=== PATIENT | male | born 1965 | race African-American/Black ===

== ENCOUNTER 2021-02-03 14:14 | Inpatient (IN) | payer MEDICARE, OTHER ==
[~2021-02-03] VITALS: Ht 154.9 cm; Wt 54.4 kg
[2021-02-03] VITALS (12 sets, daily range): BP systolic 80–166; BP diastolic 53–111
[~2021-02-03 14:14] MED LIST: ACET-868 GT; ALBU8.5H8 IH; ASPI-1169 GT; ATOR20TA GT; BISA10SU11 RC; CHOL400T11 GT; DOCU-141 GT; FAMO40TA7 GT; INSU100V11 SQ; MERO500P IV; METO-295 GT; NUT.237L67 GT; TOBRAMYCIN INJ; ZINC1CAP3 GT
[2021-02-03] MEDS ORDERED: ACETAMINOPHEN 650 MG/SUPP.RECT RC ONE ×2 (14:30→14:43)
--- NOTE | 2021-02-03 15:05 | NUR ---
[facility] FOR LOW BLOOD PRESSURE. NOT DIALYZED TODAY. PT EYES OPEN, NONVERBAL. RR EVEN & UNLABORED. ON VENT 100%. PLACED ON CAR CARDER, SR. PT SEEN & EVAL'D BY DR. RINCON. WILL CONT TO MONITOR.
[2021-02-03 15:20] LABS: BASOPHILS # (AUTO) 0.1 /CMM (0.0-0.2); BASOPHILS % (AUTO) 0.7 % (0.0-2.0); EOSINOPHILS % (AUTO) 2.1 % (0.0-6.0); LYMPHOCYTES # (AUTO) 0.9 /CMM (0.8-4.8); LYMPHOCYTES % (AUTO) 4.6 % (20.0-44.0); MEAN CORPUSCULAR HGB CONC 31 g/dl (31.0-36.0); MEAN CORPUSCULAR VOLUME 98 fL (80-96); MONOCYTES # (AUTO) 1.4 /CMM (0.1-1.30); MONOCYTES % (AUTO) 6.9 % (2.0-12.0); NEUTROPHILS # (AUTO) 16.9 /CMM (1.8-8.9); NEUTROPHILS % (AUTO) 85.7 % (43.0-81.0); PLATELET COUNT (AUTO) 280 /CMM (150-450); WHITE BLOOD COUNT (AUTO) 19.7 K/uL (4.3-11.0)
[2021-02-03 15:28] LABS: CALCIUM, SERUM 9.2 mg/dL (8.5-10.1); CARBON DIOXIDE 28 mmol/L (21-32); CHLORIDE 101 mmol/L (98-107); CREATININE 3.2 mg/dL (0.6-1.3); GLUCOSE 155 mg/dL (74-106); POTASSIUM 3.7 mmol/L (3.5-5.1); SODIUM SERUM 142 mmol/L (136-145); UREA NITROGEN, BLOOD 74 mg/dL (7-18)
[2021-02-03 15:29] LABS: RED BLOOD CELL COUNT(AUTO) 1.89 MIL/uL (4.5-6.0)
[2021-02-03 15:30] LABS: HEMATOCRIT 19 % (39-51); HEMOGLOBIN 5.8 g/dL (13.5-17.5)
[2021-02-03] MEDS ORDERED: VIT1TABL44 GT (15:32)
[2021-02-03] MEDS ORDERED: INSU100V7 SQ (15:32)
[2021-02-03] MEDS ORDERED: MELA3TAB41 GT (15:32)
[2021-02-03] MEDS ORDERED: HYDR-4209 PO (15:32)
[2021-02-03] MEDS ORDERED: PANT40TA49 GT (15:32)
[2021-02-03] MEDS ORDERED: NA P133E RC (15:32)
[2021-02-03] MEDS ORDERED: CEFT600V IV (15:32)
[2021-02-03] MEDS ORDERED: POLY17PO4 PO (15:32)
[2021-02-03] MEDS ORDERED: ALBU8.5H8 IH (15:32)
[2021-02-03] MEDS ORDERED: ONDA-97 GT (15:32)
[2021-02-03] MEDS ORDERED: LEVE500T20 GT (15:32)
[2021-02-03 15:41] LABS: ALANINE AMINOTRANSFERASE 57 U/L (12-78); ALBUMIN 1.8 g/dL (3.4-5.0); ALKALINE PHOSPHATASE 157 U/L (46-116); ASPARTATE AMINOTRANSFERASE 44 U/L (15-37); BILIRUBIN,TOTAL 0.3 mg/dL (0.2-1.0); TOTAL PROTEIN, SERUM 7.3 g/dL (6.4-8.2)
[2021-02-03 15:53] LABS: D-DIMER 3.41 mg/L(FEU (0.17-0.50)
[2021-02-03] MEDS ORDERED: IV NS 0.9% 500 ML IV ONE (16:00)
[2021-02-03] MEDS ORDERED: VANCOMYCIN 1 GM in IV D5W 250 ML IV ONE (16:00)
[2021-02-03] MEDS ORDERED: PIPERACILLIN /TAZOBACTAM 3.375 G in IV D5W 50 ML IV ONE (16:00)
[2021-02-03 16:07] LABS: BAND % (MANUAL) 1 % (0.0-5.0); EOSINOPHILS % (MANUAL) 5 % (0-4); LYMPHOCYTES % (MANUAL) 6 % (16-48); MONOCYTES % (MANUAL) 9 % (0-11.0); NEUTROPHILS % (MANUAL) 79 (42-76)
--- NOTE | 2021-02-03 16:21 | NUR ---
RT Placed pt on ventilator settings provided by transport RT. Patient tolerating settings well. Back up trach + ambu bag at bedside. Will continue to monitor.
[2021-02-03 16:34] LABS: CREATINE KINASE, TOTAL 36 U/L (39-308); FERRITIN 1630 ng/mL (8-388)
--- NOTE | 2021-02-03 16:55 | NUR ---
DR. RINCON AWARE OF LOW BP. STARTED 500ML OF NS. WILL CONT TO MONITOR.
--- NOTE | 2021-02-03 17:01 | NUR ---
PANEL PAGED. AWAITING HOSPITALIST CALL BACK.
--- NOTE | 2021-02-03 17:24 | NUR ---
NURSING SUP GAVE 258.
--- NOTE | 2021-02-03 17:41 | NUR ---
REPORT GIVEN TO KASSANDRA AT ICU. AWAITING TRANSFER TO FLOOR.
[2021-02-03] MEDS ORDERED: HYDROCODONE/APAP 5/325MG TABLET PO PRN (18:00)
[2021-02-03] MEDS ORDERED: DEXTROSE 50%-WATER 50 ML DISP.SYRIN IV PRN (18:00)
[2021-02-03] MEDS ORDERED: NOREPINEPHRINE 8 MG in IV NS 0.9% 250 ML IV PRN (18:00)
[2021-02-03] MEDS ORDERED: Medication Not On Formulary EA (Ondansetron Hcl 4 MG) GT PRN (18:00)
[2021-02-03] MEDS ORDERED: POLYETHYLENE GLYCOL 3350 17 GM POWD.PACK PO PRN (18:00)
[2021-02-03] MEDS ORDERED: ONDANSETRON HCL/PF 4 MG/2 ML VIAL IVP PRN (18:00)
[2021-02-03] MEDS ORDERED: ACETAMINOPHEN 325 MG TABLET PO PRN ×2 (18:00)
[2021-02-03] MEDS ORDERED: ALBUTEROL FS 2.5 MG/3 ML VIAL.NEB NEB PRN (18:30)
--- NOTE | 2021-02-03 18:45 | NUR ---
VALIDATION MANAGER NOTES S/P 1 UNIT PRBC, VSS. WILL CONTINUE TO MONITOR.
[2021-02-03] MEDS: BLOOD SUGAR DIAGNOSTIC 1 EACH STRIP IN SCH (18:47)
[2021-02-03] MEDS: INSULIN REGULAR, HUMAN 100 UNIT/ML 3 ML VIAL SQ PRN (18:48)
[2021-02-03] MEDS ORDERED: POLYETHYLENE GLYCOL 3350 17 GM POWD.PACK GT PRN (19:00)
[2021-02-03] MEDS ORDERED: VANCOMYCIN 500 MG in IV D5W 100 ML IV PRN (19:00)
[2021-02-03] MEDS ORDERED: HYDROCODONE/APAP 5/325MG TABLET GT PRN (19:00)
--- NOTE | 2021-02-03 19:00 | NUR ---
CONTROL OPERATOR NOTES RECEIVED PATIENT 18:30, CURRENTLY RUNNING 1 UNIT OF PRBC, TRACH-VENT TOLERATING CURRENT SETTING SATING 100% , OBTUNDED, AROUSABLE TO PAIN, VSS, PICC LINE ON NELIDA, SR ON PROCESSING TECH, NOTED WITH GTUBE, CLAMPED, NO RSV NOTED. SAFETY MEASURES INITIATED, BED IN LOWEST LOCKED POSITION, SR UP X2, HOB ELEVATED, CALL LIGHT WITHIN REACH, ENDORSED TO GAMEPLAY ENGINEER NURSE FOR LKUE.
--- NOTE | 2021-02-03 19:20 | NUR ---
ICU/ROLL SLICING MACHINE TENDER RECIEVED REPORT FROM DAY NURSE. SEE FLOWSHEET FOR ASSESSMENT. SKIN ISSUES ADDRESSED ON THE FLOWSHEET ALONG WITH INTERVENTIONS TO THESE. PT WAS TURNED AND REPOSITIONED FOR COMFORT AND CARE. NO ACUTE DISTRESS SEEN AT THIS TIME. WILL CONTINUE TO MONITOR THIS PT.
[2021-02-03] MEDS: ALBUTEROL FS 2.5 MG/3 ML VIAL.NEB NEB SCH (19:30)
--- NOTE | 2021-02-03 19:35 | NUR ---
ICU/WELL REACTIVATOR OPERATOR PT'S BLOOD PRESSURE LOW FOR TWO CYCLES IN THE 80'S, DAY RN WAS STILL ON THE FLOOR, NOTIFED HIM ABOUT THIS. LEVO WAS STARTED. WILL CONTINUE TO MONITOR THIS PT AND HER BP.
[2021-02-03 19:49] LABS: BILIRUBIN,DIRECT 0.1 mg/dL (0.0-0.2)
--- NOTE | 2021-02-03 20:33 | NUR ---
RECEIVED PT TRACH PORTEX 7 ON VENT. PT TOLERATING VENT SETTINGS. SX'D SML AMT OF THICK YELLOW SECRETIONS. TRACH SECURED, CUFF CHECKED. VENT ALARMS SET AND AUDIBLE. CONTINUE TO MONITOR. Addendum: 02/03/21 at 2041 by QUYEN ALANIZ RT Amended: Links added.
--- NOTE | 2021-02-03 20:45 | NUR ---
ICU/CARE PROFESSIONALS 1944-LEVO 8MG STARTED AT 0.1MCG/HR FOR LOW BP 80'S BY DAY RN. 1949-LEVO WAS DECREASED DOWN TO 0.08MCG FOR INCREASED HEART RATE 130'S WELL INCREASED BP 130'S 1999-LEVO WAS DECREASED DOWN TO 0.06MCG FOR BP WILL CONTINUE TO MONITOR THIS PT.
[2021-02-03] MEDS ORDERED: CEFTAROLINE FOSAMIL ACETATE IV SCH (21:00)
--- NOTE | 2021-02-03 21:00 | NUR ---
ICU/SENIOR MEDICAL TRANSCRIPTIONIST REPORT GIVEN TO REGISTRY NURSE WENDY Hoff FOR CONTINUITY OF CARE.
[2021-02-03 21:08] LABS: HEMOGLOBIN 7.1 g/dL (13.5-17.5)
[2021-02-03] MEDS: INSULIN GLARGINE, 100 UNIT/ML CARTRIDGE SQ SCH (22:00)
[2021-02-03] MEDS ORDERED: Medication Not On Formulary EA (Melatonin 3 MG) GT SCH (22:00)
[2021-02-03] MEDS: HYDROCORTISONE SOD SUCCINATE 100 MG/2 ML VIAL IV SCH (23:02)
[2021-02-04] VITALS (92 sets, daily range): BP systolic 84–183; BP diastolic 43–129
[2021-02-04] MEDS ORDERED: PIPERACILLIN /TAZOBACTAM 3.375 G in IV D5W 50 ML IV SCH
[2021-02-04] MEDS: PIPERACILLIN /TAZOBACTAM 2.25 G in IV D5W 50 ML IV SCH ×3 (00:37→16:28)
[2021-02-04] MEDS: BLOOD SUGAR DIAGNOSTIC 1 EACH STRIP IN SCH ×5 (00:37→23:26)
[2021-02-04] MEDS: INSULIN REGULAR, HUMAN 100 UNIT/ML 3 ML VIAL SQ PRN ×5 (00:38→23:27)
[2021-02-04 00:43] LABS: HEMOGLOBIN 7.4 g/dL (13.5-17.5)
[2021-02-04] MEDS: ALBUTEROL FS 2.5 MG/3 ML VIAL.NEB NEB SCH ×4 (01:22→19:49)
--- NOTE | 2021-02-04 02:46 | NUR ---
patients blood sugar 2200 was 96 lantus 9 units not given. patients temp. 99 patient sweating given bed bath change leads. 2400 blood sugar 122 no insulin given patient sinus tact on monitor 110. patient on levophed at 0.06mcg b/p 110 77. patient has gt clamped no feeding infusing patient has a lt. upper piccline single lumen. patient has a left upper perma cath for dialysis.
[2021-02-04 04:33] LABS: BASOPHILS # (AUTO) 0.1 /CMM (0.0-0.2); BASOPHILS % (AUTO) 0.3 % (0.0-2.0); EOSINOPHILS % (AUTO) 0.1 % (0.0-6.0); HEMATOCRIT 23 % (39-51); HEMOGLOBIN 7.2 g/dL (13.5-17.5); LYMPHOCYTES # (AUTO) 0.4 /CMM (0.8-4.8); LYMPHOCYTES % (AUTO) 1.7 % (20.0-44.0); MEAN CORPUSCULAR HGB CONC 32 g/dl (31.0-36.0); MEAN CORPUSCULAR VOLUME 94 fL (80-96); MONOCYTES # (AUTO) 0.4 /CMM (0.1-1.30); MONOCYTES % (AUTO) 1.6 % (2.0-12.0); NEUTROPHILS # (AUTO) 23.8 /CMM (1.8-8.9); NEUTROPHILS % (AUTO) 96.3 % (43.0-81.0); PLATELET COUNT (AUTO) 301 /CMM (150-450); RED BLOOD CELL COUNT(AUTO) 2.41 MIL/uL (4.5-6.0); WHITE BLOOD COUNT (AUTO) 24.7 K/uL (4.3-11.0)
[2021-02-04] MEDS: HYDROCORTISONE SOD SUCCINATE 100 MG/2 ML VIAL IV SCH ×3 (04:47→21:03)
[2021-02-04 05:04] LABS: ALBUMIN 1.9 g/dL (3.4-5.0); BILIRUBIN,TOTAL 0.5 mg/dL (0.2-1.0); CREATININE 3.7 mg/dL (0.6-1.3); MAGNESIUM 2.7 mg/dL (1.8-2.4); PHOSPHORUS 4.6 mg/dL (2.5-4.9); POTASSIUM 4.4 mmol/L (3.5-5.1); TOTAL PROTEIN, SERUM 7.7 g/dL (6.4-8.2)
[2021-02-04 05:22] LABS: THYROID STIMULATING HORMONE 2.553 uIU/mL (0.358-3.74)
--- NOTE | 2021-02-04 07:20 | NUR ---
DEVELOPMENT AND PLANNING ENGINEER NOTES RECEIVED PATIENT IN BED RESTING COMFORTABLY IN MODERATE HIGH BACK REST, TRACH-VENT TOLERATING CURRENT SETTING SATING 100% ,OBTUNDED, AROUSABLE TO PAIN, PICC LINE ON NELIDA ONE LUMEN, CURRENTLY RUNNING LEVO @0.06 MCG/KG/MIN, ST ON ELECTRICAL POWER ENGINEER, NOTED WITH GTUBE, CLAMPED, NO RSV NOTED. SAFETY MEASURES MAINTAINED, BED IN LOWEST LOCKED POSITION, SR UP X2, CALL LIGHT WITHIN REACH, WILL CONTINUE TO MONITOR.
--- NOTE | 2021-02-04 07:50 | NUR ---
RT neb tx not given due to pending lab results. eleno shah, notified
[2021-02-04] MEDS: LEVETIRACETAM SOL (5 ML) 100 MG/ML UDC GT SCH (08:19)
[2021-02-04] MEDS: VIT B CMPLX 3/FA/VIT C/BIOTIN 1 TAB TABLET GT SCH (08:19)
[2021-02-04] MEDS: PANTOPRAZOLE 40 MG VIAL IV SCH (08:19)
[2021-02-04] MEDS ORDERED: PANTOPRAZOLE 40 MG TABLET.DR PO SCH (09:00)
--- NOTE | 2021-02-04 09:32 | NUR ---
RT pt received on mechanical vent with current settings. trached, portex 7. vent plugged in to red outlet. airway patent and secure. ambu bag at hob. spare trach at bedside. moderate secretions suctioned via trach. alarms on and audible. no resp distress, no sob at this time. will cont to monitor
[2021-02-04 10:39] LABS: ABG BASE EXCESS -1.9 mmol/L; ABG OXYGEN SATURATION 96.9 % (92.0-98.5); ABG PCO2 32.5 mmHg (35.0-45.0); ABG PH 7.445 (7.350-7.450); ABG PO2 90.7 mmHg (75.0-100.0); AaDO2 157.1 mmHg; COHb 1.1 % (0.5-1.5); MetHb 0.3 % (0.0-1.5); O2Hb 95.5 % (94.0-97.0); SITE, ABG Left Radial; VENT MODE, BG AC 16 550 40% +5
[2021-02-04] MEDS: ACETAMINOPHEN 650 MG/20.3 ML UDC GT PRN (11:17)
[2021-02-04 17:52] LABS: OCCULT BLOOD STOOL NEGATIVE (NEGATIVE)
[2021-02-04] MEDS ORDERED: EPOETIN ALFA (10,000 UNIT) 10,000 UNIT/ML VIAL IV ONE (19:00)
--- NOTE | 2021-02-04 19:18 | NUR ---
MANAGER GARDEN OPENING NOTES: Rec'd pt in bed, obtunded on trach to mechanical vent. Tolerating vent settings well. SR on tele monitor. NELIDA PICC and SIERRA midline patent and flushed w/ Levo infusing at 0.04mcg/kg/min and blood transfusion infusing. LCW HD cath noted. GT site intanct, clampe. Law cath in place, pt anuric. Safety measures in place. Will continue to monitor.
--- NOTE | 2021-02-04 19:19 | NUR ---
SOFTWARE CONSULTANT NOTES PATIENT IN BED RESTING COMFORTABLY IN MODERATE HIGH BACK REST, TRACH-VENT TOLERATING CURRENT SETTING SATING 100% ,OBTUNDED, AROUSABLE TO PAIN, PICC LINE ON NELIDA ONE LUMEN AND MIDLINE ON SIERRA, CURRENTLY RUNNING LEVO @0.04 MCG/KG/MIN AND TRANSFUSING 1 UNIT OF PRBC, SR ON LEAD CYTOGENETIC TECHNOLOGIST, NOTED WITH GTUBE, CLAMPED, NO RSV NOTED. SAFETY MEASURES MAINTAINED, BED IN LOWEST LOCKED POSITION, SR UP X2, CALL LIGHT WITHIN REACH, ENDORSED TO SUPERVISOR POST WAVE NURSE FOR LUKE.
--- NOTE | 2021-02-04 19:36 | NUR ---
CUSTOM FRAME ASSEMBLER NOTE: Dialysis nurse at bedside. Starting HD.
--- NOTE | 2021-02-04 20:50 | NUR ---
DOG BOARDER NOTE: Blood transfusion ended. No AE noted. Pt tolerated well. Will continue to monitor.
[2021-02-04] MEDS: INSULIN GLARGINE, 100 UNIT/ML CARTRIDGE SQ SCH (21:10)
--- NOTE | 2021-02-04 21:47 | NUR ---
MULTIPLE SPINDLE ROUTER OPERATOR NOTE: S/P dialysis.500ml removed. Pt stable. Will continue to monitor.
[2021-02-04 21:53] LABS: BASOPHILS % (AUTO) 0.2 % (0.0-2.0); HEMATOCRIT 28 % (39-51); HEMOGLOBIN 9.1 g/dL (13.5-17.5); LYMPHOCYTES # (AUTO) 0.5 /CMM (0.8-4.8); LYMPHOCYTES % (AUTO) 1.8 % (20.0-44.0); MEAN CORPUSCULAR HGB CONC 32 g/dl (31.0-36.0); MEAN CORPUSCULAR VOLUME 93 fL (80-96); MONOCYTES # (AUTO) 0.7 /CMM (0.1-1.30); MONOCYTES % (AUTO) 2.9 % (2.0-12.0); NEUTROPHILS # (AUTO) 23.4 /CMM (1.8-8.9); NEUTROPHILS % (AUTO) 95.1 % (43.0-81.0); PLATELET COUNT (AUTO) 347 /CMM (150-450); RED BLOOD CELL COUNT(AUTO) 3.04 MIL/uL (4.5-6.0); WHITE BLOOD COUNT (AUTO) 24.6 K/uL (4.3-11.0)
[2021-02-04 22:38] LABS: BASOPHILS % (MANUAL) 0 % (0.0-2.0); EOSINOPHILS % (MANUAL) 0 % (0-4); LYMPHOCYTES % (MANUAL) 3 % (16-48); MONOCYTES % (MANUAL) 5 % (0-11.0); NEUTROPHILS % (MANUAL) 92 (42-76)
--- NOTE | 2021-02-04 23:11 | NUR ---
WELDER PRODUCTION LINE COMBINATION NOTE: Pt's BP stable, 135/81, titrated Levo off. Will continue to monitor BP closely and restart if needed.
[2021-02-05] VITALS (50 sets, daily range): BP systolic 87–121; BP diastolic 48–77
[2021-02-05] MEDS: PIPERACILLIN /TAZOBACTAM 2.25 G in IV D5W 50 ML IV SCH ×3 (01:15→16:21)
[2021-02-05] MEDS: ALBUTEROL FS 2.5 MG/3 ML VIAL.NEB NEB SCH ×4 (01:35→19:35)
[2021-02-05 04:31] LABS: BASOPHILS % (AUTO) 0.1 % (0.0-2.0); HEMATOCRIT 26 % (39-51); HEMOGLOBIN 8.4 g/dL (13.5-17.5); LYMPHOCYTES # (AUTO) 0.5 /CMM (0.8-4.8); LYMPHOCYTES % (AUTO) 3.2 % (20.0-44.0); MEAN CORPUSCULAR HGB CONC 33 g/dl (31.0-36.0); MEAN CORPUSCULAR VOLUME 93 fL (80-96); MONOCYTES # (AUTO) 0.6 /CMM (0.1-1.30); MONOCYTES % (AUTO) 3.4 % (2.0-12.0); NEUTROPHILS # (AUTO) 15.8 /CMM (1.8-8.9); NEUTROPHILS % (AUTO) 93.3 % (43.0-81.0); PLATELET COUNT (AUTO) 291 /CMM (150-450); RED BLOOD CELL COUNT(AUTO) 2.77 MIL/uL (4.5-6.0); WHITE BLOOD COUNT (AUTO) 16.9 K/uL (4.3-11.0)
[2021-02-05 04:47] LABS: CREATININE 2.9 mg/dL (0.6-1.3); MAGNESIUM 2.4 mg/dL (1.8-2.4); PHOSPHORUS 4.6 mg/dL (2.5-4.9); POTASSIUM 4.6 mmol/L (3.5-5.1)
[2021-02-05] MEDS: HYDROCORTISONE SOD SUCCINATE 100 MG/2 ML VIAL IV SCH ×2 (05:30→16:21)
[2021-02-05] MEDS: BLOOD SUGAR DIAGNOSTIC 1 EACH STRIP IN SCH ×3 (05:36→17:12)
[2021-02-05] MEDS: INSULIN REGULAR, HUMAN 100 UNIT/ML 3 ML VIAL SQ PRN ×3 (05:37→17:14)
--- NOTE | 2021-02-05 07:20 | NUR ---
RN OPENING NOTES RECEIVED PATIENT OBTUNDED, TRACH TO VENT AND TOLERATING SETTINGS AC 14 TV 400 FIO2 40% PEEP 5. SR 90 ON BEDSIDE MONITOR. GT CLAMPED. SIERRA MIDLINE WITH TKO IN PROGRESS, NELIDA PICC AND LCW HD CATH NOTED. SAFETY CHECKS IN PLACE. WILL CONTINUE TO MONITOR.
[2021-02-05] MEDS: PANTOPRAZOLE 40 MG VIAL IV SCH (08:06)
[2021-02-05] MEDS: LEVETIRACETAM SOL (5 ML) 100 MG/ML UDC GT SCH (08:06)
[2021-02-05] MEDS: VIT B CMPLX 3/FA/VIT C/BIOTIN 1 TAB TABLET GT SCH (08:06)
--- NOTE | 2021-02-05 08:20 | NUR ---
@ 0820 ON WEANING TRIAL WITH PARAMETERS BELOW PER DR. WHALEN: CPAP 5 PS 7 FIO2 40% Addendum: 02/05/21 at 0823 by FRANCESCA GARZA RT Amended: Links added.
[2021-02-05] MEDS ORDERED: EPOETIN ALFA-EPBX 10,000 UNIT/ML VIAL IV ONE (09:00)
[2021-02-05 10:29] LABS: ABG BASE EXCESS 0.5 mmol/L; ABG PCO2 40.2 mmHg (35.0-45.0); ABG PH 7.413 (7.350-7.450); ABG PO2 150.5 mmHg (75.0-100.0); AaDO2 88.5 mmHg; COHb 0.6 % (0.5-1.5); MetHb 0.3 % (0.0-1.5); O2Hb 98.1 % (94.0-97.0); SITE, ABG Right Brachial; VENT MODE, BG PS 7
--- NOTE | 2021-02-05 10:35 | NUR ---
fio2 decrease from 40% to 28% fio2 due to 100% spo2 and 150 mmHg paO2. RN notified. Addendum: 02/05/21 at 1036 by FRANCESCA GARZA RT Amended: Links added.
[2021-02-05] MEDS ORDERED: NEPRO 1,000 ML BOTTLE GT PRN (15:30)
--- NOTE | 2021-02-05 18:20 | NUR ---
RN CLOSING NOTES PATIENT IS AWAKE BUT NONVERBAL. TRACH TO VENT AND TOLERATING SIMV SETTINGS WITH FIO2 28% PEEP 5. SR 94 ON BEDSIDE MONITOR. GT CLAMPED BUTMAY HAVE TUBE FEEDING. STILL WAITING FOR FEEDING PUMP AT THIS TIME. SIERRA MIDLINE AND LCW HD CATH NOTED. NELIDA PICC WITH TKO IN PROGRESS. SAFETY CHECKS IN PLACE. WILL ENDORSE TO NIGHT RN FOR CONTINUITY OF CARE.
[2021-02-05] MEDS: NEPRO 1,000 ML BOTTLE GT PRN (19:05)
--- NOTE | 2021-02-05 19:27 | NUR ---
BICYCLE II ASSEMBLER OPENING NOTES: Rec'd pt in bed, awake, but does not follow commands or track. On trach to mechanical vent, tolerating settings well. SR on tele monitor. NELIDA PICC and SIERRA midline patent and flushed. Dressings c/d/i. LCW HD cath noted. GT site intact w/ Nepro infusing at 10ml/hr. Goal of 40ml/hr. Will increase as tolerated. Pt anuric. Safety measures in place. Will continue to monitor.
[2021-02-05] MEDS: INSULIN GLARGINE, 100 UNIT/ML CARTRIDGE SQ SCH (21:41)
--- NOTE | 2021-02-05 22:01 | NUR ---
ELECTRICAL SIGN SERVICER NOTE: No residual noted at this time. Tolerating feeding well. Increased TF to 20ml/hr. Will continue to monitor.
[2021-02-06] VITALS (31 sets, daily range): BP systolic 94–112; BP diastolic 59–79
[2021-02-06] MEDS: BLOOD SUGAR DIAGNOSTIC 1 EACH STRIP IN SCH ×5 (00:10→23:31)
[2021-02-06] MEDS: INSULIN REGULAR, HUMAN 100 UNIT/ML 3 ML VIAL SQ PRN ×5 (00:11→23:32)
--- NOTE | 2021-02-06 00:11 | NUR ---
CONSUMER MARKETING MANAGER NOTE: No residual noted. Increased pt's TF to 30ml/hr. Will continue to monitor.
[2021-02-06] MEDS ORDERED: IV NS 0.9% 250 ML IV PRN (01:00)
[2021-02-06] MEDS: PIPERACILLIN /TAZOBACTAM 2.25 G in IV D5W 50 ML IV SCH ×2 (01:25→08:04)
--- NOTE | 2021-02-06 01:38 | NUR ---
VICE PRESIDENT MEDIA RELATIONS NOTE: No residuals noted. Pt tolerating feeding well. Increase to 40ml/hr. Goal rate met. Will continue to monitor.
[2021-02-06] MEDS: ALBUTEROL FS 2.5 MG/3 ML VIAL.NEB NEB SCH ×4 (02:08→20:07)
[2021-02-06 04:42] LABS: BASOPHILS % (AUTO) 0.1 % (0.0-2.0); HEMATOCRIT 26 % (39-51); HEMOGLOBIN 8.4 g/dL (13.5-17.5); LYMPHOCYTES # (AUTO) 1.1 /CMM (0.8-4.8); LYMPHOCYTES % (AUTO) 6.9 % (20.0-44.0); MEAN CORPUSCULAR HGB CONC 32 g/dl (31.0-36.0); MEAN CORPUSCULAR VOLUME 95 fL (80-96); MONOCYTES # (AUTO) 1.4 /CMM (0.1-1.30); MONOCYTES % (AUTO) 9.1 % (2.0-12.0); NEUTROPHILS # (AUTO) 12.9 /CMM (1.8-8.9); NEUTROPHILS % (AUTO) 83.9 % (43.0-81.0); PLATELET COUNT (AUTO) 279 /CMM (150-450); RED BLOOD CELL COUNT(AUTO) 2.78 MIL/uL (4.5-6.0); WHITE BLOOD COUNT (AUTO) 15.4 K/uL (4.3-11.0)
[2021-02-06 04:58] LABS: MAGNESIUM 2.7 mg/dL (1.8-2.4); PHOSPHORUS 6.5 mg/dL (2.5-4.9); POTASSIUM 3.7 mmol/L (3.5-5.1)
[2021-02-06] MEDS: HYDROCORTISONE SOD SUCCINATE 100 MG/2 ML VIAL IV SCH ×2 (05:10→16:34)
--- NOTE | 2021-02-06 07:35 | NUR ---
ICU/RN PT IS CHRONIC TRACH ON THE VENT ON CPAP MODE,FIO2-28%.SAT O2-100%.AWAKE NOT FOLLOWS COMMAND.CONTRACTED.OFF PRESSORS. V/S STABLE,AFEBRILE. NO PAIN REPORTED AT THIS TIME. G-TUBE INFUSINGN WITH NEPRO NO RESIDUAL NOTED.PT IS ANURIC ON HD.LEFT UPPER ARM PICC LINE. SUCTION PROVIDED REPOSITION FORCOMFORT.LABS REVIEW. NOTIFIED.WAITING FOR HD TODAY.
[2021-02-06] MEDS: PANTOPRAZOLE 40 MG VIAL IV SCH (08:00)
[2021-02-06] MEDS: VIT B CMPLX 3/FA/VIT C/BIOTIN 1 TAB TABLET GT SCH (08:00)
[2021-02-06] MEDS: LEVETIRACETAM SOL (5 ML) 100 MG/ML UDC GT SCH (08:00)
[2021-02-06] MEDS ORDERED: EPOETIN ALFA-EPBX 10,000 UNIT/ML VIAL IV ONE (08:30)
[2021-02-06] MEDS ORDERED: Z GUARD REMEDY 2 OZ OINT TP PRN (09:00)
--- NOTE | 2021-02-06 09:00 | NUR ---
ICU/RN DUE MEDS ARE GIVEN ORDERED.LEFT UPPER ARM PICC LINE IS OLD.REMOVED ORDERED.NO S/S OF BLEEDING NOTED.
[2021-02-06] MEDS: CEFEPIME 2 GM in IV D5W 100 ML IV SCH (16:34)
[2021-02-06] MEDS: NEPRO 1,000 ML BOTTLE GT PRN (16:53)
[2021-02-06] MEDS: METRONIDAZOLE 500MG/ NS 100ML 500 MG in PREMIX 1 EA IV SCH (17:02)
--- NOTE | 2021-02-06 18:00 | NUR ---
ICU/RN PM CARE PROVIDED.DUE MEDS ARE GIVEN ORDERED. HD STARTED ORDERED.ALBUMIN GIVEN WITH HD. SUCTION PROVIDED.REPOSITION FOR COMFORT.
[2021-02-06] MEDS ORDERED: ALBUMIN 25% 25 GM in PREMIX 1 EA IV PRN (19:00)
--- NOTE | 2021-02-06 19:25 | NUR ---
CROSSBAR SWITCH ADJUSTER OPENING NOTES: Rec'd pt in bed, awake, but doesn't follow commands. On trach to mechanical vent, tolerating settings well. SR on tele monitor. SIERRA midline patent and flushed. Dressings c/d/i. LCW HD cath noted, receiving dialysis at this time. market asset protection manager at bedside. GT site intact w/ Nepro infusing at 40ml/hr. Minimal residual noted. Pt anuric. Safety measures in place. Will continue to monitor.
--- NOTE | 2021-02-06 20:06 | NUR ---
COBOL PROGRAMMER NOTE: Dialysis done. 1L out. Will continue to monitor.
[2021-02-06] MEDS: INSULIN GLARGINE, 100 UNIT/ML CARTRIDGE SQ SCH (21:34)
[2021-02-07] VITALS (13 sets, daily range): BP systolic 97–122; BP diastolic 63–86
[2021-02-07] MEDS: ALBUTEROL FS 2.5 MG/3 ML VIAL.NEB NEB SCH ×4 (01:26→19:51)
[2021-02-07 04:24] LABS: BASOPHILS % (AUTO) 0.1 % (0.0-2.0); HEMATOCRIT 27 % (39-51); HEMOGLOBIN 8.6 g/dL (13.5-17.5); LYMPHOCYTES # (AUTO) 0.8 /CMM (0.8-4.8); LYMPHOCYTES % (AUTO) 4.8 % (20.0-44.0); MEAN CORPUSCULAR HGB CONC 32 g/dl (31.0-36.0); MEAN CORPUSCULAR VOLUME 96 fL (80-96); MONOCYTES # (AUTO) 1.5 /CMM (0.1-1.30); MONOCYTES % (AUTO) 8.6 % (2.0-12.0); NEUTROPHILS # (AUTO) 15.1 /CMM (1.8-8.9); NEUTROPHILS % (AUTO) 86.5 % (43.0-81.0); PLATELET COUNT (AUTO) 274 /CMM (150-450); RED BLOOD CELL COUNT(AUTO) 2.82 MIL/uL (4.5-6.0); WHITE BLOOD COUNT (AUTO) 17.4 K/uL (4.3-11.0)
[2021-02-07 04:41] LABS: CALCIUM, SERUM 8.6 mg/dL (8.5-10.1); CREATININE 3.2 mg/dL (0.6-1.3); MAGNESIUM 2.3 mg/dL (1.8-2.4); PHOSPHORUS 3.8 mg/dL (2.5-4.9); POTASSIUM 2.9 mmol/L (3.5-5.1)
[2021-02-07] MEDS: HYDROCORTISONE SOD SUCCINATE 100 MG/2 ML VIAL IV SCH ×2 (04:46→16:15)
[2021-02-07] MEDS: CEFEPIME 2 GM in IV D5W 100 ML IV SCH ×2 (04:46→16:15)
[2021-02-07] MEDS: METRONIDAZOLE 500MG/ NS 100ML 500 MG in PREMIX 1 EA IV SCH ×2 (05:30→17:06)
[2021-02-07] MEDS: BLOOD SUGAR DIAGNOSTIC 1 EACH STRIP IN SCH ×3 (05:36→17:00)
[2021-02-07] MEDS: INSULIN REGULAR, HUMAN 100 UNIT/ML 3 ML VIAL SQ PRN ×3 (05:36→17:06)
--- NOTE | 2021-02-07 07:30 | NUR ---
OPENING NOTE: REPORT RECEIVED FROM WENDY HUFFMAN. PT ALERT, NON VERBAL, NOT FOLLOWING COMMANDS OR TRACKING. PT IS CONTRACTED. TUBE FEEDING INFUSING PER MD ORDERS WITHOUT DIFFICULTY. PT IS ANURIC, NO ABERNATHY CATHETER NOTED. PT CHECKED ON HOURLY AND PRN BY NURSING STAFF.
[2021-02-07] MEDS ORDERED: POTASSIUM CHLORIDE 20 MEQ POWDER PACKET GT ONE (09:00)
[2021-02-07] MEDS: LEVETIRACETAM SOL (5 ML) 100 MG/ML UDC GT SCH (09:29)
[2021-02-07] MEDS: PANTOPRAZOLE 40 MG VIAL IV SCH (09:30)
[2021-02-07] MEDS: POTASSIUM CHLORIDE 20 MEQ POWDER PACKET GT SCH ×2 (09:30→09:56)
[2021-02-07] MEDS: VIT B CMPLX 3/FA/VIT C/BIOTIN 1 TAB TABLET GT SCH (09:30)
--- NOTE | 2021-02-07 10:15 | NUR ---
PT TRANSFERRED TO ROOM 119-1. BEDSIDE REPORT GIVEN TO MARILU HUFFMAN. PT VOMITED IN ELEVATOR ON THE WAY TO NEW ROOM, MARILU INFORMED. ALL AM MEDS GIVEN PRIOR TO TRANSFER INCLUDING 100MCG OF POTASSIUM PER GT PER MD ORDERS. ALL SUPPLIES AND BELONGINGS SENT WITH PATIENT. PT CHECKED ON HOURLY AND PRN BY NURSING STAFF.
--- NOTE | 2021-02-07 18:53 | NUR ---
PT RECEIVED FROM ICU NURSE WITH EMESIS NOTED. STAFF CLAIMED PT VOMITTED WHEN MANUAL VENTILATIONS WHERE BEING PROVIDED. PT ON MECHANICAL VENT WITH APPROPRIATE SETTINGS TOLERATING WELL. NO S/S OF SOB OR RESPIRATORY DISTRESS. PT G-TUBE INTACT, AUSCULTATED FOR POSITIVE PLACEMENT AND FLUSHED AND CURRENTLY RUNNING TUBE FEEDING NEPRO AT 40 ML/HR. PT RIGHT UPPER ARM MIDLINE INTACT AND PATENT. SAFETY PRECAUTIONS IMPLEMENTED, SIDE RAILS UP X2, BED LOCKED IN LOWEST POSITION, CALL LIGHT WITHIN REACH. WILL ENDORSE CARE TO UPCOMING SHIFT.
[2021-02-07] MEDS: INSULIN GLARGINE, 100 UNIT/ML CARTRIDGE SQ SCH (22:05)
[2021-02-08] VITALS: BP 126/85
[2021-02-08] MEDS: BLOOD SUGAR DIAGNOSTIC 1 EACH STRIP IN SCH ×5 (01:10→23:29)
[2021-02-08] MEDS: INSULIN REGULAR, HUMAN 100 UNIT/ML 3 ML VIAL SQ PRN ×3 (01:13→23:32)
[2021-02-08] MEDS: ALBUTEROL FS 2.5 MG/3 ML VIAL.NEB NEB SCH ×4 (01:26→20:06)
[2021-02-08 04:00] VITALS: BP 136/92
[2021-02-08] MEDS: HYDROCORTISONE SOD SUCCINATE 100 MG/2 ML VIAL IV SCH (05:11)
[2021-02-08] MEDS: CEFEPIME 2 GM in IV D5W 100 ML IV SCH ×2 (05:11→17:12)
[2021-02-08 06:37] LABS: BASOPHILS % (AUTO) 0.1 % (0.0-2.0); EOSINOPHILS % (AUTO) 0.2 % (0.0-6.0); HEMATOCRIT 30 % (39-51); HEMOGLOBIN 9.4 g/dL (13.5-17.5); LYMPHOCYTES # (AUTO) 1.2 /CMM (0.8-4.8); LYMPHOCYTES % (AUTO) 5.5 % (20.0-44.0); MEAN CORPUSCULAR HGB CONC 31 g/dl (31.0-36.0); MEAN CORPUSCULAR VOLUME 98 fL (80-96); MONOCYTES # (AUTO) 1.9 /CMM (0.1-1.30); MONOCYTES % (AUTO) 8.7 % (2.0-12.0); NEUTROPHILS # (AUTO) 18.3 /CMM (1.8-8.9); NEUTROPHILS % (AUTO) 85.5 % (43.0-81.0); PLATELET COUNT (AUTO) 308 /CMM (150-450); RED BLOOD CELL COUNT(AUTO) 3.04 MIL/uL (4.5-6.0); WHITE BLOOD COUNT (AUTO) 21.4 K/uL (4.3-11.0)
[2021-02-08] MEDS: METRONIDAZOLE 500MG/ NS 100ML 500 MG in PREMIX 1 EA IV SCH ×2 (06:42→18:03)
[2021-02-08 07:00] LABS: CREATININE 4.5 mg/dL (0.6-1.3)
--- NOTE | 2021-02-08 07:54 | NUR ---
RESIDENTIAL SALES EXECUTIVE OPENING NOTE RECEIVED PATIENT LYING IN BED, EYES OPEN. PATIENT IS ALERT BUT NON VERBAL. DOES NOT TRACK OR FOLLOW COMMANDS. PATIENT IS CONTRACTED. IV ACCESS TO RIGHT UPPER ARM - INTACT AND PATENT. LEFT HD CATH NOTED. TUBE FEEDING INFUSING NEPRO @ 40ML/HR. PATIENT IS ANURIC, NO ABERNATHY CATHETER NOTED. SAFETY MEASURES IMPLEMENTED. WILL CONTINUE TO MONITOR.
[2021-02-08 08:00] VITALS: BP 136/92
[2021-02-08] MEDS: PANTOPRAZOLE 40 MG/PACK PACK GT SCH (09:03)
[2021-02-08] MEDS: LEVETIRACETAM SOL (5 ML) 100 MG/ML UDC GT SCH (09:03)
[2021-02-08] MEDS: VIT B CMPLX 3/FA/VIT C/BIOTIN 1 TAB TABLET GT SCH (09:03)
[2021-02-08 12:00] VITALS: BP 118/81
[2021-02-08 16:00] VITALS: BP 118/70
--- NOTE | 2021-02-08 19:30 | NUR ---
MOLDING MACHINE OPERATOR OPENING NOTE PATIENT CURRENTLY LYING IN BED, RESTING. PATIENT IS ALERT BUT NON VERBAL. RESPONDS TO TOUCH. DOES NOT TRACK OR FOLLOW COMMANDS. PATIENT IS CONTRACTED. IV ACCESS TO RIGHT UPPER ARM PICC - INTACT AND PATENT. LEFT HD CATH NOTED. TUBE FEEDING INFUSING NEPRO @ 40ML/HR. PATIENT IS ANURIC, NO ABERNATHY CATHETER NOTED. PATIENT KEPT CLEAN AND DRY THROUGHOUT SHIFT. SAFETY MEASURES IMPLEMENTED. REPORT GIVEN TO ATTENDING AMBULATORY CARE NURSE FOR LUKE.
[2021-02-08 20:00] VITALS: BP 110/72
--- NOTE | 2021-02-08 20:12 | NUR ---
RN NOTE PATIENT OBTUNDED IN BED. ON MECH VENT, TOLERATING SETTINGS WELL. NO SIGNS OF DISCOMFORT. ON G-TUBE NEPRO @ 40CC/HR, NO RESIDUAL NOTED. HEAD OF BED KEPT ELEVATED. IV ACCESS ON SIERRA PICC PATENT AND INTACT, FLUSHED WITH NS. LCW HD CATH NOTED, DRESSING DRY AND INTACT. BED LOCKED AND IN LOWEST POSITION. CALL LIGHT WITHIN REACH. ALL NEEDS ANTICIPATED.
--- NOTE | 2021-02-08 22:00 | NUR ---
DIALYSIS NURSE @ BEDSIDE. STARING HD.
[2021-02-08] MEDS: INSULIN GLARGINE, 100 UNIT/ML CARTRIDGE SQ SCH (23:32)
[2021-02-09] VITALS: BP 107/51
--- NOTE | 2021-02-09 00:20 | NUR ---
DIALYSIS DONE, 1600 ML REMOVED. VITAL SIGNS STABLE.
[2021-02-09] MEDS: ALBUTEROL FS 2.5 MG/3 ML VIAL.NEB NEB SCH ×4 (02:03→19:55)
[2021-02-09 04:00] VITALS: BP 106/79
[2021-02-09] MEDS: CEFEPIME 2 GM in IV D5W 100 ML IV SCH ×2 (04:23→16:05)
[2021-02-09] MEDS: METRONIDAZOLE 500MG/ NS 100ML 500 MG in PREMIX 1 EA IV SCH ×2 (05:18→17:26)
[2021-02-09] MEDS: BLOOD SUGAR DIAGNOSTIC 1 EACH STRIP IN SCH ×3 (05:33→17:51)
[2021-02-09] MEDS: INSULIN REGULAR, HUMAN 100 UNIT/ML 3 ML VIAL SQ PRN ×2 (05:36→17:38)
--- NOTE | 2021-02-09 06:46 | NUR ---
RN NOTE PATIENT OBTUNDED IN BED. ON MECH VENT, TOLERATING SETTINGS WELL. ON G-TUBE NEPRO @ 40CC/HR, NO RESIDUAL NOTED. HEAD OF BED KEPT ELEVATED. IV ACCESS ON SIERRA PICC PATENT AND INTACT, FLUSHED WITH NS. LCW HD CATH NOTED, DRESSING DRY AND INTACT. TURNED AND REPOSITIONED. TOLERATED BED BATH WELL. ALL DUE MEDS GIVEN ORDERED. BED LOCKED AND IN LOWEST POSITION. CALL LIGHT WITHIN REACH. WILL ENDORSE TO AM SHIFT.
[2021-02-09 07:26] LABS: CALCIUM, SERUM 8.7 mg/dL (8.5-10.1); CREATININE 3.5 mg/dL (0.6-1.3); POTASSIUM 3.2 mmol/L (3.5-5.1)
--- NOTE | 2021-02-09 07:49 | NUR ---
NURSERY ATTENDANT NOTE PATIENT IN BED WITH TRACH TO VENT SETTING ORDERED , OPEN BOTH EYES , UNABLE TO CHANGE TO COOLER AEROSOL PER RT PATIENT, NOTED WITH LABORED RESPIRATION RR 30 AT THIS TIME, TRACH CARE DONE SUCTION DONE,ON TELEMONITOR ST HR 108, ON G TUBE FEEDINGS ORDERED NO RESIDUAL NOTED AT THIS TIME ,KEEP HOB ELEVATED NOTES PATIENT IS DIAPHORETIC , RT UPPER ARM MID LINE IN PLACE AND FLUSHED WELL ,BED IN LOWEST AND LOCKED POSITION , CALL LIGHT WITHIN REACH WILL CONT TO MONITOR
--- NOTE | 2021-02-09 08:06 | NUR ---
pt. placed into cool aerosol @ 28% fio2 for weaning trial as order. trach cuff deflated. rn notified on changes. vital signs below: RR 22 - 24 BPM HR 101- 16 bpm spo2 97 - 100% no increase work of breathing noted Addendum: 02/09/21 at 0809 by FRANCESCA GARZA RT Amended: Links added.
[2021-02-09 08:09] VITALS: BP 96/65
--- NOTE | 2021-02-09 08:51 | NUR ---
CLAM SHUCKER NOTE PER RT PLACED ON COLLER AEROSOL 28% SATURATION ,SATURATION AT THIS TIME 96%
[2021-02-09] MEDS: VIT B CMPLX 3/FA/VIT C/BIOTIN 1 TAB TABLET GT SCH (08:57)
[2021-02-09] MEDS: LEVETIRACETAM SOL (5 ML) 100 MG/ML UDC GT SCH (08:57)
[2021-02-09] MEDS: PANTOPRAZOLE 40 MG/PACK PACK GT SCH (08:57)
[2021-02-09] MEDS ORDERED: POTASSIUM CHLORIDE 20 MEQ POWDER PACKET GT SCH (09:00)
[2021-02-09 09:23] LABS: ABG OXYGEN SATURATION 93.6 % (92.0-98.5); ABG PCO2 34.9 mmHg (35.0-45.0); ABG PH 7.479 (7.350-7.450); ABG PO2 67.6 mmHg (75.0-100.0); AaDO2 90.9 mmHg; COHb 1.8 % (0.5-1.5); MetHb 0.2 % (0.0-1.5); O2Hb 91.7 % (94.0-97.0); SITE, ABG Right Radial
--- NOTE | 2021-02-09 09:30 | NUR ---
BUTTERMAKER NOTE DR CRESPO AT BEDSIDE AWARE ABG RESULT STATED CONT ON COOLER AEROSOL
[2021-02-09 12:00] VITALS: BP 96/66
[2021-02-09] MEDS: NEPRO 1,000 ML BOTTLE GT SCH (14:24)
[2021-02-09 16:00] VITALS: BP 99/63
--- NOTE | 2021-02-09 18:59 | NUR ---
RN NOTE PT. CURRENTLY IN BED, OBTUNDED. TRACH T PIECE CONNECTED TO COOL AEROSOL, 28% 5L O2, TOLERATING WELL WITH SATURATIONS ABOVE 99%. ORAL CARE COMPLETED AND SUCTIONING DONE PRN. G TUBE FEEDINGS RUNNING 24HRS, NEPRO 40 ML/HR, TOLERATING WELL. RESIDUALS CHECKED, G TUBE FLUSHED. VITAL SIGNS WNL. PT IS CLEAN AND DRY. BED IN LOWEST POSITION. FREQUENT ROUNDING COMPLETED. NO ACUTE DISTRESS NOTED AT THIS TIME.
--- NOTE | 2021-02-09 19:30 | NUR ---
RN OPENING NOTES: RECEIVED PT A/OX1; NON VERBAL IN BED RESTING COMFORTABLY. PATIENT IN NO S/SX OF ACUTE DISTRESS AT THIS TIME. NO SOB NOTED. PATIENT'S BREATHING IS EVEN AND UNLABORED. PATIENT IS ON 5L OF OXYGEN VIA T-PIECE TOLERATING WELL. PATIENT ON TELE MONITORING READING SINUS TACHY HR IS @90s AT THE TIME OF RECEIVED. PT HAS G TUBE FLUSHING AND PATENT; SITE CLEAN DRY AND INTACT; NO RESIDUAL NOTED; CONNECTED TO GTUBE FEEDING OF NEPRO @40CC/HR;TOLERATES WELL. NOTED IV SITE ON R UA MIDLINE PATENT, INTACT AND FLUSHING WELL; NO S/S OF INFECTION OR INFILTRATION. PT ALSO HAS ; CW HD CATH SECURED AND INTACT NO SIGNS OF INFECTION. SAFETY MEASURES HAVE BEEN PROVIDED AND IMPLEMENTED. PATIENT BED ALARM IS ON. HEAD OF BED ELEVATED. BED IS LOCKED, IN LOWEST POSITION AND SIDE RAILS UP. CALL LIGHT WITHIN REACH OF THE PATIENT. APPLICABLE ISOLATION PRECAUTIONS IN PLACE. WILL CONTINUE TO MONITOR AND REASSESS FOR ANY CHANGES AND WILL CARRY OUT ANY ONGOING AND ACTIVE MD ORDER.
[2021-02-09 20:00] VITALS: BP 101/66
[2021-02-09] MEDS: INSULIN GLARGINE, 100 UNIT/ML CARTRIDGE SQ SCH (22:37)
--- NOTE | 2021-02-09 23:00 | NUR ---
RN NOTES NO CHANGE IN PATIENT CONDITION AT THIS TIME PATIENT VITALS STABLE, NO SIGNS OF ACUTE RESPIRATORY DISTRESS. IRRIGATION INSTALLATION SPECIALIST MADE AWARE. WILL CONTINUE TO MONITOR AND REASSESS FOR ANY CHANGES THROUGHOUT THE SHIFT.
[2021-02-10] VITALS: BP 107/68
[2021-02-10] MEDS: BLOOD SUGAR DIAGNOSTIC 1 EACH STRIP IN SCH ×6 (00:40→23:11)
[2021-02-10] MEDS: INSULIN REGULAR, HUMAN 100 UNIT/ML 3 ML VIAL SQ PRN ×4 (00:42→23:12)
[2021-02-10] MEDS: ALBUTEROL FS 2.5 MG/3 ML VIAL.NEB NEB SCH ×4 (02:06→19:54)
[2021-02-10 04:00] VITALS: BP 105/71
--- NOTE | 2021-02-10 04:00 | NUR ---
RN NOTES PATIENT REMAINS IN NO ACUTE RESPIRATORY DISTRESS AT THIS TIME, NO CHANGES TO CONDITION/STATUS. AM PATIENT CARE DONE. COLLECTOR OF PORT WELL AWARE. WILL CONTINUE TO MONITOR AND REASSESS FOR ANY CHANGES THROUGHOUT THE SHIFT
--- NOTE | 2021-02-10 04:05 | NUR ---
RN NOTES ENDORSEMENT REPORT FOR LUKE GIVEN TO ARMIDA BOURGEOIS. IUSS MASTER ANALYST MADE AWARE
[2021-02-10] MEDS: CEFEPIME 2 GM in IV D5W 100 ML IV SCH (04:27)
[2021-02-10] MEDS: METRONIDAZOLE 500MG/ NS 100ML 500 MG in PREMIX 1 EA IV SCH (05:00)
[2021-02-10 05:59] LABS: BASOPHILS % (AUTO) 0.1 % (0.0-2.0); EOSINOPHILS % (AUTO) 4.4 % (0.0-6.0); HEMATOCRIT 30 % (39-51); HEMOGLOBIN 9.2 g/dL (13.5-17.5); LYMPHOCYTES # (AUTO) 0.8 K/uL (0.8-4.8); LYMPHOCYTES % (AUTO) 3.5 % (20.0-44.0); MEAN CORPUSCULAR HGB CONC 31 g/dl (31.0-36.0); MEAN CORPUSCULAR VOLUME 100 fL (80-96); MONOCYTES # (AUTO) 1.2 K/uL (0.1-1.30); MONOCYTES % (AUTO) 5.4 % (2.0-12.0); NEUTROPHILS % (AUTO) 86.6 % (43.0-81.0); PLATELET COUNT (AUTO) 222 K/uL (150-450); RED BLOOD CELL COUNT(AUTO) 2.96 MIL/uL (4.5-6.0)
[2021-02-10 06:07] LABS: CALCIUM, SERUM 8.9 mg/dL (8.5-10.1); CREATININE 4.5 mg/dL (0.6-1.3); POTASSIUM 4.7 mmol/L (3.5-5.1)
--- NOTE | 2021-02-10 06:21 | NUR ---
INTERVENTIONAL RADIOLOGY RN NOTES AWAKE & NON VERBAL. RESPONSIVE TO TACTILE STIMULI. NOT IN ANY DISTRESS. NO SOB NOTED. NO S/SX OF ANY PAIN OR DISCOMFORT AT THIS TIME. ON TELE ST @ 111 WITH IV-HL PATENT & INTACT. WITH GTF INFUSING WELL. AM CARE DONE. MONITORED ACCORDINGLY. CALL LIGHT WITHIN REACH. BED IN LOWEST POSITION. SR UP X 3 WITH BED ALARM ON FOR SAFETY. WILL ENDORSE TO NEXT SHIFT.
--- NOTE | 2021-02-10 08:05 | NUR ---
RN OPENING NOTES RECEIVED PATIENT IN BED. ASLEEP. PATIENT ON TRACH SATURATING WELL AT THIS TIME. NO S/S OF PAIN SUCH FACIAL GRIMACING, MOANING OR GUARDING. HD PATIENT. G-TUBE RUNNING NEPHRO @ 40 MLS/HR. SIERRA MIDLINE AND LEFT CW HD CATH INTACT AND IN PLACE, SL. SAFETY PRECAUTIONS IN PLACE; BED IN LOW POSITION AND LOCKED, RAILS UP X2, CALL LIGHT WITHIN REACH. WILL CONTINUE TO MONITOR PATIENT.
[2021-02-10] MEDS: PANTOPRAZOLE 40 MG/PACK PACK GT SCH (09:04)
[2021-02-10] MEDS: LEVETIRACETAM SOL (5 ML) 100 MG/ML UDC GT SCH (09:04)
[2021-02-10] MEDS: VIT B CMPLX 3/FA/VIT C/BIOTIN 1 TAB TABLET GT SCH (09:04)
[2021-02-10 10:38] VITALS: BP 112/69
[2021-02-10] MEDS: MEROPENEM 500 MG in IV NS 0.9% 50 ML IV SCH ×2 (12:16→23:00)
[2021-02-10 13:15] VITALS: BP 112/69
[2021-02-10 16:53] VITALS: BP 102/69
--- NOTE | 2021-02-10 19:26 | NUR ---
RN CLOSING NOTES PATIENT REMAINS IN BED. ASLEEP. PATIENT ON TRACH SATURATING WELL AT THIS TIME. NO S/S OF PAIN SUCH FACIAL GRIMACING, MOANING OR GUARDING. HD PATIENT. G-TUBE RUNNING NEPHRO @ 40 MLS/HR. SIERRA MIDLINE AND LEFT CW HD CATH INTACT AND IN PLACE, SL. ALL NEEDS ATTENDED THROUGHOUT THE DAY. SAFETY PRECAUTIONS IN PLACE; BED IN LOW POSITION AND LOCKED, RAILS UP X2, CALL LIGHT WITHIN REACH. ENDORSED TO APPLICATION DEVELOPER MANAGER NURSE FOR LUKE.
--- NOTE | 2021-02-10 19:30 | NUR ---
RN OPENING NOTES: RECEIVED NON VERBAL PT IN BED SLEEPING COMFORTABLY. PATIENT IN NO S/SX OF ACUTE DISTRESS AT THIS TIME. NO SOB NOTED. PATIENT'S BREATHING IS EVEN AND UNLABORED. PATIENT IS ON 5L OF OXYGEN VIA T-PIECE TOLERATING WELL. PATIENT ON MS STATUS. PT HAS G TUBE CLOGGED AND NON FLUSHING AT THE TIME OF RECEIVED. TAB MACHINE OPERATOR MADE AWARE. RN PROVIDED DECLOGGING MEASURES ABLE TO DE-CLOGGED AND FLUSH AND MAINTAIN PATENCY; G TUBE SITE NOTED TO BE CLEAN DRY AND INTACT; NO RESIDUAL NOTED; CONNECTED TO GTUBE FEEDING OF NEPRO @40CC/HR;TOLERATES WELL. NOTED IV SITE ON R UA MIDLINE PATENT, INTACT AND FLUSHING WELL; NO S/S OF INFECTION OR INFILTRATION. PT ALSO HAS ; CW HD CATH SECURED AND INTACT NO SIGNS OF INFECTION. SAFETY MEASURES HAVE BEEN PROVIDED AND IMPLEMENTED. PATIENT BED ALARM IS ON. HEAD OF BED ELEVATED. BED IS LOCKED, IN LOWEST POSITION AND SIDE RAILS UP. CALL LIGHT WITHIN REACH OF THE PATIENT. APPLICABLE ISOLATION PRECAUTIONS IN PLACE. WILL CONTINUE TO MONITOR AND REASSESS FOR ANY CHANGES AND WILL CARRY OUT ANY ONGOING AND ACTIVE MD ORDER.
[2021-02-10 20:00] VITALS: BP 115/76
[2021-02-10] MEDS ORDERED: CEFEPIME 2 GM in IV D5W 100 ML IV SCH (21:00)
--- NOTE | 2021-02-10 23:00 | NUR ---
RN NOTES NO CHANGE IN PATIENT CONDITION AT THIS TIME PATIENT VITALS STABLE, NO SIGNS OF ACUTE RESPIRATORY DISTRESS. CONTINUOUS WELD PIPE MILL SUPERVISOR MADE AWARE. WILL CONTINUE TO MONITOR AND REASSESS FOR ANY CHANGES THROUGHOUT THE SHIFT.
[2021-02-10] MEDS: INSULIN GLARGINE, 100 UNIT/ML CARTRIDGE SQ SCH (23:11)
[2021-02-11] MEDS: ALBUTEROL FS 2.5 MG/3 ML VIAL.NEB NEB SCH ×4 (01:29→19:59)
[2021-02-11 04:00] VITALS: BP 95/47
--- NOTE | 2021-02-11 04:00 | NUR ---
RN NOTES PATIENT REMAINS IN NO ACUTE RESPIRATORY DISTRESS AT THIS TIME, NO CHANGES TO CONDITION/STATUS. AM PATIENT CARE DONE. TUFTING MACHINE OPERATOR SINGLE NEEDLE WELL AWARE. WILL CONTINUE TO MONITOR AND REASSESS FOR ANY CHANGES THROUGHOUT THE SHIFT
[2021-02-11] MEDS: NEPRO 1,000 ML BOTTLE GT SCH (04:11)
[2021-02-11] MEDS: BLOOD SUGAR DIAGNOSTIC 1 EACH STRIP IN SCH ×3 (05:29→17:33)
[2021-02-11] MEDS: INSULIN REGULAR, HUMAN 100 UNIT/ML 3 ML VIAL SQ PRN ×3 (05:32→17:03)
--- NOTE | 2021-02-11 06:56 | NUR ---
RN CLOSING NOTE: PATIENT REMAINS IN ROOM IN NO SIGNS OF RESPIRATORY DISTRESS, PATIENT STILL ON 5L OF 02 VIA T-PIECE ;TOLERATING WELL SATURATING @ >95% SP02. SAFETY MEASURES IMPLEMENTED, BED IN LOWEST POSITION, LOCKED, SIDE RAILS UP, CALL LIGHT WITHIN REACH. ALL NEEDS AND ORDERS ADDRESSED DURING THE SHIFT. IV ACCESS MAINTAINED INTACT, SECURED AND FLUSHING WELL. ALL DUE MEDS GIVEN ORDERED & SCHEDULED ; PATIENT TOLERATED WELL. PATIENT KEPT CLEAN AND COMFORTABLE WITHIN THE SHIFT. PATIENT ENDORSED TO INCOMING SHIFT RN WITH STABLE VITAL SIGN AND FOR CONTINUITY OF CARE.
[2021-02-11 07:02] LABS: BASOPHILS # (AUTO) 0.1 K/uL (0.0-0.2); BASOPHILS % (AUTO) 0.4 % (0.0-2.0); EOSINOPHILS % (AUTO) 4.5 % (0.0-6.0); HEMATOCRIT 31 % (39-51); HEMOGLOBIN 9.7 g/dL (13.5-17.5); LYMPHOCYTES # (AUTO) 0.9 K/uL (0.8-4.8); LYMPHOCYTES % (AUTO) 4.2 % (20.0-44.0); MEAN CORPUSCULAR HGB CONC 32 g/dl (31.0-36.0); MEAN CORPUSCULAR VOLUME 100 fL (80-96); MONOCYTES # (AUTO) 1.1 K/uL (0.1-1.30); NEUTROPHILS # (AUTO) 19.5 K/uL (1.8-8.9); NEUTROPHILS % (AUTO) 85.9 % (43.0-81.0); PLATELET COUNT (AUTO) 193 K/uL (150-450); RED BLOOD CELL COUNT(AUTO) 3.08 MIL/uL (4.5-6.0); WHITE BLOOD COUNT (AUTO) 22.7 K/uL (4.3-11.0)
--- NOTE | 2021-02-11 07:15 | NUR ---
RN OPENING NOTE: PATIENT REMAINS IN ROOM IN NO SIGNS OF RESPIRATORY DISTRESS, PATIENT STILL ON 5L OF 02 VIA T-PIECE ;TOLERATING WELL SATURATING @ >95% SP02. SAFETY MEASURES IMPLEMENTED, BED IN LOWEST POSITION, LOCKED, SIDE RAILS UP, CALL LIGHT WITHIN REACH. IV ACCESS INTACT, SECURED AND FLUSHING WELL. CALL LIGHT WITHIN REACH AND ANSWERED PROPMTLY.
[2021-02-11] MEDS: PANTOPRAZOLE 40 MG/PACK PACK GT SCH (08:44)
[2021-02-11] MEDS: LEVETIRACETAM SOL (5 ML) 100 MG/ML UDC GT SCH (08:44)
[2021-02-11] MEDS: VIT B CMPLX 3/FA/VIT C/BIOTIN 1 TAB TABLET GT SCH (08:44)
[2021-02-11] MEDS: MEROPENEM 500 MG in IV NS 0.9% 50 ML IV SCH (11:02)
[2021-02-11 12:00] VITALS: BP 83/58
--- NOTE | 2021-02-11 19:25 | NUR ---
RN OPENING NOTES: RECEIVED NON-VERBAL PT IN BED SLEEPING COMFORTABLY. PATIENT IN NO S/SX OF ACUTE DISTRESS AT THIS TIME. NO SOB NOTED. PATIENT'S BREATHING IS EVEN AND UNLABORED. PATIENT IS ON 5L OF OXYGEN VIA T-PIECE TOLERATING WELL. PATIENT ON MS STATUS. PT HAS G TUBE FLUSHING AND PATENT; SITE CLEAN DRY AND INTACT; NO RESIDUAL NOTED; CONNECTED TO GTUBE FEEDING OF NEPRO @40CC/HR;TOLERATES WELL. NOTED IV SITE ON R UA MIDLINE PATENT, INTACT AND FLUSHING WELL; NO S/S OF INFECTION OR INFILTRATION. PT ALSO HAS L CW HD CATH SECURED AND INTACT NO SIGNS OF INFECTION. SAFETY MEASURES HAVE BEEN PROVIDED AND IMPLEMENTED. PATIENT BED ALARM IS ON. HEAD OF BED ELEVATED. BED IS LOCKED, IN LOWEST POSITION AND SIDE RAILS UP. CALL LIGHT WITHIN REACH OF THE PATIENT. APPLICABLE ISOLATION PRECAUTIONS IN PLACE. WILL CONTINUE TO MONITOR AND REASSESS FOR ANY CHANGES AND WILL CARRY OUT ANY ONGOING AND ACTIVE MD ORDER.
[2021-02-11 20:00] VITALS: BP 90/62
--- NOTE | 2021-02-11 20:00 | NUR ---
RN NOTES NOTED PT TO HAVE MODERATE AMOUNT OF SECRETIONS; AUSCULTATION DONE AND PROVIDED SUCTIONING AND REPOSITIONING. PT TOLERATED WELL. WILL CONTINUE TO PROVIDE REGULAR TURNING /REPOSITIONING AND SUCTIONING MEASURES. FISH TRAPPER WELL AWARE. WILL CONTINUE TO ASSESS AND MONITOR THROUGHOUT THE SHIFT.
[2021-02-11] MEDS: INSULIN GLARGINE, 100 UNIT/ML CARTRIDGE SQ SCH (22:01)
--- NOTE | 2021-02-11 22:02 | NUR ---
RN NOTES ACCU CHECK DONE FOR 0 PRIOR FOR LANTUS OF 9UNITS TO BE GIVEN ; RESULT IS @174MG/DL. LANTUS GIVEN. DUPLICATING MACHINE OPERATOR MADE WELL AWARE.
--- NOTE | 2021-02-11 23:00 | NUR ---
RN NOTES NO CHANGE IN PATIENT CONDITION AT THIS TIME PATIENT VITALS STABLE, NO SIGNS OF ACUTE RESPIRATORY DISTRESS. INTERNAL AUDIT DIRECTOR MADE AWARE. WILL CONTINUE TO MONITOR AND REASSESS FOR ANY CHANGES THROUGHOUT THE SHIFT.
[2021-02-12] MEDS: MEROPENEM 500 MG in IV NS 0.9% 50 ML IV SCH ×3 (00:21→23:14)
[2021-02-12] MEDS: BLOOD SUGAR DIAGNOSTIC 1 EACH STRIP IN SCH ×5 (00:36→23:13)
[2021-02-12] MEDS: INSULIN REGULAR, HUMAN 100 UNIT/ML 3 ML VIAL SQ PRN ×4 (00:38→23:30)
[2021-02-12] MEDS: ALBUTEROL FS 2.5 MG/3 ML VIAL.NEB NEB SCH ×4 (01:42→20:03)
[2021-02-12 04:00] VITALS: BP 102/71
--- NOTE | 2021-02-12 04:00 | NUR ---
RN NOTES PATIENT REMAINS IN NO ACUTE RESPIRATORY DISTRESS AT THIS TIME, NO CHANGES TO CONDITION/STATUS. AM PATIENT CARE DONE. BRIM BUSTER WELL AWARE. WILL CONTINUE TO MONITOR AND REASSESS FOR ANY CHANGES THROUGHOUT THE SHIFT
[2021-02-12 06:35] LABS: BASOPHILS # (AUTO) 0.1 K/uL (0.0-0.2); BASOPHILS % (AUTO) 0.3 % (0.0-2.0); EOSINOPHILS % (AUTO) 4.7 % (0.0-6.0); HEMATOCRIT 36 % (39-51); HEMOGLOBIN 11.3 g/dL (13.5-17.5); LYMPHOCYTES % (AUTO) 4.6 % (20.0-44.0); MEAN CORPUSCULAR HGB CONC 32 g/dl (31.0-36.0); MEAN CORPUSCULAR VOLUME 100 fL (80-96); MONOCYTES # (AUTO) 1.6 K/uL (0.1-1.30); MONOCYTES % (AUTO) 7.3 % (2.0-12.0); NEUTROPHILS # (AUTO) 17.7 K/uL (1.8-8.9); NEUTROPHILS % (AUTO) 83.1 % (43.0-81.0); PLATELET COUNT (AUTO) 194 K/uL (150-450); RED BLOOD CELL COUNT(AUTO) 3.57 MIL/uL (4.5-6.0); WHITE BLOOD COUNT (AUTO) 21.3 K/uL (4.3-11.0)
--- NOTE | 2021-02-12 07:25 | NUR ---
RN OPENING NOTE RECEIVED PATIENT IN BED. A/O X1. NON VERBAL. ON T-PIECE 5 LPM, NO SOB NOTED. NO S/S OF RESPIRATORY DISTRESS. IV ACCESS ON SIERRA MIDLINE #18, INTACT AND PATENT. LCW HD CATH. GTF NEPRO CURRENTLY RUNNING AT 40 ML/HR. SAFETY MEASURES MAINTAINED. BED IN LOWEST POSITION, BRAKES LOCKED SIDE RAIL UP X2 . CALL LIGHT WITHIN REACH. WILL CONTINUE PLAN OF CARE.
[2021-02-12 08:00] LABS: CALCIUM, SERUM 9.4 mg/dL (8.5-10.1); CREATININE 4.3 mg/dL (0.6-1.3); POTASSIUM 4.7 mmol/L (3.5-5.1)
--- NOTE | 2021-02-12 09:00 | NUR ---
RN NOTE LAB CALLED REGARDING A CRITICAL VALUE OF BUN, 87. MELLISA CASTILLO NP IS MADE AWARE. NO NEW ORDERS.
[2021-02-12] MEDS: LEVETIRACETAM SOL (5 ML) 100 MG/ML UDC GT SCH (09:03)
[2021-02-12] MEDS: PANTOPRAZOLE 40 MG/PACK PACK GT SCH (09:03)
[2021-02-12] MEDS: VIT B CMPLX 3/FA/VIT C/BIOTIN 1 TAB TABLET GT SCH (09:04)
[2021-02-12] MEDS: NEPRO 1,000 ML BOTTLE GT SCH (09:12)
--- NOTE | 2021-02-12 11:34 | NUR ---
RN NOTE TELEPHONE CONSENT FOR HEMODIALYSIS FROM PT'S SISTER, CANDICE CLEVE. ARMIDA ARMSTRONG SIGNED A WITNESS.
[2021-02-12 12:00] VITALS: BP 90/54
--- NOTE | 2021-02-12 18:25 | NUR ---
RN CLOSING NOTE PATIENT IN BED. NON VERBAL. ON T-PIECE 5 LPM, NO SOB NOTED. NO S/S OF RESPIRATORY DISTRESS. IV ACCESS ON [place] #18, INTACT AND PATENT. LCW HD CATH C/D/I. GTF NEPRO CURRENTLY RUNNING AT 40 ML/HR, 5 CC RESIDUAL, TOLERATING WELL. ROUTINE MEDS WERE GIVEN ORDERED. INSULIN GIVEN PER PROTOCOL. SAFETY MEASURES MAINTAINED. BED IN LOWEST POSITION, BRAKES LOCKED SIDE RAIL UP X2 . CALL LIGHT WITHIN REACH. WILL ENDORSE CONTINUITY OF CARE TO ONCOMING SHIFT.
--- NOTE | 2021-02-12 19:50 | NUR ---
MS1 RN NOTES RECEIVED ON BED NON VERBAL,OBTUNDED,ON T-PIECE AT 5L TOLERATED,O2 SAT WITH IN NORMAL LIMITS,WITH RIGHT UPPER MIDLINE FOR MEDS,LEFT CHEST WALL HD CATH FOR HEMODIALYSIS TREATMENT.WITH GT FEEDING OF NEPRO AT 40ML/HR RATE,TOLERATED WELL.NO RESIDUAL VOLUME NOTED.HOB ELEVATED FOR ASPIRATION PRECAUTION.WILL REPOSITION Q 2 HOURS PER PROTOCOL.WILL CONTINUE TO MONITOR STATUS.
[2021-02-12 20:00] VITALS: BP 106/70
--- NOTE | 2021-02-12 21:45 | NUR ---
MS1 RN NOTES ACCU-CHECK BLOOD SUGAR CHECK 195,DUE LANRinaUS 9MUNIOTS GIVEN SQ ORDERED.GT FEEDING IN PROGRESS. Addendum: 02/12/21 at 2209 by KIERSTEN LOOMIS RN LANT[facility] 9 UNITS GIVEN SCHEDULED.
[2021-02-12] MEDS: INSULIN GLARGINE, 100 UNIT/ML CARTRIDGE SQ SCH (21:48)
[2021-02-13] MEDS: ALBUTEROL FS 2.5 MG/3 ML VIAL.NEB NEB SCH ×4 (01:53→20:11)
[2021-02-13 04:00] VITALS: BP 113/73
--- NOTE | 2021-02-13 04:30 | NUR ---
TELE1 RN NOTES MORNING CARE RENDERED WITH RULA ABERNATHY,TOLERATED WELL.REPOSITIONED.
--- NOTE | 2021-02-13 05:00 | NUR ---
TELE1 RN NOTES ACCU-CHECK BLOOD SUGAR CHECK 167,COVERED WITH JHUMULIN R 3 UNITS PER SLIDING SCALE.
[2021-02-13] MEDS: INSULIN REGULAR, HUMAN 100 UNIT/ML 3 ML VIAL SQ PRN ×2 (05:21→17:14)
[2021-02-13] MEDS: BLOOD SUGAR DIAGNOSTIC 1 EACH STRIP IN SCH ×3 (05:21→17:02)
--- NOTE | 2021-02-13 06:42 | NUR ---
DOCUMENT MANAGER NOTES NO SIGNIFICANT CHANGE IN STATUS.NO EPISODE OF SOB,REPOSITION PER PROTOCOLWILL ENDORSE TO DAY NURSE FOR LUKE.
--- NOTE | 2021-02-13 07:53 | NUR ---
MS RN OPENING NOTE RECEIVED PATIENT IN BED, RESTING. NON VERBAL, OBTUNDED. ON T-PIECE 5 LPM, NO SOB NOTED. NO DISTRESS OR DISCOMFORT NOTED. IV ACCESS TO SIERRA MIDLINE #18, INTACT AND PATENT. LEFT CHEST WALL HD CATH NOTED. GTUBE RUNNING NEPRO @ 40ML/HR. PATIENT IS ANURIC. SAFETY MEASURES IN PLACE. CALL LIGHT WITHIN REACH. WILL CONTINUE TO MONITOR.
[2021-02-13] MEDS: VIT B CMPLX 3/FA/VIT C/BIOTIN 1 TAB TABLET GT SCH (08:36)
[2021-02-13] MEDS: PANTOPRAZOLE 40 MG/PACK PACK GT SCH (08:36)
[2021-02-13] MEDS: LEVETIRACETAM SOL (5 ML) 100 MG/ML UDC GT SCH (08:36)
[2021-02-13] MEDS: MEROPENEM 500 MG in IV NS 0.9% 50 ML IV SCH (11:26)
--- NOTE | 2021-02-13 11:27 | NUR ---
BP 87/42 HR 121. MD AWARE, CHARGE NURSE AWARE. NO ORDERS GIVEN.
[2021-02-13 12:04] VITALS: BP 87/42
[2021-02-13] MEDS: NEPRO 1,000 ML BOTTLE GT SCH (14:58)
--- NOTE | 2021-02-13 15:00 | NUR ---
MS RN NOTE G TUBE SITE APPEARS TO BE LEAKING. MD AWARE - ORDERS TO CONTINUE FEEDING AND ADMINISTER REGLAN 5MG Q8HR. DRESSING CHANGED AT G TUBE SITE - ORDERS NOTED AND CARRIED OUT. WILL CONTINUE TO MONITOR.
[2021-02-13] MEDS: METOCLOPRAMIDE HCL 10 MG/10 ML UDC PO SCH (16:24)
[2021-02-13] MEDS ORDERED: METOCLOPRAMIDE HCL 10 MG/10 ML UDC PO SCH (17:30)
--- NOTE | 2021-02-13 18:51 | NUR ---
MS RN CLOSING NOTE PATIENT CURRENTLY LYING IN BED, RESTING. NON VERBAL, OBTUNDED. ON T-PIECE 5 LPM, NO SOB NOTED. NO DISTRESS OR DISCOMFORT NOTED. IV ACCESS TO SIERRA MIDLINE #18, INTACT AND PATENT. LEFT CHEST WALL HD CATH NOTED. PATIENT APPEARS TO BE VERY DIAPHORETIC - MD AWARE. PATIENT RECEIVED DIALYSIS THIS SHIFT - NOTHING OUT, CLEANED ONLY. GTUBE RUNNING NEPRO @ 40ML/HR. PATIENT'S BLOOD PRESSURE HAS BEEN LOW THIS SHIFT - MD AND CHARGE NURSE AWARE. NO ORDERS GIVEN. PATIENT'S G TUBE SITE APPEARS TO BE LEAKING - MD AWARE - REGLAN PRESCRIBED Q8HR. PATIENT IS ANURIC. SAFETY MEASURES IN PLACE. CALL LIGHT WITHIN REACH. WILL ENDORSE TO GROUNDS CARETAKER NURSE FOR LUKE.
[2021-02-13 20:00] VITALS: BP 73/48
[2021-02-13] MEDS: INSULIN GLARGINE, 100 UNIT/ML CARTRIDGE SQ SCH (22:47)
[2021-02-14] MEDS: MEROPENEM 500 MG in IV NS 0.9% 50 ML IV SCH ×2 (00:01→12:30)
--- NOTE | 2021-02-14 00:27 | NUR ---
RN Notes Patient's blood sugar at 0027 at 199mg/dL.
[2021-02-14] MEDS: BLOOD SUGAR DIAGNOSTIC 1 EACH STRIP IN SCH ×4 (00:29→17:53)
[2021-02-14] MEDS: INSULIN REGULAR, HUMAN 100 UNIT/ML 3 ML VIAL SQ PRN ×2 (00:45→06:37)
[2021-02-14] MEDS: ALBUTEROL FS 2.5 MG/3 ML VIAL.NEB NEB SCH ×4 (01:47→19:48)
[2021-02-14] MEDS: METOCLOPRAMIDE HCL 10 MG/10 ML UDC PO SCH ×3 (05:13→21:58)
[2021-02-14 06:03] LABS: BASOPHILS # (AUTO) 0.1 K/uL (0.0-0.2); BASOPHILS % (AUTO) 0.7 % (0.0-2.0); EOSINOPHILS % (AUTO) 3.8 % (0.0-6.0); HEMATOCRIT 36 % (39-51); LYMPHOCYTES # (AUTO) 1.2 K/uL (0.8-4.8); LYMPHOCYTES % (AUTO) 7.2 % (20.0-44.0); MEAN CORPUSCULAR HGB CONC 30 g/dl (31.0-36.0); MEAN CORPUSCULAR VOLUME 106 fL (80-96); MONOCYTES # (AUTO) 1.9 K/uL (0.1-1.30); MONOCYTES % (AUTO) 11.3 % (2.0-12.0); NEUTROPHILS # (AUTO) 12.8 K/uL (1.8-8.9); PLATELET COUNT (AUTO) 145 K/uL (150-450); RED BLOOD CELL COUNT(AUTO) 3.43 MIL/uL (4.5-6.0); WHITE BLOOD COUNT (AUTO) 16.7 K/uL (4.3-11.0)
[2021-02-14 06:27] LABS: CALCIUM, SERUM 9.4 mg/dL (8.5-10.1); CREATININE 4.3 mg/dL (0.6-1.3); MAGNESIUM 2.9 mg/dL (1.8-2.4); PHOSPHORUS 4.9 mg/dL (2.5-4.9); POTASSIUM 4.7 mmol/L (3.5-5.1)
--- NOTE | 2021-02-14 06:38 | NUR ---
RN Notes Patient's blood sugar at 0625 was 141 mg/dL.
--- NOTE | 2021-02-14 06:38 | NUR ---
RN Closing Notes Patient's nonverbal and obtunded. Patient's in no respiratory distress. Patient has a right upper arm midline gauge #18, which is intact and patent. Patient has a g-tube feeding running nepro at 40mL/hour. Patient is in no acute distress at this time. Will endorse care to the day shift nurse.
[2021-02-14 08:05] VITALS: BP 89/60
[2021-02-14 08:41] LABS: EOSINOPHILS % (MANUAL) 2 % (0-4); LYMPHOCYTES % (MANUAL) 7 % (16-48); MONOCYTES % (MANUAL) 15 % (0-11.0); NEUTROPHILS % (MANUAL) 76 (42-76)
[2021-02-14] MEDS: VIT B CMPLX 3/FA/VIT C/BIOTIN 1 TAB TABLET GT SCH (09:12)
[2021-02-14] MEDS: PANTOPRAZOLE 40 MG/PACK PACK GT SCH (09:12)
[2021-02-14] MEDS: LEVETIRACETAM SOL (5 ML) 100 MG/ML UDC GT SCH (09:13)
[2021-02-14 12:16] VITALS: BP 90/62
--- NOTE | 2021-02-14 15:55 | NUR ---
RN Notes Patient g-tube intact flushing well, continue to monitor g-tube and keep open flow running at Nepro 40mL/hr , HOB raised, patient kept clean and dry during shift , repositioned for comfort and preventative measure q 2 hours, no SOB noted, Patient is nonverbal and obtunded. Patient has a right upper arm midline gauge #18 - intact , no distress noted and safety measures in place, bed locked low position, sister visited today and signed a DNR form witness by myself and RN plastic sheets finishing supervisor juve and placed in file, call light in reach, will continue to monitor.
[2021-02-14 20:00] VITALS: BP 95/62
--- NOTE | 2021-02-14 20:00 | NUR ---
RN OPENING NOTES PATIENT IS NON-VERBAL AND OBTUNDED, APPEAR COMFORTABLE AND SLEEPING. PT HAS TRACH ON 5 L OF OXYGEN, NO S/S OF DISTRESS OR SOB NOTED, SPO2 97%. RIGHT UPPER MIDLINE #18G INTACT AND FLUSHING WELL, SALINE LOCKED, LEFT CHEST WALL HD CATH INTACT. PATIENT G-TUBE INTACT AND FLUSHING WELL, 0 ML RESIDUAL, RUNNING NEPRO @ 40 ML/HR. SAFETY MEASURES IN PLACE, HOB ELEVATED, BED LOCKED IN LOWEST POSITION, BED ALARM ON. WILL CONTINUE TO MONITOR
[2021-02-14] MEDS: INSULIN GLARGINE, 100 UNIT/ML CARTRIDGE SQ SCH (22:44)
[2021-02-15] MEDS ORDERED: MEROPENEM 500 MG VIAL IV ONE (00:10)
[2021-02-15] MEDS: BLOOD SUGAR DIAGNOSTIC 1 EACH STRIP IN SCH ×4 (00:25→17:30)
[2021-02-15] MEDS: MEROPENEM 500 MG in IV NS 0.9% 50 ML IV SCH ×2 (00:26→12:47)
[2021-02-15] MEDS: INSULIN REGULAR, HUMAN 100 UNIT/ML 3 ML VIAL SQ PRN ×3 (00:54→17:31)
[2021-02-15] MEDS: ALBUTEROL FS 2.5 MG/3 ML VIAL.NEB NEB SCH ×5 (01:38→19:46)
[2021-02-15 04:00] VITALS: BP 100/65
[2021-02-15] MEDS: METOCLOPRAMIDE HCL 10 MG/10 ML UDC PO SCH ×3 (05:46→21:36)
[2021-02-15 06:32] LABS: BASOPHILS # (AUTO) 0.1 K/uL (0.0-0.2); BASOPHILS % (AUTO) 0.7 % (0.0-2.0); HEMATOCRIT 32 % (39-51); HEMOGLOBIN 9.9 g/dL (13.5-17.5); LYMPHOCYTES # (AUTO) 1.1 K/uL (0.8-4.8); LYMPHOCYTES % (AUTO) 6.9 % (20.0-44.0); MEAN CORPUSCULAR HGB CONC 31 g/dl (31.0-36.0); MEAN CORPUSCULAR VOLUME 103 fL (80-96); MONOCYTES # (AUTO) 1.4 K/uL (0.1-1.30); MONOCYTES % (AUTO) 8.6 % (2.0-12.0); NEUTROPHILS # (AUTO) 13.2 K/uL (1.8-8.9); NEUTROPHILS % (AUTO) 79.8 % (43.0-81.0); PLATELET COUNT (AUTO) 170 K/uL (150-450); RED BLOOD CELL COUNT(AUTO) 3.05 MIL/uL (4.5-6.0); WHITE BLOOD COUNT (AUTO) 16.6 K/uL (4.3-11.0)
[2021-02-15] MEDS: NEPRO 1,000 ML BOTTLE GT SCH (06:34)
--- NOTE | 2021-02-15 07:00 | NUR ---
MS RN CLOSING NOTES PATIENT IS NON-VERBAL AND OBTUNDED, APPEARS COMFORTABLE AND SLEEPING. PT HAS TRACH ON 5 L OF OXYGEN, NO S/S OF DISTRESS OR SOB NOTED, SPO2 100%. RIGHT UPPER MIDLINE #18G INTACT AND FLUSHING WELL, SALINE LOCKED, LEFT CHEST WALL HD CATH INTACT. PATIENT G-TUBE INTACT AND RUNNING NEPRO @ 40 ML/HR. MEDICATIONS GIVEN ORDERED, PT NEEDS MET THROUGHOUT SHIFT. SAFETY MEASURES IN PLACE, HOB ELEVATED, BED LOCKED IN LOWEST POSITION, BED ALARM ON. WILL ENDORSE TO DAY SHIFT NURSE FOR CONTINUITY OF CARE
[2021-02-15 07:08] LABS: CALCIUM, SERUM 9.2 mg/dL (8.5-10.1); CREATININE 5.3 mg/dL (0.6-1.3); POTASSIUM 5.1 mmol/L (3.5-5.1)
--- NOTE | 2021-02-15 07:30 | NUR ---
RN OPENING NOTES Patient is non verbal . Patient is on trach and 5liters with 02 sat of 98%. No c.o pain or discomfort. Patient is on g tube evelin well. No c/o pain or discomfort. Patient noted with left chest wall hd cath intact. Right upper arm midline noted saline lock. HOB kept elevated. Call light with in reach.
[2021-02-15] MEDS: PANTOPRAZOLE 40 MG/PACK PACK GT SCH (08:25)
[2021-02-15] MEDS: LEVETIRACETAM SOL (5 ML) 100 MG/ML UDC GT SCH (08:25)
[2021-02-15] MEDS: VIT B CMPLX 3/FA/VIT C/BIOTIN 1 TAB TABLET GT SCH (08:25)
--- NOTE | 2021-02-15 08:45 | NUR ---
DR. GARRIDO SEEN AND EVALUATED PATIENT RELAYED PT. NEXT OF KEEN WISHES AND NEW POLST.DNR PER .
--- NOTE | 2021-02-15 09:00 | NUR ---
Received order from Dr Rosas to start patient on Normal saline at 100 cc/hour. MD aware that patient is on dialysis.
[2021-02-15] MEDS: IV NS 0.9% 1,000 ML IV PRN ×2 (10:08→21:50)
[2021-02-15 12:00] VITALS: BP 98/65
--- NOTE | 2021-02-15 18:47 | NUR ---
RN CLOSING NOTES Patient is non verbal . Patient is on trach T PIECE on 5 liters with 02 sat of 100%. No c.o pain or discomfort. Patient is on g tube evelin well. No c/o pain or discomfort. Patient noted with left chest wall hd cath intact. Right upper arm midline noted with IV fluids running at 100 cc/hour. Received call from dialysis nurse that dialysis will be done on next shift. Will endorse to next shift to follow up. Patient turned and repositioned q2h and prn. HOB kept elevated. Call light with in reach.
--- NOTE | 2021-02-15 19:30 | NUR ---
RN NOTE RECEIVED PATIENT IN BED. PATIENT IS OBTUNDED. ON OXYGEN 5L/MIN VIA T-PIECE. RESPIRATIONS ARE EVEN AND UNLABORED. NO S/S SOB NOTED. NO S/S PAIN NOTED. HR IS ELEVATED 110 ON CONTINUOS PULSE OX MACHINE .IV ACCESS IN SIERRA MIDLINE RUNNING NS@100ML/HR. PATIENT IS SCHEDULED TO GET HD TONIGHT, AWAITING HD RN. BED IS LOW AND LOCKED, HOB ELEVATED IN HIGH FOWLERS, SIDE RAILS UP X3, WILL CONTINUE TO MONITOR THROUGHOUT SHIFT.
[2021-02-15 20:00] VITALS: BP 111/72
--- NOTE | 2021-02-15 20:48 | NUR ---
RN NOTE HD RN AT BEDSIDE.
[2021-02-15] MEDS: INSULIN GLARGINE, 100 UNIT/ML CARTRIDGE SQ SCH (21:43)
[2021-02-16] MEDS: BLOOD SUGAR DIAGNOSTIC 1 EACH STRIP IN SCH ×5 (00:04→23:22)
[2021-02-16] MEDS: MEROPENEM 500 MG in IV NS 0.9% 50 ML IV SCH ×3 (00:10→23:22)
[2021-02-16] MEDS: INSULIN REGULAR, HUMAN 100 UNIT/ML 3 ML VIAL SQ PRN ×5 (00:11→23:24)
[2021-02-16] MEDS: ALBUTEROL FS 2.5 MG/3 ML VIAL.NEB NEB SCH ×4 (02:03→20:05)
[2021-02-16 04:00] VITALS: BP 101/62
[2021-02-16] MEDS: METOCLOPRAMIDE HCL 10 MG/10 ML UDC PO SCH ×3 (04:55→21:04)
[2021-02-16 06:31] LABS: BASOPHILS # (AUTO) 0.1 K/uL (0.0-0.2); BASOPHILS % (AUTO) 0.7 % (0.0-2.0); EOSINOPHILS % (AUTO) 1.9 % (0.0-6.0); HEMATOCRIT 26 % (39-51); HEMOGLOBIN 8.1 g/dL (13.5-17.5); LYMPHOCYTES # (AUTO) 0.8 K/uL (0.8-4.8); LYMPHOCYTES % (AUTO) 4.6 % (20.0-44.0); MEAN CORPUSCULAR HGB CONC 31 g/dl (31.0-36.0); MEAN CORPUSCULAR VOLUME 105 fL (80-96); MONOCYTES # (AUTO) 1.3 K/uL (0.1-1.30); MONOCYTES % (AUTO) 7.6 % (2.0-12.0); NEUTROPHILS # (AUTO) 14.5 K/uL (1.8-8.9); NEUTROPHILS % (AUTO) 85.2 % (43.0-81.0); PLATELET COUNT (AUTO) 164 K/uL (150-450); RED BLOOD CELL COUNT(AUTO) 2.46 MIL/uL (4.5-6.0); WHITE BLOOD COUNT (AUTO) 17.1 K/uL (4.3-11.0)
--- NOTE | 2021-02-16 06:31 | NUR ---
RN NOTE PATIENT RESTING IN BED.NONVERBAL, OPENS EYES. REMAINS ON OXYGEN 5L/MIN VIA T-PIECE. PATIENT HAS A WET PRODUCTIVE COUGH, SUCTIONED THROUGHOUT NIGHT. NO PAIN. HR CONTINUES TO BE ELEVATED ABOVE 100.IV IN SIERRA MIDLINE RUNNING NS@100ML/HR. PATIENT DIALYZED, CLEANING ONLY. BED REMAINS LOW AND LOCKED, HOB ELEVATED IN HIGH FOWLERS, SIDE RAILS UP X3, WILL ENDORSE TO ONCOMING SHIFT.
[2021-02-16] MEDS: IV NS 0.9% 1,000 ML IV PRN ×2 (06:41→19:12)
[2021-02-16 06:53] LABS: CALCIUM, SERUM 8.5 mg/dL (8.5-10.1); CREATININE 3.6 mg/dL (0.6-1.3); POTASSIUM 5.2 mmol/L (3.5-5.1)
--- NOTE | 2021-02-16 07:30 | NUR ---
RN OPENING NOTES Patient is non verbal . Patient is on trach and 5liters with 02 sat of 100 %. No c.o pain or discomfort. Patient is on g tube evelin well. No c/o pain or discomfort. Patient noted with left chest wall hd cath intact. Right upper arm midline noted saline lock. HOB kept elevated. Call light with in reach.
[2021-02-16] MEDS: PANTOPRAZOLE 40 MG/PACK PACK GT SCH (08:45)
[2021-02-16] MEDS: VIT B CMPLX 3/FA/VIT C/BIOTIN 1 TAB TABLET GT SCH (08:45)
[2021-02-16] MEDS: LEVETIRACETAM SOL (5 ML) 100 MG/ML UDC GT SCH (09:18)
--- NOTE | 2021-02-16 11:00 | NUR ---
updated MD regarding patient and informed regarding Hgb trends levels for past few days/.
[2021-02-16 12:00] VITALS: BP 98/50
[2021-02-16] MEDS: NEPRO 1,000 ML BOTTLE GT SCH ×2 (16:54→17:00)
--- NOTE | 2021-02-16 19:00 | NUR ---
RN NOTE RECEIVED PATIENT IN BED, OBTUNDED, IN NO S/SX OF ACUTE DISTRESS AT THIS TIME. ON TRACH TO COOL AEROSOL, SATURATION AT 100% ON 5LPM, HR IS 116. NOTED HD CATH AT L CHEST WALL, AND SIERRA MIDLINE, ALL HUBS PATENT AND FLUSHING WELL, NO S/S OF INFECTION, WITH NS INFUSING AT 100 ML/HR. NOTED GTUBE INTACT POSITIVE PLACEMENT NOTED, MINIMAL RESIDUAL NOTED, WITH TUBE FEEDING OF NEPRO AT 40 ML/HR. SAFETY MEASURES IMPLEMENTED. PATIENT BED ALARM IS ON. HEAD OF BED ELEVATED. BED IS LOCKED, IN LOWEST POSITION AND SIDE RAILS UP. CALL LIGHT WITHIN REACH OF THE PATIENT. WILL CONTINUE TO MONITOR AND REASSESS FOR ANY CHANGES.
--- NOTE | 2021-02-16 19:33 | NUR ---
RN CLOSING NOTES Patient is non verbal . Patient is on trach T PIECE on 5 liters with 02 sat of 99%. No c.o pain or discomfort. Patient is on g tube evelin well. No c/o pain or discomfort. Patient noted with left chest wall hd cath intact. Right upper arm midline noted with IV fluids running at 100 cc/hour. Patient turned and repositioned q2h and prn. HOB kept elevated. Call light with in reach.
[2021-02-16 20:00] VITALS: BP 95/61
[2021-02-16] MEDS: INSULIN GLARGINE, 100 UNIT/ML CARTRIDGE SQ SCH (23:24)
[2021-02-17] MEDS: ALBUTEROL FS 2.5 MG/3 ML VIAL.NEB NEB SCH ×4 (02:22→19:30)
[2021-02-17] MEDS: METOCLOPRAMIDE HCL 10 MG/10 ML UDC PO SCH ×3 (05:08→22:05)
[2021-02-17 05:48] LABS: BASOPHILS # (AUTO) 0.1 K/uL (0.0-0.2); BASOPHILS % (AUTO) 0.6 % (0.0-2.0); EOSINOPHILS % (AUTO) 2.7 % (0.0-6.0); HEMATOCRIT 23 % (39-51); HEMOGLOBIN 7.3 g/dL (13.5-17.5); LYMPHOCYTES # (AUTO) 0.7 K/uL (0.8-4.8); LYMPHOCYTES % (AUTO) 4.6 % (20.0-44.0); MEAN CORPUSCULAR HGB CONC 31 g/dl (31.0-36.0); MEAN CORPUSCULAR VOLUME 105 fL (80-96); MONOCYTES # (AUTO) 1.3 K/uL (0.1-1.30); NEUTROPHILS # (AUTO) 12.3 K/uL (1.8-8.9); NEUTROPHILS % (AUTO) 83.1 % (43.0-81.0); PLATELET COUNT (AUTO) 160 K/uL (150-450); RED BLOOD CELL COUNT(AUTO) 2.22 MIL/uL (4.5-6.0); WHITE BLOOD COUNT (AUTO) 14.8 K/uL (4.3-11.0)
[2021-02-17] MEDS: BLOOD SUGAR DIAGNOSTIC 1 EACH STRIP IN SCH ×4 (05:53→23:12)
[2021-02-17 05:56] LABS: CALCIUM, SERUM 8.4 mg/dL (8.5-10.1); CREATININE 4.3 mg/dL (0.6-1.3); POTASSIUM 4.8 mmol/L (3.5-5.1)
[2021-02-17] MEDS: IV NS 0.9% 1,000 ML IV PRN ×2 (05:58→16:42)
--- NOTE | 2021-02-17 07:49 | NUR ---
MS RN OPENING NOTES RECEIVED PATIENT IN BED, ASLEEP, OBTUNDED ON T PIECE 5 L SATURATING 100 % AT THIS TIME. NO S/S OF PAIN SUCH FACIAL GRIMACING, GUARDING OR MOANING NOTED. HAS A SIERRA MIDLINE RUNNING NS @ 100 MLS/HR. HD CATH @ L CHEST WALL PRESENT AND INTACT. G-TUBE IN PLACE RUNNING NEPHRO @ 40 MLS/HR. SAFETY PRECAUTIONS IN PLACE; BED IN LOW POSITION AND LOCKED, RAILS UP X2, CALL LIGTH WITHIN REACH. WILL CONTINUE TO MONITOR PATIENT.
--- NOTE | 2021-02-17 08:01 | NUR ---
MS RN NOTES PATIENT ABOUT TO START HD
[2021-02-17] MEDS: PANTOPRAZOLE 40 MG/PACK PACK GT SCH (08:13)
[2021-02-17] MEDS: VIT B CMPLX 3/FA/VIT C/BIOTIN 1 TAB TABLET GT SCH (08:13)
[2021-02-17] MEDS: LEVETIRACETAM SOL (5 ML) 100 MG/ML UDC GT SCH (08:13)
[2021-02-17 09:17] VITALS: BP 111/63
[2021-02-17] MEDS ORDERED: LIDOCAINE 1%-EPI 1:100,000 20 ML VIAL TP ONE (10:30)
[2021-02-17] MEDS: MEROPENEM 500 MG in IV NS 0.9% 50 ML IV SCH ×2 (11:34→23:13)
[2021-02-17] MEDS: INSULIN REGULAR, HUMAN 100 UNIT/ML 3 ML VIAL SQ PRN ×2 (11:44→18:08)
--- NOTE | 2021-02-17 18:50 | NUR ---
MS RN CLOSING NOTES PATIENT REMAINS IN BED, ASLEEP, OBTUNDED ON T PIECE 5 L SATURATING 100 % AT THIS TIME. NO S/S OF PAIN SUCH FACIAL GRIMACING, GUARDING OR MOANING DURING SHIFT. HAS A SIERRA MIDLINE RUNNING NS @ 100 MLS/HR. HD CATH WAS REMOVED TODAY BY DR. MITTAL. G-TUBE IN PLACE RUNNING NEPHRO @ 40 MLS/HR. ALL NEEDS ATTENDED DURING THE DAY. SAFETY PRECAUTIONS IN PLACE; BED IN LOW POSITION AND LOCKED, RAILS UP X2, CALL LIGTH WITHIN REACH. WILL ENDORSE TO ILLUMINATOR NURSE.
--- NOTE | 2021-02-17 19:00 | NUR ---
RN NOTE RECEIVED PATIENT IN BED, OBTUNDED, IN NO S/SX OF ACUTE DISTRESS AT THIS TIME. ON TRACH TO COOL AEROSOL, SATURATION AT 100% ON 5LPM 28% FIO2, HR IS 118. NOTED SIERRA MIDLINE, ALL HUBS PATENT AND FLUSHING WELL, NO S/S OF INFECTION, WITH NS INFUSING AT 100 ML/HR. NOTED GTUBE INTACT POSITIVE PLACEMENT NOTED, MINIMAL RESIDUAL NOTED, WITH TUBE FEEDING OF NEPRO AT 40 ML/HR. SAFETY MEASURES IMPLEMENTED. PATIENT BED ALARM IS ON. HEAD OF BED ELEVATED. BED IS LOCKED, IN LOWEST POSITION AND SIDE RAILS UP. CALL LIGHT WITHIN REACH OF THE PATIENT. WILL CONTINUE TO MONITOR AND REASSESS FOR ANY CHANGES.
[2021-02-17 20:00] VITALS: BP 90/59
[2021-02-17] MEDS: INSULIN GLARGINE, 100 UNIT/ML CARTRIDGE SQ SCH (23:15)
[2021-02-18] VITALS (12 sets, daily range): BP systolic 91–106; BP diastolic 60–76
[2021-02-18] MEDS: ALBUTEROL FS 2.5 MG/3 ML VIAL.NEB NEB SCH ×4 (02:21→19:37)
[2021-02-18] MEDS: IV NS 0.9% 1,000 ML IV PRN (03:24)
[2021-02-18] MEDS: METOCLOPRAMIDE HCL 10 MG/10 ML UDC PO SCH ×3 (05:45→21:53)
[2021-02-18] MEDS: BLOOD SUGAR DIAGNOSTIC 1 EACH STRIP IN SCH ×3 (05:47→17:22)
[2021-02-18] MEDS: INSULIN REGULAR, HUMAN 100 UNIT/ML 3 ML VIAL SQ PRN ×2 (05:48→12:16)
[2021-02-18] MEDS: NEPRO 1,000 ML BOTTLE GT SCH (06:00)
[2021-02-18 06:45] LABS: CALCIUM, SERUM 8.2 mg/dL (8.5-10.1); CREATININE 3.6 mg/dL (0.6-1.3); POTASSIUM 4.3 mmol/L (3.5-5.1)
--- NOTE | 2021-02-18 07:30 | NUR ---
RN AM NOTES PATIENT IN BED, OBTUNDED, NO S/SX OF ACUTE DISTRESS AT THIS TIME. ON TRACH TO COOL AEROSOL, SATURATION AT 100% ON 5LPM 28% FIO2, HR IS 119. NOTED SIERRA MIDLINE, ALL HUBS PATENT AND FLUSHING WELL, NO S/S OF INFECTION, WITH NS INFUSING AT 100 ML/HR. NOTED GTUBE INTACT POSITIVE PLACEMENT NOTED, 0 RESIDUAL. WITH TUBE FEEDING OF NEPRO AT 40 ML/HR. SAFETY MEASURES IMPLEMENTED. PATIENT BED ALARM IS ON. HEAD OF BED ELEVATED. BED IS LOCKED, IN LOWEST POSITION AND SIDE RAILS UP. CALL LIGHT WITHIN REACH OF THE PATIENT. WILL CONTINUE TO MONITOR AND REASSESS FOR ANY CHANGES.
[2021-02-18 07:54] LABS: BASOPHILS # (AUTO) 0.1 K/uL (0.0-0.2); BASOPHILS % (AUTO) 0.8 % (0.0-2.0); EOSINOPHILS % (AUTO) 3.5 % (0.0-6.0); LYMPHOCYTES # (AUTO) 0.8 K/uL (0.8-4.8); LYMPHOCYTES % (AUTO) 5.5 % (20.0-44.0); MEAN CORPUSCULAR HGB CONC 30 g/dl (31.0-36.0); MEAN CORPUSCULAR VOLUME 108 fL (80-96); MONOCYTES # (AUTO) 1.4 K/uL (0.1-1.30); MONOCYTES % (AUTO) 9.8 % (2.0-12.0); NEUTROPHILS # (AUTO) 11.7 K/uL (1.8-8.9); NEUTROPHILS % (AUTO) 80.4 % (43.0-81.0); PLATELET COUNT (AUTO) 136 K/uL (150-450); WHITE BLOOD COUNT (AUTO) 14.6 K/uL (4.3-11.0)
[2021-02-18 07:56] LABS: RED BLOOD CELL COUNT(AUTO) 1.76 MIL/uL (4.5-6.0)
[2021-02-18 07:58] LABS: HEMATOCRIT 19 % (39-51); HEMOGLOBIN 5.8 g/dL (13.5-17.5)
[2021-02-18 08:32] LABS: EOSINOPHILS % (MANUAL) 4 % (0-4); LYMPHOCYTES % (MANUAL) 3 % (16-48); METAMYELOCYTES % 7 % (0-0); MONOCYTES % (MANUAL) 2 % (0-11.0); NEUTROPHILS % (MANUAL) 82 (42-76)
[2021-02-18 08:33] LABS: MYELOCYTES % 2 % (0-0)
--- NOTE | 2021-02-18 08:58 | NUR ---
RN NOTES DR. GARRIDO NOTIFIED OF HEMOGLOBIN 5.8. PER MD, TO HAVE REPEAT HGB. . PUT IN ORDER.
[2021-02-18 09:23] LABS: HEMOGLOBIN 5.8 g/dL (13.5-17.5)
--- NOTE | 2021-02-18 09:30 | NUR ---
RN NOTES DUE MEDS GIVEN
[2021-02-18] MEDS: LEVETIRACETAM SOL (5 ML) 100 MG/ML UDC GT SCH (10:19)
[2021-02-18] MEDS: PANTOPRAZOLE 40 MG/PACK PACK GT SCH (10:19)
[2021-02-18] MEDS: VIT B CMPLX 3/FA/VIT C/BIOTIN 1 TAB TABLET GT SCH (10:19)
[2021-02-18 10:55] LABS: MEAN CORPUSCULAR HGB CONC 31 g/dl (31.0-36.0); MEAN CORPUSCULAR VOLUME 107 fL (80-96); PLATELET COUNT (AUTO) 142 K/uL (150-450); WHITE BLOOD COUNT (AUTO) 16.6 K/uL (4.3-11.0)
[2021-02-18 10:57] LABS: RED BLOOD CELL COUNT(AUTO) 1.81 MIL/uL (4.5-6.0)
[2021-02-18 10:58] LABS: HEMATOCRIT 19 % (39-51); HEMOGLOBIN 5.9 g/dL (13.5-17.5)
[2021-02-18] MEDS: MEROPENEM 500 MG in IV NS 0.9% 50 ML IV SCH (12:17)
[2021-02-18 14:00] LABS: ABG BASE EXCESS -4.3 mmol/L; ABG OXYGEN SATURATION 88.4 % (92.0-98.5); ABG PCO2 30.2 mmHg (35.0-45.0); ABG PH 7.428 (7.350-7.450); ABG PO2 56.6 mmHg (75.0-100.0); AaDO2 107.4 mmHg; MetHb 0.1 % (0.0-1.5); O2Hb 86.5 % (94.0-97.0); SITE, ABG Right Radial; VENT MODE, BG 28% C/A
--- NOTE | 2021-02-18 19:21 | NUR ---
MS RN CLOSING NOTES PATIENT REMAINS IN BED, ASLEEP, OBTUNDED ON T PIECE 5 L SATURATING 100 % AT THIS TIME. NO S/S OF PAIN SUCH FACIAL GRIMACING DURING SHIFT. HAS A SIERRA MIDLINE RUNNING NS @ 100 MLS/HR. ON LINE HOLIDAY SINCE 02/17/[address] Laurie MITTAL., G-TUBE IN PLACE RUNNING NEPHRO @ 40 MLS/HR. ALL NEEDS ATTENDED DURING THE DAY. SAFETY PRECAUTIONS IN PLACE; BED IN LOW POSITION AND LOCKED, RAILS UP X2, CALL LIGHT WITHIN REACH. PATIENT WITH ONGOING PRBC INFUSING WELL, NO REACTION NOTED. BAG 1 OF 3. ORDER ENTERED BY SOON CHARGE NURSE FOR ADDITIONAL 2 BAGS.
--- NOTE | 2021-02-18 19:30 | NUR ---
MS RN OPENING NOTE BEDSIDE REPORT RECIEVED FROM EMILY HUFFMAN. PATIENT IN BED, OBTUNDED ON T PIECE 5 L SATURATING 100 % . NO S/S OF PAIN OR DISTRESS SUCH FACIAL GRIMACING AT THIS TIME. HAS A SIERRA MIDLINE THAT IS BEING USED FOR BLOOD ADMINISTRATION, THE FIRST UNIT OF THREE THAT ARE ORDERED IS INFUSING. DUE TO HISTORY OF RENAL FAILURE NS ON HOLD WHILE BLOOD BEING ADMINISTERED. PER REPORT PATIENT HAD HD CATH REMOVED BY ICE HOUSE SUPERVISOR; ON LINE HOLIDAY SINCE 02/17/[address] Laurie MITTAL., G-TUBE IN PLACE RUNNING NEPHRO @ 40 MLS/HR. SAFETY PRECAUTIONS IN PLACE; BED IN LOW POSITION AND LOCKED, RAILS UP X2, CALL LIGHT PLACED WITHIN REACH. WILL CONT TO MONITOR.
--- NOTE | 2021-02-18 19:52 | NUR ---
BLOOD BANK CALLED HAVE SECOND UNIT OF PRBC READY FOR OPTOMETRIST ASSISTANT. PATIENT HAS ORDER FOR 3 UNITS OF PRBC PER REPORT. LAB STATE THAT THE THIRD UNIT MAY NOT BE AVAILABLE TONIGHT BUT ARE LOOKING INTO ACQUIRING 3RD UNIT. FIRST UNIT BEING ADMINISTERED AT THIS TIME.
[2021-02-18] MEDS: INSULIN GLARGINE, 100 UNIT/ML CARTRIDGE SQ SCH (21:51)
[2021-02-18] MEDS: ACETAMINOPHEN 650 MG/20.3 ML UDC GT PRN (21:52)
[2021-02-19] VITALS (13 sets, daily range): BP systolic 108–144; BP diastolic 58–94
[2021-02-19] MEDS: MEROPENEM 500 MG in IV NS 0.9% 50 ML IV SCH ×2 (00:13→11:36)
[2021-02-19] MEDS: BLOOD SUGAR DIAGNOSTIC 1 EACH STRIP IN SCH ×4 (00:13→18:09)
[2021-02-19] MEDS: ALBUTEROL FS 2.5 MG/3 ML VIAL.NEB NEB SCH ×4 (01:24→20:06)
[2021-02-19] MEDS: IV NS 0.9% 1,000 ML IV PRN ×2 (01:43→17:15)
[2021-02-19] MEDS: METOCLOPRAMIDE HCL 10 MG/10 ML UDC PO SCH ×3 (04:57→22:18)
--- NOTE | 2021-02-19 05:15 | NUR ---
CONCERN WITH FLUID OVERLOAD. INFORMED FIDENCIO AQUATICS MANAGER; 3RD UNIT TO BE HELD UNTIL REVIEW OF AM LABS COMPLETED. SPOKE WITH KETTY BALTAZAR AQUATICS MANAGER INFORMED OF PATIENT HISTORY AND CHRONIC RENAL FAILURE AND PATIENT ON LINE HOLIDAY. REVIEWED VITAL SIGNS. 3RD UNIT OF BLOOD PRBC IS READY IN LAB. NEW ORDER TO AWAIT MORNING LABS BEFORE TRANSFUSING 3RD UNIT OF BLOOD.
[2021-02-19 06:44] LABS: BASOPHILS # (AUTO) 0.1 K/uL (0.0-0.2); BASOPHILS % (AUTO) 0.7 % (0.0-2.0); EOSINOPHILS % (AUTO) 2.3 % (0.0-6.0); HEMATOCRIT 29 % (39-51); HEMOGLOBIN 9.4 g/dL (13.5-17.5); LYMPHOCYTES # (AUTO) 0.8 K/uL (0.8-4.8); LYMPHOCYTES % (AUTO) 4.6 % (20.0-44.0); MEAN CORPUSCULAR HGB CONC 32 g/dl (31.0-36.0); MEAN CORPUSCULAR VOLUME 102 fL (80-96); MONOCYTES # (AUTO) 1.5 K/uL (0.1-1.30); MONOCYTES % (AUTO) 8.9 % (2.0-12.0); NEUTROPHILS # (AUTO) 14.3 K/uL (1.8-8.9); NEUTROPHILS % (AUTO) 83.5 % (43.0-81.0); PLATELET COUNT (AUTO) 149 K/uL (150-450); RED BLOOD CELL COUNT(AUTO) 2.87 MIL/uL (4.5-6.0); WHITE BLOOD COUNT (AUTO) 17.1 K/uL (4.3-11.0)
[2021-02-19 06:58] LABS: CALCIUM, SERUM 8.5 mg/dL (8.5-10.1); CREATININE 4.4 mg/dL (0.6-1.3); POTASSIUM 4.4 mmol/L (3.5-5.1)
--- NOTE | 2021-02-19 08:33 | NUR ---
pt. placed back to AC 14, 500 VT, FIO2 28%, PEEP +5 due to 127 HR and 43 respiration. spo2 100% rn notified that pt needs to go back to vent due to increase work of breathing. Addendum: 02/19/21 at 0839 by FRANCESCA GARZA RT Amended: Links added.
[2021-02-19] MEDS: PANTOPRAZOLE 40 MG/PACK PACK GT SCH (09:07)
[2021-02-19] MEDS: PIPERACILLIN /TAZOBACTAM 2.25 G in IV D5W 50 ML IV SCH ×2 (09:07→17:15)
[2021-02-19] MEDS: LEVETIRACETAM SOL (5 ML) 100 MG/ML UDC GT SCH (09:07)
[2021-02-19] MEDS: VIT B CMPLX 3/FA/VIT C/BIOTIN 1 TAB TABLET GT SCH (09:07)
[2021-02-19] MEDS: INSULIN GLARGINE, 100 UNIT/ML CARTRIDGE SQ SCH (22:38)
[2021-02-20] VITALS: BP 133/83
[2021-02-20] MEDS: MEROPENEM 500 MG in IV NS 0.9% 50 ML IV SCH ×2 (00:07→12:44)
[2021-02-20] MEDS: PIPERACILLIN /TAZOBACTAM 2.25 G in IV D5W 50 ML IV SCH ×3 (00:48→17:03)
[2021-02-20] MEDS: ACETAMINOPHEN 650 MG/20.3 ML UDC GT PRN ×2 (00:51→17:19)
[2021-02-20] MEDS: ALBUTEROL FS 2.5 MG/3 ML VIAL.NEB NEB SCH ×4 (02:00→19:55)
[2021-02-20 08:00] VITALS: BP 110/75
[2021-02-20] MEDS: PANTOPRAZOLE 40 MG/PACK PACK GT SCH (09:27)
[2021-02-20] MEDS: LEVETIRACETAM SOL (5 ML) 100 MG/ML UDC GT SCH (09:28)
[2021-02-20] MEDS: VIT B CMPLX 3/FA/VIT C/BIOTIN 1 TAB TABLET GT SCH (09:28)
[2021-02-20 12:00] VITALS: BP 118/84
[2021-02-20] MEDS: BLOOD SUGAR DIAGNOSTIC 1 EACH STRIP IN SCH ×5 (12:00→23:43)
[2021-02-20] MEDS: METOCLOPRAMIDE HCL 10 MG/10 ML UDC PO SCH ×3 (12:47→21:07)
[2021-02-20 13:26] LABS: BASOPHILS # (AUTO) 0.2 K/uL (0.0-0.2); EOSINOPHILS % (AUTO) 2.8 % (0.0-6.0); HEMATOCRIT 25 % (39-51); HEMOGLOBIN 8.1 g/dL (13.5-17.5); LYMPHOCYTES # (AUTO) 0.7 K/uL (0.8-4.8); LYMPHOCYTES % (AUTO) 4.4 % (20.0-44.0); MEAN CORPUSCULAR HGB CONC 32 g/dl (31.0-36.0); MEAN CORPUSCULAR VOLUME 103 fL (80-96); MONOCYTES # (AUTO) 1.2 K/uL (0.1-1.30); NEUTROPHILS % (AUTO) 84.8 % (43.0-81.0); PLATELET COUNT (AUTO) 143 K/uL (150-450); RED BLOOD CELL COUNT(AUTO) 2.48 MIL/uL (4.5-6.0); WHITE BLOOD COUNT (AUTO) 16.5 K/uL (4.3-11.0)
[2021-02-20 13:37] LABS: CALCIUM, SERUM 8.5 mg/dL (8.5-10.1); CREATININE 4.9 mg/dL (0.6-1.3); POTASSIUM 4.7 mmol/L (3.5-5.1)
[2021-02-20] MEDS: INSULIN REGULAR, HUMAN 100 UNIT/ML 3 ML VIAL SQ PRN (13:38)
--- NOTE | 2021-02-20 13:38 | NUR ---
Charge nurse left message for patient family for consent for hemodialysis catheter placement today after 5 pm. Pete White RN
--- NOTE | 2021-02-20 18:37 | NUR ---
Alireza Curran and video games storywriter spoke with Loren regarding consent for hemodialysis catheter placement. Call to Jules regarding consent. Supplies at bedside include curved hemodialysis catheter 13fr 15 cm, ultrasound probe cover and peripherally inserted central line kit. Pete White RN
--- NOTE | 2021-02-20 19:35 | NUR ---
RN Opening Notes Patient was seen resting in bed. Patient is obtunded. Patient's in no respiratory distress. Patient's on a tele monitor in no cardiac distress. Patient has a diaper and is incontinent. Patient is on a g-tube running nephro at 40 ml/hr. Patient has a SIERRA midline, which is intact and patent. Patient's in no acute distress at this time. Safety measures are in place: Bed is locked, bed alarm is on, side rails are up x3, and call light is within reach of the patient. Will continue to monitor the patient.
[2021-02-20 20:16] VITALS: BP 118/79
[2021-02-20] MEDS: INSULIN GLARGINE, 100 UNIT/ML CARTRIDGE SQ SCH (22:00)
--- NOTE | 2021-02-20 22:50 | NUR ---
RN Notes Pt's scheduled glargine at 2200 was not given due to blood mvlxd=091 mg/dL. Will continue to monitor the patient.
--- NOTE | 2021-02-20 23:18 | NUR ---
RN Notes Patient's blood sugar at 2305 was 89 mg/dL. Will continue to monitor the patient.
[2021-02-21] VITALS: BP 110/77
[2021-02-21] MEDS: MEROPENEM 500 MG in IV NS 0.9% 50 ML IV SCH ×2 (00:12→11:16)
[2021-02-21] MEDS: PIPERACILLIN /TAZOBACTAM 2.25 G in IV D5W 50 ML IV SCH ×3 (01:27→16:08)
[2021-02-21] MEDS: ALBUTEROL FS 2.5 MG/3 ML VIAL.NEB NEB SCH ×4 (01:44→19:06)
[2021-02-21 04:00] VITALS: BP 118/82
[2021-02-21] MEDS: IV NS 0.9% 1,000 ML IV PRN ×2 (04:48→18:26)
[2021-02-21] MEDS: METOCLOPRAMIDE HCL 10 MG/10 ML UDC PO SCH ×3 (04:51→20:06)
[2021-02-21] MEDS: BLOOD SUGAR DIAGNOSTIC 1 EACH STRIP IN SCH ×3 (05:39→17:19)
--- NOTE | 2021-02-21 05:40 | NUR ---
RN Notes Patient's blood sugar at 0511 was 104mg/dL.
--- NOTE | 2021-02-21 07:50 | NUR ---
RN NOTE PATIENT IS IN BED WITH HOB AT SEMI FOWLERS POSITION. PATIENT IS ON ROOM AIR WITH NO SIGNS OF LABORED BREATHING. PATIENT IS AOX0. GTUBE IS IN PLACE. SIERRA MIDLINE IS PATENT AND INTACT. BED IS LOCKED IN THE LOWEST POSITION, 3 GUARD RAILS RAISED, CALL JORGE WITHIN REACH, AND ALL HOSPITAL SAFETY PRECAUTIONS ARE BEING FOLLOWED. WILL CONTINUE TO MONITOR THROUGHOUT SHIFT.
[2021-02-21 08:00] VITALS: BP 110/76
[2021-02-21] MEDS: VIT B CMPLX 3/FA/VIT C/BIOTIN 1 TAB TABLET GT SCH (08:03)
[2021-02-21] MEDS: LEVETIRACETAM SOL (5 ML) 100 MG/ML UDC GT SCH (08:03)
[2021-02-21] MEDS: PANTOPRAZOLE 40 MG/PACK PACK GT SCH (08:03)
--- NOTE | 2021-02-21 08:08 | NUR ---
RN Closing Notes Patient was seen sleeping in bed. Patient is obtunded. Patient's in no respiratory distress. Patient's on a tele monitor in no cardiac distress. Patient has a diaper and is incontinent. Patient is on a g-tube. Patient has a SIERRA midline, which is intact and patent. Patient's in no acute distress at this time. Safety measures are in place: Bed is locked, bed alarm is on, side rails are up x3, and call light is within reach of the patient. Endorsed care to the day shift nurse.
[2021-02-21] MEDS: NEPRO 1,000 ML BOTTLE GT SCH (08:09)
[2021-02-21 12:00] VITALS: BP 109/72
[2021-02-21 16:00] VITALS: BP 109/72
--- NOTE | 2021-02-21 18:51 | NUR ---
RN NOTE PATIENT IS IN BED WITH HOB AT SEMI FOWLERS POSITION. PATIENT IS ON ROOM AIR WITH NO SIGNS OF LABORED BREATHING. PATIENT IS OBTUNDED. GTUBE IS IN PLACE. SIERRA MIDLINE IS PATENT AND INTACT. BED IS LOCKED IN THE LOWEST POSITION, 3 GUARD RAILS RAISED, CALL JORGE WITHIN REACH, AND ALL HOSPITAL SAFETY PRECAUTIONS ARE BEING FOLLOWED. ALL DUE MEDS GIVEN AND PATIENT REMAINED STABLE THROUGHOUT SHIFT. WILL ENDORSE TO FERN PICKER RN.
--- NOTE | 2021-02-21 19:25 | NUR ---
RN NOTE RECEIVED PATIENT IN BED RESTING OBTUNDED NON VERBAL ON MECHANICAL VENT SETTING TRACH PORTEX 7 AC 14 TV 500 FIO2:5 O2:98% IV SITE IS ON RIGHT UPPER ARM MIDLINE INTACT AND RIGHT IJ PERM CATH FOR HD INCONTINENT TO BOWEL/BLADDER ON IV HYDRATION NS 100CC/HR HEAD OF THE BED ELEVATED,ON G-TUBE FEEDING NEPRO 40CC/HR CHECKED PLACEMENT,IN PLACE NO RESIDUAL NOTED,SAFETY MEASURE IMPLEMENTED,BED IN LOW POSITION AND LOCKED,CONTINUE TO MONITOR.
[2021-02-21 20:00] VITALS: BP 113/54
[2021-02-21] MEDS: INSULIN GLARGINE, 100 UNIT/ML CARTRIDGE SQ SCH (21:39)
[2021-02-22] VITALS: BP 115/61
[2021-02-22] MEDS: BLOOD SUGAR DIAGNOSTIC 1 EACH STRIP IN SCH ×5 (00:07→23:09)
[2021-02-22] MEDS: INSULIN REGULAR, HUMAN 100 UNIT/ML 3 ML VIAL SQ PRN ×4 (00:09→23:06)
[2021-02-22] MEDS: MEROPENEM 500 MG in IV NS 0.9% 50 ML IV SCH ×2 (00:10→11:18)
[2021-02-22] MEDS: PIPERACILLIN /TAZOBACTAM 2.25 G in IV D5W 50 ML IV SCH ×3 (01:06→16:00)
[2021-02-22] MEDS: ALBUTEROL FS 2.5 MG/3 ML VIAL.NEB NEB SCH ×4 (01:14→19:43)
[2021-02-22 04:00] VITALS: BP 91/61
[2021-02-22] MEDS: METOCLOPRAMIDE HCL 10 MG/10 ML UDC PO SCH ×3 (05:11→20:54)
--- NOTE | 2021-02-22 07:13 | NUR ---
RN NOTE PATIENT REMAINS ON OBTUNDED EYE OPEN NO SOB NOT ACUTE DISTRESS NOTED ALL DUE MEDS GIVEN MD ORDERED KEEP CLEAN AND DRY ALL THE TIME,REPOSITIONED EVERY 2 HOURS ALL NEEDS MET ENDORSE NEXT COMING SHIFT FOR CONTINUATION OF CARE.
[2021-02-22 07:23] LABS: BASOPHILS # (AUTO) 0.1 K/uL (0.0-0.2); BASOPHILS % (AUTO) 0.7 % (0.0-2.0); HEMATOCRIT 23 % (39-51); HEMOGLOBIN 7.5 g/dL (13.5-17.5); LYMPHOCYTES # (AUTO) 0.7 K/uL (0.8-4.8); LYMPHOCYTES % (AUTO) 4.5 % (20.0-44.0); MEAN CORPUSCULAR HGB CONC 32 g/dl (31.0-36.0); MEAN CORPUSCULAR VOLUME 103 fL (80-96); MONOCYTES % (AUTO) 6.9 % (2.0-12.0); NEUTROPHILS # (AUTO) 12.4 K/uL (1.8-8.9); NEUTROPHILS % (AUTO) 84.9 % (43.0-81.0); PLATELET COUNT (AUTO) 145 K/uL (150-450); RED BLOOD CELL COUNT(AUTO) 2.28 MIL/uL (4.5-6.0); WHITE BLOOD COUNT (AUTO) 14.6 K/uL (4.3-11.0)
[2021-02-22] MEDS: IV NS 0.9% 1,000 ML IV PRN ×2 (07:32→18:25)
--- NOTE | 2021-02-22 07:50 | NUR ---
RN NOTE PATIENT IS IN BED WITH HOB AT SEMI FOWLERS POSITION. PATIENT IS ON VENT/TRACH WITH NO SIGNS OF LABORED BREATHING. PATIENT IS OBTUNDED. GTUBE IS IN PLACE. SIERRA MIDLINE IS PATENT AND INTACT. BED IS LOCKED IN THE LOWEST POSITION, 3 GUARD RAILS RAISED, CALL JORGE WITHIN REACH, AND ALL HOSPITAL SAFETY PRECAUTIONS ARE BEING FOLLOWED. WILL CONTINUE TO MONITOR THROUGHOUT SHIFT.
[2021-02-22 08:00] VITALS: BP 100/69
[2021-02-22 08:01] LABS: CALCIUM, SERUM 8.1 mg/dL (8.5-10.1); CREATININE 3.6 mg/dL (0.6-1.3); MAGNESIUM 2.3 mg/dL (1.8-2.4); POTASSIUM 3.8 mmol/L (3.5-5.1)
[2021-02-22] MEDS: VIT B CMPLX 3/FA/VIT C/BIOTIN 1 TAB TABLET GT SCH (08:17)
[2021-02-22] MEDS: LEVETIRACETAM SOL (5 ML) 100 MG/ML UDC GT SCH (08:17)
[2021-02-22] MEDS: PANTOPRAZOLE 40 MG/PACK PACK GT SCH (08:17)
--- NOTE | 2021-02-22 09:07 | NUR ---
RT NOTE PT RECEIVED MECHANICALLY VENTILATED VIA CUFFED TRACHEOSTOMY TUBE. CUFF INFLATED. TRACH TUBE MIDLINE AND SECURE. VENTILATOR SETTINGS PRESCRIBED. ALARMS SET PER PROTOCOL AND AUDIBLE. VENT PLUGGED IN TO RED OUTLET. AMBU BAG AT BED SIDE. NO DISTRESS NOTED. Addendum: 02/22/21 at 0909 by IRWIN INFANTE RT Amended: Links added.
[2021-02-22 12:00] VITALS: BP 101/75
[2021-02-22 16:00] VITALS: BP 105/74
[2021-02-22] MEDS: NEPRO 1,000 ML BOTTLE GT SCH (16:37)
--- NOTE | 2021-02-22 19:01 | NUR ---
RN NOTE PATIENT IS IN BED WITH HOB AT SEMI FOWLERS POSITION. PATIENT IS ON VENT/TRACH WITH NO SIGNS OF LABORED BREATHING. PATIENT IS OBTUNDED. GTUBE IS IN PLACE. SIERRA MIDLINE IS PATENT AND INTACT. BED IS LOCKED IN THE LOWEST POSITION, 3 GUARD RAILS RAISED, CALL JORGE WITHIN REACH, AND ALL HOSPITAL SAFETY PRECAUTIONS ARE BEING FOLLOWED. ALL DUE MEDS GIVEN AND PATIENT REMAINED STABLE THROUGHOUT SHIFT. WILL ENDORSE TO OPTICAL MANAGER RN.
[2021-02-22 20:00] VITALS: BP_SYST 104; BP_SYST 86; BP_DIAS 37; BP_DIAS 76
--- NOTE | 2021-02-22 20:00 | NUR ---
RN NOTE RECEIVED PATIENT IN BED OBTUNDED NON VERBAL ON MECHANICAL VENT SETTING WELL TOLERATED NPO SOB NO DISTRESS NOTED V/S STABLE AFEBRILE . PTS ON TELE ST 104 ON THE MONITOR DUE MEDS GIVEN ORDERED . IV SITE IS ON RIGHT UPPER ARM MIDLINE INTACT AND RIGHT IJ PERM CATH FOR HD, INCONTINENT TO BOWEL/BLADDER ON IV HYDRATION NS 100CC/HR INFUSING WELL HEAD OF THE BED ELEVATED,ON G-TUBE FEEDING NEPRO 40CC/HR CHECKED PLACEMENT,IN PLACE NO RESIDUAL NOTED,SAFETY MEASURE IMPLEMENTED,BED IN LOW POSITION AND LOCKED,CONTINUE TO MONITOR.
--- NOTE | 2021-02-22 23:00 | NUR ---
SR. LOGISTICS ANALYST NOTES BLOOD SUGAR AT 2300HRS IS 133MG/DL =2 UNITS OF REGULAR INSULIN ANND 9 UNITS LANTUS GIVEN ORDERED.WILL CHECK BLOOD SUGAR AGAIN IN AM.
[2021-02-22] MEDS: INSULIN GLARGINE, 100 UNIT/ML CARTRIDGE SQ SCH (23:12)
[2021-02-23] VITALS: BP_SYST 100; BP_SYST 86; BP_DIAS 37; BP_DIAS 69
[2021-02-23] MEDS: MEROPENEM 500 MG in IV NS 0.9% 50 ML IV SCH
[2021-02-23] MEDS: PIPERACILLIN /TAZOBACTAM 2.25 G in IV D5W 50 ML IV SCH ×3 (00:49→16:19)
[2021-02-23] MEDS: ALBUTEROL FS 2.5 MG/3 ML VIAL.NEB NEB SCH ×4 (01:43→19:30)
[2021-02-23 04:00] VITALS: BP 91/63
[2021-02-23] MEDS: METOCLOPRAMIDE HCL 10 MG/10 ML UDC PO SCH ×3 (05:36→22:24)
[2021-02-23] MEDS: INSULIN REGULAR, HUMAN 100 UNIT/ML 3 ML VIAL SQ PRN (06:18)
[2021-02-23] MEDS: BLOOD SUGAR DIAGNOSTIC 1 EACH STRIP IN SCH ×4 (06:20→22:30)
[2021-02-23] MEDS: IV NS 0.9% 1,000 ML IV PRN ×2 (06:40→16:19)
--- NOTE | 2021-02-23 06:45 | NUR ---
parris rn notes received critical result hgb is 6.[address] lemons awaiting for reply.
[2021-02-23 07:10] LABS: BASOPHILS # (AUTO) 0.1 K/uL (0.0-0.2); BASOPHILS % (AUTO) 0.7 % (0.0-2.0); EOSINOPHILS % (AUTO) 4.6 % (0.0-6.0); HEMATOCRIT 23 % (39-51); HEMOGLOBIN 7.4 g/dL (13.5-17.5); LYMPHOCYTES # (AUTO) 0.6 K/uL (0.8-4.8); MEAN CORPUSCULAR HGB CONC 32 g/dl (31.0-36.0); MEAN CORPUSCULAR VOLUME 104 fL (80-96); MONOCYTES # (AUTO) 0.9 K/uL (0.1-1.30); MONOCYTES % (AUTO) 7.2 % (2.0-12.0); NEUTROPHILS # (AUTO) 10.3 K/uL (1.8-8.9); NEUTROPHILS % (AUTO) 82.5 % (43.0-81.0); PLATELET COUNT (AUTO) 155 K/uL (150-450); RED BLOOD CELL COUNT(AUTO) 2.21 MIL/uL (4.5-6.0); WHITE BLOOD COUNT (AUTO) 12.5 K/uL (4.3-11.0)
[2021-02-23 07:42] LABS: BILIRUBIN,TOTAL 0.4 mg/dL (0.2-1.0); CALCIUM, SERUM 8.4 mg/dL (8.5-10.1); TOTAL PROTEIN, SERUM 6.7 g/dL (6.4-8.2)
[2021-02-23 08:00] VITALS: BP 104/71
[2021-02-23 08:19] LABS: ALBUMIN 1.4 g/dL (3.4-5.0)
[2021-02-23] MEDS: LEVETIRACETAM SOL (5 ML) 100 MG/ML UDC GT SCH (08:27)
[2021-02-23] MEDS: VIT B CMPLX 3/FA/VIT C/BIOTIN 1 TAB TABLET GT SCH (08:27)
[2021-02-23] MEDS: PANTOPRAZOLE 40 MG/PACK PACK GT SCH (08:27)
[2021-02-23 12:00] VITALS: BP 111/73
[2021-02-23 16:00] VITALS: BP 108/70
[2021-02-23] MEDS: NEPRO 1,000 ML BOTTLE GT SCH (16:44)
--- NOTE | 2021-02-23 18:42 | NUR ---
RN NOTE PATIENT IS IN BED WITH HOB AT SEMI FOWLERS POSITION. PATIENT IS ON VENT/TRACH WITH NO SIGNS OF LABORED BREATHING. PATIENT IS OBTUNDED. GTUBE IS IN PLACE. SIERRA MIDLINE IS PATENT AND INTACT. BED IS LOCKED IN THE LOWEST POSITION, 3 GUARD RAILS RAISED, CALL JORGE WITHIN REACH, AND ALL HOSPITAL SAFETY PRECAUTIONS ARE BEING FOLLOWED. ALL DUE MEDS GIVEN AND PATIENT REMAINED STABLE THROUGHOUT SHIFT. WILL ENDORSE TO DOT ETCHER RN.
[2021-02-23 20:00] VITALS: BP 99/62
[2021-02-23] MEDS: INSULIN GLARGINE, 100 UNIT/ML CARTRIDGE SQ SCH (22:00)
[2021-02-24] VITALS: BP 106/74
[2021-02-24] MEDS: ALBUTEROL FS 2.5 MG/3 ML VIAL.NEB NEB SCH ×4 (01:23→19:13)
[2021-02-24] MEDS: PIPERACILLIN /TAZOBACTAM 2.25 G in IV D5W 50 ML IV SCH ×3 (01:52→16:21)
[2021-02-24] MEDS: IV NS 0.9% 1,000 ML IV PRN ×2 (01:58→22:24)
--- NOTE | 2021-02-24 03:38 | NUR ---
RN notes In bed resting comfortably with no distress noted. Alert, disoriented, non verbal. On vent, setting well tolerated. Breathing even and unlabored. Suctioned large amount of semi loose yellowish secretion. No complaint of pain or discomfort. Kept clean and comfortable. Will endorse to next shift for continuity of care.
[2021-02-24 04:00] VITALS: BP 115/61
[2021-02-24] MEDS: METOCLOPRAMIDE HCL 10 MG/10 ML UDC PO SCH ×3 (04:55→22:20)
[2021-02-24] MEDS: BLOOD SUGAR DIAGNOSTIC 1 EACH STRIP IN SCH ×4 (06:04→22:20)
[2021-02-24] MEDS: INSULIN REGULAR, HUMAN 100 UNIT/ML 3 ML VIAL SQ PRN ×2 (06:06→22:21)
[2021-02-24 07:30] LABS: BASOPHILS # (AUTO) 0.1 K/uL (0.0-0.2); BASOPHILS % (AUTO) 0.8 % (0.0-2.0); EOSINOPHILS % (AUTO) 4.5 % (0.0-6.0); HEMATOCRIT 23 % (39-51); HEMOGLOBIN 7.4 g/dL (13.5-17.5); LYMPHOCYTES # (AUTO) 0.8 K/uL (0.8-4.8); LYMPHOCYTES % (AUTO) 7.7 % (20.0-44.0); MEAN CORPUSCULAR HGB CONC 33 g/dl (31.0-36.0); MEAN CORPUSCULAR VOLUME 106 fL (80-96); MONOCYTES # (AUTO) 0.8 K/uL (0.1-1.30); MONOCYTES % (AUTO) 7.8 % (2.0-12.0); NEUTROPHILS # (AUTO) 8.1 K/uL (1.8-8.9); NEUTROPHILS % (AUTO) 79.2 % (43.0-81.0); PLATELET COUNT (AUTO) 163 K/uL (150-450); RED BLOOD CELL COUNT(AUTO) 2.15 MIL/uL (4.5-6.0); WHITE BLOOD COUNT (AUTO) 10.2 K/uL (4.3-11.0)
--- NOTE | 2021-02-24 07:30 | NUR ---
FREEZER MACHINE OPERATOR NOTES PT IN BED, AWAKE, NO FACIAL GRIMACING, NO SHORTNESS OF BREATH, GT FEEDING INFUSING WELL, TOLERATES WELL, KEPT HOB ELEVATED TO PREVENT ASPIRATION, KEPT COMFORTABLE IN BED.
[2021-02-24 08:00] VITALS: BP 105/69
[2021-02-24] MEDS: PANTOPRAZOLE 40 MG/PACK PACK GT SCH (08:13)
[2021-02-24] MEDS: VIT B CMPLX 3/FA/VIT C/BIOTIN 1 TAB TABLET GT SCH (08:14)
[2021-02-24] MEDS: LEVETIRACETAM SOL (5 ML) 100 MG/ML UDC GT SCH (08:14)
--- NOTE | 2021-02-24 10:23 | NUR ---
MANAGING SUPERVISOR NOTES PT SEEN AND EXAMINED BY DR. BALTAZAR, PT RESTING, NO BLEEDING NOTED, TURNED AND REPOSITIONED FOR COMFORT, KEPT HOSPITAL SUPERVISOR BED.
[2021-02-24 12:00] VITALS: BP 119/71
[2021-02-24 16:00] VITALS: BP 121/76
--- NOTE | 2021-02-24 19:00 | NUR ---
TECHNOLOGY COACH NOTES PT IN BED, RESTING, AWAKE, NON VERBAL, NO SIGN OF PAIN, NOT IN DISTRESS, GT FEEDING INFUSING WELL, PM MEDS GIVEN, PM CARE PROVIDED, TURNED AND REPOSITIONED Q2 HOURS, KEPT WARM AND COMFORTABLE IN BED.
[2021-02-24 20:00] VITALS: BP 109/78
[2021-02-24] MEDS: INSULIN GLARGINE, 100 UNIT/ML CARTRIDGE SQ SCH (22:00)
[2021-02-25] VITALS: BP 120/80
[2021-02-25] MEDS: PIPERACILLIN /TAZOBACTAM 2.25 G in IV D5W 50 ML IV SCH ×3 (00:46→17:19)
[2021-02-25] MEDS: ALBUTEROL FS 2.5 MG/3 ML VIAL.NEB NEB SCH ×4 (01:16→20:00)
--- NOTE | 2021-02-25 03:34 | NUR ---
RN notes, Alert to self with eye tracking, non verbal, non ambulatory. No distress noted. Breathing even and unlabored. Vent settings well tolerated. No physical manifestation of pain or discomfort. Vital signs wnl. No significant change of condition. Kept clean and dry. Will endorse to next shift for continuity of care.
[2021-02-25 04:00] VITALS: BP 119/87
[2021-02-25] MEDS: METOCLOPRAMIDE HCL 10 MG/10 ML UDC PO SCH ×3 (05:23→21:13)
[2021-02-25 06:13] LABS: BASOPHILS # (AUTO) 0.1 K/uL (0.0-0.2); BASOPHILS % (AUTO) 0.6 % (0.0-2.0); EOSINOPHILS % (AUTO) 1.7 % (0.0-6.0); HEMATOCRIT 25 % (39-51); HEMOGLOBIN 7.9 g/dL (13.5-17.5); LYMPHOCYTES % (AUTO) 7.7 % (20.0-44.0); MEAN CORPUSCULAR HGB CONC 32 g/dl (31.0-36.0); MEAN CORPUSCULAR VOLUME 106 fL (80-96); MONOCYTES # (AUTO) 1.2 K/uL (0.1-1.30); MONOCYTES % (AUTO) 8.6 % (2.0-12.0); NEUTROPHILS # (AUTO) 10.9 K/uL (1.8-8.9); NEUTROPHILS % (AUTO) 81.4 % (43.0-81.0); PLATELET COUNT (AUTO) 221 K/uL (150-450); RED BLOOD CELL COUNT(AUTO) 2.36 MIL/uL (4.5-6.0); WHITE BLOOD COUNT (AUTO) 13.4 K/uL (4.3-11.0)
[2021-02-25] MEDS: BLOOD SUGAR DIAGNOSTIC 1 EACH STRIP IN SCH ×4 (06:24→22:31)
[2021-02-25] MEDS: INSULIN REGULAR, HUMAN 100 UNIT/ML 3 ML VIAL SQ PRN ×3 (06:24→17:44)
[2021-02-25 06:30] LABS: CALCIUM, SERUM 8.2 mg/dL (8.5-10.1); CREATININE 3.3 mg/dL (0.6-1.3); POTASSIUM 3.8 mmol/L (3.5-5.1)
[2021-02-25 08:00] VITALS: BP 123/85
--- NOTE | 2021-02-25 08:00 | NUR ---
RN OPENING NOTE PT OBTUNDED. V/S STABLE. AROUSES TO LIGHT PAIN. TRACH PRESENT AND SETTING CHECKED. NO SIGNS OF RESPIRATORY DISTRESS PRESENT. ON SOIL CONSERVATION TEACHER. NO EDEMA PRESENT. ON BEDREST WITH DIAPER PRESENT. SACRAL AND SCROTUM REDNESS PRESENT AND WOUND CARE ORDERED. SIERRA MIDLINE PRESENT. R IJ PERMACATH PRESENT. ACCUCHECK ACHS. LABS AND ORDERS REVIEWED. SAFETY MEASURES IN PLACE. SIDE RAILS RAISED. BED LOWERED. CALL LIGHT WITHIN REACH. WILL CONTINUE TO MONITOR.
[2021-02-25] MEDS: LEVETIRACETAM SOL (5 ML) 100 MG/ML UDC GT SCH (08:41)
[2021-02-25] MEDS: PANTOPRAZOLE 40 MG/PACK PACK GT SCH (08:42)
[2021-02-25] MEDS: VIT B CMPLX 3/FA/VIT C/BIOTIN 1 TAB TABLET GT SCH (08:42)
[2021-02-25 12:00] VITALS: BP 120/75
[2021-02-25 16:00] VITALS: BP 107/75
--- NOTE | 2021-02-25 19:00 | NUR ---
RN CLOSING NOTE PT OBTUNDED. V/S STABLE. AROUSES TO LIGHT PAIN. TRACH PRESENT AND SETTING CHECKED. NO SIGNS OF RESPIRATORY DISTRESS PRESENT. ON ENROLLMENT SERVICES DEAN. NO EDEMA PRESENT. ON BEDREST WITH DIAPER PRESENT. SACRAL AND SCROTUM REDNESS PRESENT AND WOUND CARE ORDERED. SIERRA MIDLINE PRESENT. R IJ PERMACATH PRESENT. ACCUCHECK ACHS. LABS AND ORDERS REVIEWED. ROUTINE MEDS GIVEN. SAFETY MEASURES IN PLACE. SIDE RAILS RAISED. BED LOWERED. CALL LIGHT WITHIN REACH. REPORT TO BE GIVEN TO NIGHT NURSE FOR LUKE.
[2021-02-25 20:00] VITALS: BP 111/69
[2021-02-25] MEDS: INSULIN GLARGINE, 100 UNIT/ML CARTRIDGE SQ SCH (22:31)
[2021-02-26] VITALS: BP 99/68
[2021-02-26] MEDS: ACETAMINOPHEN 650 MG/20.3 ML UDC GT PRN (00:32)
[2021-02-26] MEDS: PIPERACILLIN /TAZOBACTAM 2.25 G in IV D5W 50 ML IV SCH ×3 (00:33→16:05)
[2021-02-26] MEDS: ALBUTEROL FS 2.5 MG/3 ML VIAL.NEB NEB SCH ×4 (01:47→19:44)
[2021-02-26 04:00] VITALS: BP 105/69
[2021-02-26] MEDS: METOCLOPRAMIDE HCL 10 MG/10 ML UDC PO SCH ×3 (05:18→21:17)
[2021-02-26] MEDS: BLOOD SUGAR DIAGNOSTIC 1 EACH STRIP IN SCH ×3 (06:08→17:25)
[2021-02-26] MEDS: INSULIN REGULAR, HUMAN 100 UNIT/ML 3 ML VIAL SQ PRN ×2 (06:11→12:16)
--- NOTE | 2021-02-26 06:27 | NUR ---
FOOD SERVICE ATTENDANT NOTES AWAKE. RESPONSIVE TO TACTILE STIMULI. NON VERBAL. NOT IN ANY DISTRESS. NO SOB NOTED. NO S/SX OF ANY PAIN OR DISCOMFORT AT THIS TIME. ON TELE ST @ 108 WITH SAME VENT SETTINGS WITH ML PATENT & INTACT. AM CARE DONE. MONITORED ACCORDINGLY. CALL LIGHT WITHIN REACH. BED IN LOWEST POSITION. SR UP X 3 WITH BED ALARM ON FOR SAFETY. WILL ENDORSE TO NEXT SHIFT.
[2021-02-26 06:42] LABS: BASOPHILS # (AUTO) 0.1 K/uL (0.0-0.2); BASOPHILS % (AUTO) 0.5 % (0.0-2.0); EOSINOPHILS % (AUTO) 2.3 % (0.0-6.0); HEMATOCRIT 23 % (39-51); HEMOGLOBIN 7.2 g/dL (13.5-17.5); LYMPHOCYTES # (AUTO) 0.9 K/uL (0.8-4.8); LYMPHOCYTES % (AUTO) 6.7 % (20.0-44.0); MEAN CORPUSCULAR HGB CONC 32 g/dl (31.0-36.0); MEAN CORPUSCULAR VOLUME 106 fL (80-96); MONOCYTES # (AUTO) 1.2 K/uL (0.1-1.30); MONOCYTES % (AUTO) 8.9 % (2.0-12.0); NEUTROPHILS # (AUTO) 11.3 K/uL (1.8-8.9); NEUTROPHILS % (AUTO) 81.6 % (43.0-81.0); PLATELET COUNT (AUTO) 178 K/uL (150-450); RED BLOOD CELL COUNT(AUTO) 2.12 MIL/uL (4.5-6.0); WHITE BLOOD COUNT (AUTO) 13.9 K/uL (4.3-11.0)
[2021-02-26 06:58] LABS: CALCIUM, SERUM 8.2 mg/dL (8.5-10.1); CREATININE 2.8 mg/dL (0.6-1.3); POTASSIUM 3.7 mmol/L (3.5-5.1)
--- NOTE | 2021-02-26 07:26 | NUR ---
SHIP ENGINES OPERATING ENGINEER NOTES PATIENT UN BED OBTUNDED, TO TACTILE STIMULI. NON VERBAL. NOT IN ANY DISTRESS. NO SOB NOTED. NO S/SX OF ANY PAIN OR DISCOMFORT AT THIS TIME. ON TELE SR @ 99 WITH SAME VENT SETTINGS WITH ML PATENT & INTACT. CALL LIGHT WITHIN REACH. BED IN LOWEST POSITION. SR UP X 3 WITH BED ALARM ON FOR SAFETY, WITH G TUBE FEEDING ORDERED, NO RESIDUAL NOTED KEEP HOB ELEVATED AT ALL TIME , RT IG PERMA CATH , WILL CONT TO MONITOR
[2021-02-26] MEDS: NEPRO 1,000 ML BOTTLE GT SCH (07:58)
[2021-02-26 08:00] VITALS: BP 99/68
[2021-02-26] MEDS: PANTOPRAZOLE 40 MG/PACK PACK GT SCH (08:42)
[2021-02-26] MEDS: VIT B CMPLX 3/FA/VIT C/BIOTIN 1 TAB TABLET GT SCH (08:42)
[2021-02-26] MEDS: LEVETIRACETAM SOL (5 ML) 100 MG/ML UDC GT SCH (08:42)
--- NOTE | 2021-02-26 10:30 | NUR ---
PIPELINE ENGINEER NOTE TRACH SUCTION DONE , KEEP CLEAN DRY TURN REPOSITION Q2 HOUR
[2021-02-26 12:00] VITALS: BP 100/72
--- NOTE | 2021-02-26 12:37 | NUR ---
TEMO HUFFMAN NOTE SEEN BY KETTY HUFFMAN VICE PRESIDENT OF BUSINESS DEVELOPMENT AWARE THAT BP 100/72 , WITH POSSIBLE DISCHARGE TO SNF Addendum: 02/26/21 at 1239 by PERLITA AVILA RN WRONG MOO
--- NOTE | 2021-02-26 12:39 | NUR ---
SILK BRUSHER NOTE SEEN BY KETTY HUFFMAN SCHOOL CUSTODIAN AWARE THAT BP 100/72 HG 7.2 , WILL CONT TO MONITOR CLOSELY
--- NOTE | 2021-02-26 15:00 | NUR ---
BED SPRING MAKER NOTE ROUNDS MADE ALL NEEDS ATTENDED WITH TACH TO VENT SETTING ORDERED, KEEP CLEAN DRY, NOT IN DISTRESS
[2021-02-26 16:00] VITALS: BP 107/72
--- NOTE | 2021-02-26 17:58 | NUR ---
CERTIFIED MORTICIAN NOTE CALLED TO SISTER ,TELEPHONE CONSENT OBTAINED FOR HD CATH PLACEMENT
--- NOTE | 2021-02-26 18:33 | NUR ---
TAX SPECIALIST NOTE PATIENT IN BED WITH TRACH TO VENT SETTING ORDERED ALL NEEDS ATTENDED, WITH G TUBE FEEDING TOLERATED WELL ,CALL LIGHT WITHIN REACH
[2021-02-26 20:00] VITALS: BP 100/72
--- NOTE | 2021-02-26 20:00 | NUR ---
RN NOTE RECEIVED PT IN BED OBTUNDED,ON VENT VIA TRACH WITH FIO2 45%,SATING 98%, PT IS ON TELE MONITOR SHOWING ST IN 100s, PT HAS TUBE FEEDING NEPRO AT 40 ML/H NO RESIDUAL NOTED, CHECKD FOR REPLACEMENT, WILL CONTINUE WITH PLAN OF CARE.
[2021-02-26] MEDS: INSULIN GLARGINE, 100 UNIT/ML CARTRIDGE SQ SCH (21:41)
--- NOTE | 2021-02-26 21:41 | NUR ---
INSULIN LANTUS NOT GIVEN BS IS 99.
--- NOTE | 2021-02-26 23:40 | NUR ---
INSULIN REGULAR NOT GIVEN BS IS 110.
[2021-02-27] VITALS (8 sets, daily range): BP systolic 84–113; BP diastolic 61–77
[2021-02-27] MEDS: BLOOD SUGAR DIAGNOSTIC 1 EACH STRIP IN SCH ×4 (00:48→17:51)
[2021-02-27] MEDS: PIPERACILLIN /TAZOBACTAM 2.25 G in IV D5W 50 ML IV SCH ×3 (01:05→17:35)
[2021-02-27] MEDS: ALBUTEROL FS 2.5 MG/3 ML VIAL.NEB NEB SCH ×4 (01:44→20:03)
[2021-02-27] MEDS: METOCLOPRAMIDE HCL 10 MG/10 ML UDC PO SCH ×3 (05:26→21:07)
--- NOTE | 2021-02-27 06:10 | NUR ---
BS IS [address] RIBEIRO TO INFORM PT IS NPO AND IS GOING FOR PERMACATH REPLACEMENT AT 0900 AND HE IS NOT ON ANY FLUID SINCE HE IS HD PT. WAITING FOR TO CALL BACK.
[2021-02-27 06:48] LABS: BASOPHILS # (AUTO) 0.1 K/uL (0.0-0.2); BASOPHILS % (AUTO) 0.5 % (0.0-2.0); EOSINOPHILS % (AUTO) 3.1 % (0.0-6.0); HEMATOCRIT 21 % (39-51); LYMPHOCYTES # (AUTO) 1.1 K/uL (0.8-4.8); LYMPHOCYTES % (AUTO) 7.8 % (20.0-44.0); MEAN CORPUSCULAR HGB CONC 32 g/dl (31.0-36.0); MEAN CORPUSCULAR VOLUME 107 fL (80-96); MONOCYTES # (AUTO) 1.4 K/uL (0.1-1.30); MONOCYTES % (AUTO) 10.7 % (2.0-12.0); NEUTROPHILS # (AUTO) 10.5 K/uL (1.8-8.9); NEUTROPHILS % (AUTO) 77.9 % (43.0-81.0); PLATELET COUNT (AUTO) 184 K/uL (150-450); WHITE BLOOD COUNT (AUTO) 13.5 K/uL (4.3-11.0)
[2021-02-27 06:54] LABS: RED BLOOD CELL COUNT(AUTO) 1.93 MIL/uL (4.5-6.0)
[2021-02-27 06:56] LABS: HEMOGLOBIN 6.6 g/dL (13.5-17.5)
--- NOTE | 2021-02-27 07:00 | NUR ---
DR RIBEIRO DID NOT CALL BACK, I INFORMED NAGA PEREZ . PER CHARGE NURSE SOON IT IS OK TO GIVE DEXTROSE 50 SINCE PT IS GOING FOR PROCEDURE.
[2021-02-27 07:22] LABS: CALCIUM, SERUM 8.3 mg/dL (8.5-10.1); CREATININE 3.1 mg/dL (0.6-1.3); POTASSIUM 3.6 mmol/L (3.5-5.1)
--- NOTE | 2021-02-27 07:39 | NUR ---
RN NOTE REPORT GIVEN TO ONCOMING SHIFT FOR LUKE.
[2021-02-27] MEDS ORDERED: ANESTHESIA TRAY IN PYXIS 1 EA TRAY MC ONE (08:23)
[2021-02-27] MEDS ORDERED: LIDOCAINE HCL/MPF 1% 30 ML VIAL IJ ONE (08:24)
[2021-02-27] MEDS ORDERED: HEPARIN SODIUM, PORCINE 1,000 UNIT/ML VIAL ONE ×2 (08:24)
[2021-02-27] MEDS: LEVETIRACETAM SOL (5 ML) 100 MG/ML UDC GT SCH (08:34)
[2021-02-27] MEDS: VIT B CMPLX 3/FA/VIT C/BIOTIN 1 TAB TABLET GT SCH (08:34)
[2021-02-27] MEDS: PANTOPRAZOLE 40 MG/PACK PACK GT SCH (08:34)
[2021-02-27 09:46] LABS: EOSINOPHILS % (MANUAL) 3 % (0-4); LYMPHOCYTES % (MANUAL) 6 % (16-48); MONOCYTES % (MANUAL) 5 % (0-11.0); MYELOCYTES % 1 % (0-0); NEUTROPHILS % (MANUAL) 85 (42-76)
[2021-02-27 13:33] LABS: BASOPHILS # (AUTO) 0.1 K/uL (0.0-0.2); BASOPHILS % (AUTO) 0.5 % (0.0-2.0); LYMPHOCYTES # (AUTO) 0.9 K/uL (0.8-4.8); LYMPHOCYTES % (AUTO) 7.4 % (20.0-44.0); MEAN CORPUSCULAR HGB CONC 32 g/dl (31.0-36.0); MEAN CORPUSCULAR VOLUME 108 fL (80-96); MONOCYTES # (AUTO) 1.4 K/uL (0.1-1.30); MONOCYTES % (AUTO) 12.1 % (2.0-12.0); NEUTROPHILS # (AUTO) 8.9 K/uL (1.8-8.9); PLATELET COUNT (AUTO) 160 K/uL (150-450); WHITE BLOOD COUNT (AUTO) 11.5 K/uL (4.3-11.0)
[2021-02-27 13:41] LABS: HEMATOCRIT 20 % (39-51); RED BLOOD CELL COUNT(AUTO) 1.88 MIL/uL (4.5-6.0)
[2021-02-27 13:44] LABS: HEMOGLOBIN 6.5 g/dL (13.5-17.5)
[2021-02-27] MEDS: IV NS 0.9% 1,000 ML IV PRN (19:03)
--- NOTE | 2021-02-27 19:30 | NUR ---
RN NOTE RECEIVED PATIENT IN BED. PATIENT IS OBTUNDED. ON MECHANICAL VENT, SETTINGS:PORTEX 7 AC 14 TV 500 FIO2 45% PEEP5. RESPIRATIONS ARE EVEN AND UNLABORED. NO S/S SOB NOTED. NO S/S PAIN AT THIS TIME. EXTERNAL TELE MONITOR READS SINUS TACHYCARDIA HR 109. IN NO APPARENT DISTRESS IV ACCESS IN SIERRA MIDLINE RUNNING NS@100ML/HR. GTUBE IS PRESENT, RESIDUAL 15ML, RUNNING NEPRO@40ML/HR. BED IS LOW AND LOCKED,HOB ELEVATED IN SEMI FOWLERS, SIDE RAILS UP X3, WILL CONTINUE TO MONITOR THROUGHOUT SHIFT.
[2021-02-27] MEDS: INSULIN GLARGINE, 100 UNIT/ML CARTRIDGE SQ SCH (21:19)
[2021-02-28] VITALS: BP 111/76
[2021-02-28] MEDS: BLOOD SUGAR DIAGNOSTIC 1 EACH STRIP IN SCH ×3 (00:11→11:39)
[2021-02-28] MEDS: INSULIN REGULAR, HUMAN 100 UNIT/ML 3 ML VIAL SQ PRN ×2 (00:12→05:23)
[2021-02-28] MEDS: PIPERACILLIN /TAZOBACTAM 2.25 G in IV D5W 50 ML IV SCH ×2 (00:13→08:40)
[2021-02-28] MEDS: ALBUTEROL FS 2.5 MG/3 ML VIAL.NEB NEB SCH ×3 (01:37→13:41)
[2021-02-28 04:00] VITALS: BP 111/77
[2021-02-28] MEDS: METOCLOPRAMIDE HCL 10 MG/10 ML UDC PO SCH ×2 (05:08→12:14)
[2021-02-28] MEDS: IV NS 0.9% 1,000 ML IV PRN (05:09)
--- NOTE | 2021-02-28 06:29 | NUR ---
RN NOTE PATIENT RESTING IN BED. OBTUNDED. REMAINS ON MECHANICAL VENT WITH NO CHANGES IN SETTINGS. NO S/S PAIN THROUGHOUT SHIFT. TELE MONITOR READS SINUS TACHYCARDIA.NO DISTRESS. IV ACCESS MAINTAINED IN SIERRA MIDLINE RUNNING NS@100ML/HR. GTUBE RUNNING NEPRO@40ML/HR. BED REMAINS LOW AND LOCKED,HOB ELEVATED IN SEMI FOWLERS, SIDE RAILS UP X3, WILL ENDORSE TO ONCOMING SHIFT.
[2021-02-28 07:07] LABS: BASOPHILS % (AUTO) 0.4 % (0.0-2.0); EOSINOPHILS % (AUTO) 2.1 % (0.0-6.0); HEMATOCRIT 25 % (39-51); HEMOGLOBIN 8.2 g/dL (13.5-17.5); LYMPHOCYTES # (AUTO) 0.7 K/uL (0.8-4.8); LYMPHOCYTES % (AUTO) 6.6 % (20.0-44.0); MEAN CORPUSCULAR HGB CONC 33 g/dl (31.0-36.0); MEAN CORPUSCULAR VOLUME 104 fL (80-96); MONOCYTES # (AUTO) 1.1 K/uL (0.1-1.30); MONOCYTES % (AUTO) 10.2 % (2.0-12.0); NEUTROPHILS % (AUTO) 80.7 % (43.0-81.0); PLATELET COUNT (AUTO) 161 K/uL (150-450); WHITE BLOOD COUNT (AUTO) 11.2 K/uL (4.3-11.0)
[2021-02-28 07:17] LABS: CALCIUM, SERUM 8.4 mg/dL (8.5-10.1); CREATININE 2.7 mg/dL (0.6-1.3); POTASSIUM 3.9 mmol/L (3.5-5.1)
--- NOTE | 2021-02-28 07:59 | NUR ---
RT Pt received trached on mechanical ventilation with noted settings. Vent is plugged into red outlet with BVM and spare trach by bedside. Alarms are set and audible. No SOB or respiratory distress noted. Addendum: 02/28/21 at 1441 by STEVEN BARRAGAN RT Amended: Links added.
[2021-02-28 08:00] VITALS: BP 114/82
[2021-02-28] MEDS: LEVETIRACETAM SOL (5 ML) 100 MG/ML UDC GT SCH (08:40)
[2021-02-28] MEDS: PANTOPRAZOLE 40 MG/PACK PACK GT SCH (08:40)
[2021-02-28] MEDS: VIT B CMPLX 3/FA/VIT C/BIOTIN 1 TAB TABLET GT SCH (08:40)
[2021-02-28 09:59] LABS: BAND % (MANUAL) 1 % (0.0-5.0); EOSINOPHILS % (MANUAL) 2 % (0-4); LYMPHOCYTES % (MANUAL) 8 % (16-48); MONOCYTES % (MANUAL) 6 % (0-11.0); MYELOCYTES % 1 % (0-0); NEUTROPHILS % (MANUAL) 82 (42-76)
[2021-02-28 12:00] VITALS: BP 116/78
[2021-02-28 16:00] VITALS: BP 128/86
--- NOTE | 2021-02-28 18:48 | NUR ---
Patient discharge with ambulance team to [facility]. Handoff report given to Joe. Pete White RN
== END 2021-02-28 19:42 | DRG 280 ==
LOC: ER 14:16 → ICU 17:28 → TELE1 02-07 10:58 → MEDSG1 02-10 09:01 → TELE1 02-19 10:04
PROVIDERS: ADMIT Registered Nurse
PROC: 5A1955Z Respiratory Ventilation, Greater than 96 Consecutive Hours (ICD-10-PCS; principal; 2021-02-03)
PROC: 30233N1 Transfusion of Nonautologous Red Blood Cells into Peripheral Vein, Percutaneous Approach (ICD-10-PCS; 2021-02-03)
PROC: 5A1D70Z Performance of Urinary Filtration, Intermittent, Less than 6 Hours Per Day (ICD-10-PCS; 2021-02-04)
PROC: 05H933Z Insertion of Infusion Device into Right Brachial Vein, Percutaneous Approach (ICD-10-PCS; 2021-02-04)
PROC: 5A1955Z Respiratory Ventilation, Greater than 96 Consecutive Hours (ICD-10-PCS; 2021-02-19)
PROC: 05HM33Z Insertion of Infusion Device into Right Internal Jugular Vein, Percutaneous Approach (ICD-10-PCS; 2021-02-20)
PROC: B543ZZA Ultrasonography of Right Jugular Veins, Guidance (ICD-10-PCS; 2021-02-20)
PROC: 0JHD3XZ Insertion of Tunneled Vascular Access Device into Right Upper Arm Subcutaneous Tissue and Fascia, Percutaneous Approach (ICD-10-PCS; 2021-02-27)
PROC: 05HM33Z Insertion of Infusion Device into Right Internal Jugular Vein, Percutaneous Approach (ICD-10-PCS; 2021-02-27)
PROC: B543ZZA Ultrasonography of Right Jugular Veins, Guidance (ICD-10-PCS; 2021-02-27)
DX: T80.211A Bloodstream infection due to central venous catheter, initial encounter (principal); I21.A1 Myocardial infarction type 2; J96.21 Acute and chronic respiratory failure with hypoxia; G93.41 Metabolic encephalopathy; N18.6 End stage renal disease; R53.2 Functional quadriplegia; E43 Unspecified severe protein-calorie malnutrition; R65.21 Severe sepsis with septic shock; J69.0 Pneumonitis due to inhalation of food and vomit; A41.50 Gram-negative sepsis, unspecified; E87.2 Acidosis; N39.0 Urinary tract infection, site not specified; E44.0 Moderate protein-calorie malnutrition; I12.0 Hypertensive chronic kidney disease with stage 5 chronic kidney disease or end stage renal disease; Z99.11 Dependence on respirator [ventilator] status; Z16.24 Resistance to multiple antibiotics; R64 Cachexia; B18.9 Chronic viral hepatitis, unspecified; D68.59 Other primary thrombophilia; E87.0 Hyperosmolality and hypernatremia; J90 Pleural effusion, not elsewhere classified; Z99.2 Dependence on renal dialysis; Z86.73 Personal history of transient ischemic attack (TIA), and cerebral infarction without residual deficits; E11.22 Type 2 diabetes mellitus with diabetic chronic kidney disease; Y84.8 Other medical procedures as the cause of abnormal reaction of the patient, or of later complication, without mention of misadventure at the time of the procedure; Y92.89 Other specified places as the place of occurrence of the external cause; Z20.822 Contact with and (suspected) exposure to COVID-19; Z66 Do not resuscitate; Z93.0 Tracheostomy status; Z93.1 Gastrostomy status; R13.10 Dysphagia, unspecified; Z85.038 Personal history of other malignant neoplasm of large intestine; Y95 Nosocomial condition; D63.8 Anemia in other chronic diseases classified elsewhere; E78.5 Hyperlipidemia, unspecified; Z79.4 Long term (current) use of insulin; Z79.51 Long term (current) use of inhaled steroids; Z79.82 Long term (current) use of aspirin; Z79.899 Other long term (current) drug therapy; E86.1 Hypovolemia; E87.6 Hypokalemia; N40.0 Benign prostatic hyperplasia without lower urinary tract symptoms; B96.1 Klebsiella pneumoniae [K. pneumoniae] as the cause of diseases classified elsewhere; E11.65 Type 2 diabetes mellitus with hyperglycemia; R91.1 Solitary pulmonary nodule; B96.89 Other specified bacterial agents as the cause of diseases classified elsewhere
CPT/HCPCS: 31720; 36410; 36415; 36600; 71045-TC; 80048-TC; 80053-TC; 80061-TC; 80177; 80202-TC; 82248-TC; 82272-TC; 82533; 82550-TC; 82728-TC; 82803-TC; 82962-TC; 83605-TC; 83615-TC; 83735-TC; 83880; 84100-TC; 84443-TC; 84484-TC; 85025-TC; 85027-TC; 85378-TC; 85385-TC; 85610-TC; 85730-TC; 86140-TC; 86803; 86850-TC; 87040-TC; 87070-TC; 87081-TC; 87186-TC; 90935-TC; 93307-TC; 94002-TC; 94003-TC; 94640-TC; 94668-TC; 94760-TC; 94762-TC; 94799-TC; A4216; A4623; A6253; A7526; C1750; C9113; G0378; J0692; J0885; J1644; J1720; J1815; J1953; J2185; J2543; J2704; J3370; J3490; J7030; J7040; J7050; J7060; J8597; P9016; P9047; U0003

== ENCOUNTER 2021-03-29 17:26 | Inpatient (IN) | payer MEDICARE, OTHER ==
[~2021-03-29] VITALS: Ht 154.9 cm; Wt 56.3 kg
[~2021-03-29 17:26] MED LIST changes: -ASPI-1169 GT; -ATOR20TA GT; -BISA10SU11 RC; +CEFT600V IV; -CHOL400T11 GT; -DOCU-141 GT; -FAMO40TA7 GT; +HYDR-4209 PO; +INSU100V7 SQ; +LEVE500T20 GT; +MELA3TAB41 GT; -MERO500P IV; -METO-295 GT; +NA P133E RC; +ONDA-97 GT; +PANT40TA49 GT; +POLY17PO4 GT; -TOBRAMYCIN INJ; +VIT1TABL44 GT; -ZINC1CAP3 GT
[2021-03-29] MEDS ORDERED: MIDODRINE HCL (5MG) 5 MG TABLET PO SCH (18:00)
--- NOTE | 2021-03-29 18:08 | NUR ---
JUANITA FROM [facility]IS [facility], SENT BY DR. MITTAL. AWAKE BUT NON VERBAL. VENT AND TRACH DEPENDENT. NO DISTRESS NOTED. BROUGHT IN FOR LOW BP. PER REPORT, PT COMPLETED DIALYSIS AND WAS EVEN GIVEN 2L OF FLUIDS BUT PT STILL HYPOTENSIVE IN THE 80S. UPON ASSESSING PT WAS NOTED 91/61. MD WAS AT THE BEDSIDE FOR EVAL. ORDERS RECEIVED, NOTED AND CARRIED OUT. PHLEB AT BEDSIDE FOR BLOOD DRAW
--- NOTE | 2021-03-29 18:20 | NUR ---
VENT SETTING: AC16, VT500, O2 35%, +5PEEP
[2021-03-29 18:47] LABS: BASOPHILS # (AUTO) 0.1 K/uL (0.0-0.2); BASOPHILS % (AUTO) 0.6 % (0.0-2.0); EOSINOPHILS % (AUTO) 0.6 % (0.0-6.0); HEMATOCRIT 27 % (39-51); HEMOGLOBIN 8.6 g/dL (13.5-17.5); LYMPHOCYTES # (AUTO) 0.4 K/uL (0.8-4.8); LYMPHOCYTES % (AUTO) 1.9 % (20.0-44.0); MEAN CORPUSCULAR HGB CONC 32 g/dl (31.0-36.0); MEAN CORPUSCULAR VOLUME 101 fL (80-96); MONOCYTES # (AUTO) 0.7 K/uL (0.1-1.30); MONOCYTES % (AUTO) 3.6 % (2.0-12.0); NEUTROPHILS # (AUTO) 18.9 K/uL (1.8-8.9); NEUTROPHILS % (AUTO) 93.3 % (43.0-81.0); PLATELET COUNT (AUTO) 234 K/uL (150-450); RED BLOOD CELL COUNT(AUTO) 2.66 MIL/uL (4.5-6.0); WHITE BLOOD COUNT (AUTO) 20.2 K/uL (4.3-11.0)
[2021-03-29] MEDS ORDERED: GLUC1KIT IM (18:55)
[2021-03-29] MEDS ORDERED: ZINC56.713 TP (18:55)
[2021-03-29] MEDS ORDERED: HONE44PA TP (18:55)
[2021-03-29] MEDS ORDERED: PIPERACILLIN /TAZOBACTAM 3.375 G in IV D5W 50 ML IV ONE (19:00)
[2021-03-29] MEDS ORDERED: VANCOMYCIN 1 GM in IV D5W 250 ML IV ONE (19:00)
[2021-03-29] MEDS ORDERED: VANCOMYCIN 1 GM VIAL ONE (19:04)
[2021-03-29] MEDS ORDERED: PIPERACILLIN /TAZOBACTAM 3.375 G VIAL IV ONE (19:04)
[2021-03-29 19:13] LABS: CARBON DIOXIDE 27 mmol/L (21-32); CHLORIDE 99 mmol/L (98-107); GLUCOSE 113 mg/dL (74-106); SODIUM SERUM 137 mmol/L (136-145); UREA NITROGEN, BLOOD 43 mg/dL (7-18)
[2021-03-29 19:17] LABS: POTASSIUM 2.1 mmol/L (3.5-5.1)
[2021-03-29] MEDS ORDERED: POTASSIUM CL. PREMIX PERIPHER. 200 ML ONE (19:24)
--- NOTE | 2021-03-29 19:55 | NUR ---
URINE COLLECTED VIA IN AND OUT CATH WITH STRICT STERILE TECHNIQUE OBSERVED DURING PROCEDURE. URINE SENT TO LAB
[2021-03-29 20:12] LABS: BILIRUBIN,URINE SMALL (NEGATIVE); COLOR,URINE BROWN (YELLOW); LEUKOCYTE ESTERASE ,URINE Small (NEGATIVE); NITRITE, URINE Negative (NEGATIVE); PROTEIN,URINE >=300 mg/dl (NEGATIVE); UGLUCOSE Negative (NEGATIVE); UROBILINOGEN,URINE 0.2 EU/dL (0.2)
[2021-03-29 20:20] LABS: BACTERIA,URINE 1+ /HPF (None Seen); SQUAMOUS EPITHELIAL CELL,UR Few /HPF (None Seen)
[2021-03-29] MEDS: POTASSIUM CL. PREMIX PERIPHER. 50 ML IV SCH ×4 (20:30→23:52)
--- NOTE | 2021-03-29 21:01 | NUR ---
ICU 254
--- NOTE | 2021-03-29 21:21 | NUR ---
REPORT GIVEN TO ARMIDA COURTNEY FOR LUKE
--- NOTE | 2021-03-29 22:27 | NUR ---
Note maliha in ED - 03/29/21 at 2227 by KATHARINE pt transported to [facility] with emt, rt and rn at bedside w/ acls protocol. nad noted during transport.
--- NOTE | 2021-03-29 22:27 | NUR ---
pt transported to unit on [address] with emt, rt and rn at bedside w/ acls protocol. nad noted during transport.
[2021-03-29 22:30] VITALS: BP 101/66
[2021-03-29] MEDS ORDERED: ACETAMINOPHEN 650 MG/20 ML UDC- SA PATIENTS-FEVER ONLY GT PRN (22:30)
[2021-03-29] MEDS ORDERED: HYDROCODONE/APAP 5/325MG TABLET GT PRN (22:30)
[2021-03-29] MEDS ORDERED: NEPRO VAN 237 ML CAN GT SCH (22:30)
[2021-03-29] MEDS ORDERED: POLYETHYLENE GLYCOL 3350 17 GM POWD.PACK GT PRN (22:30)
[2021-03-29] MEDS ORDERED: NOREPINEPHRINE 8 MG in IV NS 0.9% 242 ML IV PRN (22:30)
[2021-03-29] MEDS ORDERED: Z GUARD REMEDY 2 OZ OINT TP PRN (22:30)
[2021-03-29] MEDS ORDERED: BISACODYL SUPP (10 MG) 10 MG/SUPP.RECT SUPP.RECT RC PRN (22:30)
[2021-03-29 22:45] VITALS: BP 93/55
[2021-03-29 23:00] VITALS: BP 99/62
[2021-03-29] MEDS ORDERED: MEROPENEM 500 MG in IV NS 0.9% 50 ML IV ONE (23:00)
[2021-03-29] MEDS ORDERED: ALBUTEROL FS 2.5 MG/3 ML VIAL.NEB NEB PRN (23:00)
--- NOTE | 2021-03-29 23:00 | NUR ---
RN NOTES ADMITTED PATIENT FROM ER DIAGNOSED WITH SEPSIS/PNA. WITH MULTIPLE MEDICAL HISTORY. NEGATIVE FOR RAPID COVID. FULL CODE. PATIENT IS NON VERBAL , OPENDS EYES NOT FOLLOWING COMMAND. PRESENT WITH TRACH PORTEX 7 CONNECTED TO VENT SETTING AC 16 TV 500 FIO2 35% AND PEEP 5 TOLERATED WELL SATURATION BETWEEN 97-100%. NO ACUTE RESPIRATORY DISTRESS WITH LOW GRADE FEVER [address] ON MONITOR WITH BBB HR 100'S IV SITE ON RIGHT HAND G 20 AND RIGHT MIDDLE FINGER G 22 WITH ONGOING KCL # 2 OF 4 BAG. SKIN CARE PROVIDED PHOT TAKEN. WILL TURN AND REPOSITION Q2H AND PRN. WILL CLOSELY MONITOR.
[2021-03-29 23:30] VITALS: BP 96/63
[2021-03-29] MEDS ORDERED: MEROPENEM 500 MG VIAL IV ONE (23:51)
[2021-03-30] VITALS (85 sets, daily range): BP systolic 79–122; BP diastolic 48–83
[2021-03-30] MEDS ORDERED: IV PREMIX NS +20MEQ KCL 1 L IV ONE (00:20)
[2021-03-30] MEDS: Potassium Chloride 20 MEQ in IV NS 0.9% 1,000 ML IV PRN ×2 (00:26→16:30)
--- NOTE | 2021-03-30 01:38 | NUR ---
PT RCVD TRACHED PORTEX 7 ON VENT WITH THE SETTINGS OF AC 16, VT 500 ,FIO2 35% PEEP 5. SUCTIONED SMALL AMOUNT OF WHITE THIN SECRETIONS. VENT PLUGGED INTO RED OUTLET , VENT ALARMS ON AND AUDIBLE. PRICE ECONOMIST DONE. AMBU BAG @ BEDSIDE. NO RESPIRATORY DISTRESS NOTED AT THIS TIME. WILL CONTINUE TO MONITOR T/O SHIFT.
--- NOTE | 2021-03-30 04:30 | NUR ---
RN NOTES [facility] COOLING MEASURES PROVIDED. BM NOTED PERICARE PROVIDED TOLERATED WELL
[2021-03-30 04:47] LABS: BASOPHILS % (AUTO) 0.1 % (0.0-2.0); EOSINOPHILS % (AUTO) 0.8 % (0.0-6.0); HEMATOCRIT 28 % (39-51); HEMOGLOBIN 9.1 g/dL (13.5-17.5); LYMPHOCYTES # (AUTO) 0.4 K/uL (0.8-4.8); LYMPHOCYTES % (AUTO) 2.2 % (20.0-44.0); MEAN CORPUSCULAR HGB CONC 32 g/dl (31.0-36.0); MEAN CORPUSCULAR VOLUME 102 fL (80-96); MONOCYTES # (AUTO) 0.7 K/uL (0.1-1.30); MONOCYTES % (AUTO) 3.8 % (2.0-12.0); NEUTROPHILS # (AUTO) 17.1 K/uL (1.8-8.9); NEUTROPHILS % (AUTO) 93.1 % (43.0-81.0); PLATELET COUNT (AUTO) 240 K/uL (150-450); RED BLOOD CELL COUNT(AUTO) 2.79 MIL/uL (4.5-6.0); WHITE BLOOD COUNT (AUTO) 18.4 K/uL (4.3-11.0)
[2021-03-30 05:02] LABS: IRON, SERUM 27 ug/dl (50-175); TOTAL IRON BINDING CAPACITY 116 ug/dl (250-450)
[2021-03-30] MEDS: NOREPINEPHRINE 8 MG in IV NS 0.9% 242 ML IV PRN (05:02)
[2021-03-30 05:04] LABS: ALANINE AMINOTRANSFERASE < 6 U/L (12-78); ALBUMIN 1.6 g/dL (3.4-5.0); ALKALINE PHOSPHATASE 375 U/L (46-116); ASPARTATE AMINOTRANSFERASE 45 U/L (15-37); BILIRUBIN,TOTAL 0.9 mg/dL (0.2-1.0); CALCIUM, SERUM 8.1 mg/dL (8.5-10.1); CARBON DIOXIDE 25 mmol/L (21-32); CHLORIDE 99 mmol/L (98-107); CREATININE 2.4 mg/dL (0.6-1.3); GLUCOSE 100 mg/dL (74-106); MAGNESIUM 2.2 mg/dL (1.8-2.4); PHOSPHORUS 1.8 mg/dL (2.5-4.9); SODIUM SERUM 138 mmol/L (136-145); UREA NITROGEN, BLOOD 54 mg/dL (7-18)
[2021-03-30] MEDS ORDERED: NOREPINEPHRINE 8MG/250ML RTU 250 ML IV ONE (05:08)
[2021-03-30 05:09] LABS: CHOLESTEROL 62 mg/dL (<200); HDL CHOLESTEROL 10 mg/dL (40-60); LDL 22 mg/dL (0-99); THYROID STIMULATING HORMONE 2.138 uIU/mL (0.358-3.74); TRIGLYCERIDES 116 mg/dL (30-150)
--- NOTE | 2021-03-30 07:11 | NUR ---
RN NOTES NO SIGNIFICANT CHANGES, TRACH AND VENT SETTING TOLERATED WELL. LOW GRADE FEVER ONGOING. LATEST ONE 99.5 TMAX 100.1 DEG FHARENHEIGHT. SUCTION MORE FREQUENT ORALLY. CONTINUE WITH IVF ORDERED AND LEVOPHED TITRATED PROTOCOL ORDERED. KEPT PT CLEAN AND COMFORTABLE IN BED. TURN AND REPOSITION QH2 AND PRN . REDUCED PRESSURE TO BONY PROMINENCE AREA. WILL ENDORSED CONTINUITY OF CARE TO AM NURSE.
--- NOTE | 2021-03-30 08:26 | NUR ---
WOUND CARE CONSULT: PT PRESENTS WITH MULTIPLE SKIN ISSUES INCLUDING STAGE 3 ULCER TO SACRUM/LEFT BUTTOCK AREA, DISCOLORATION TO RT BUTTOCK, INTACT DEEP TISSUE INJURIES TO RT FOOT AND ANKLE. ABRASIONS TO KNEES AND RASH WITH OPEN SKIN TO SCROTUM, PERINEAL AREAS, ALL PRESENT ON ADMISSION. PT IS INCONTINENT OF LOOSE STOOL. SURGICAL CONSULT MADE TO DR LANA MITTAL. RECOMMENDATIONS MADE FOR WOUND CARE AND SKIN PROTECTION. DISCUSSED WITH NURSING STAFF. FIRST STEP LOW AIRLOSS MATTRESS ORDERED. PT NOTED TO HAVE CONTRACTED LOWER EXTREMITIES. IN AGREEMENT WITH PLAN OF CARE. Addendum: 03/30/21 at 0828 by NORMA LAYTONU Amended: Links added. Addendum: 03/30/21 at 1025 by NORMA LAYTONU SCARRING NOTED TO RT EAR, PRESENT ON ADMISSION.
[2021-03-30] MEDS ORDERED: LEVETIRACETAM (250 MG) 250 MG TABLET PO SCH (09:00)
[2021-03-30] MEDS: ASPIRIN 81 MG TAB.CHEW GT SCH (09:28)
[2021-03-30] MEDS: LEVETIRACETAM SOL (5 ML) 100 MG/ML UDC GT SCH (09:28)
[2021-03-30] MEDS: VIT B CMPLX 3/FA/VIT C/BIOTIN 1 TAB TABLET GT SCH (09:28)
[2021-03-30] MEDS: PANTOPRAZOLE 40 MG/PACK PACK GT SCH (09:28)
[2021-03-30] MEDS: HYDROGEL DRESSING 90 GM TUBE TP SCH (09:28)
[2021-03-30] MEDS: CLOTRIMAZOLE 1% 15 GM TUBE TP SCH ×2 (09:29→16:30)
[2021-03-30] MEDS ORDERED: VANCOMYCIN POST DIALYSIS 500MG IV PRN (10:00)
[2021-03-30] MEDS: MEROPENEM 500 MG in IV NS 0.9% 50 ML IV SCH ×2 (10:44→21:08)
--- NOTE | 2021-03-30 10:54 | NUR ---
RN NOTE 0715: Received patient obtunded, unable to follow coomads, opens eyes. With trache to vent, tolerated settigns at this time, no respiratory distress noted. With GT intact, clamped. 2PIVs intact. On Levo 0.06, will titrate as ordered. With IVDF NS with 20K at 75. ST 100's on the monitor. Noted with clear fluid from right SC HD cath, made Md aware. Will contunue to monitor. Noted with 4 extremities contracted. 0820: S/E by wound consult, wound treatments noted and carried out. right earlobe scarring noted, taken pic and attached to chart. 0900: turned off Levo, will monitor need of pressors. 1000: Done with head CT, tolerated transportation. 1050: No any significant changes noted. kept clean, warm and dry.
[2021-03-30] MEDS ORDERED: IV NS 0.9% 500 ML IV ONE (14:30)
[2021-03-30] MEDS ORDERED: NEUTRA PHOS 1 POWD.PACKET GT ONE (15:30)
--- NOTE | 2021-03-30 16:31 | NUR ---
RN NOTE Cleaned patient again and noted excessive sweating on chest and abdomen, clear fluid not coming out from HD cath, seen also by libby RN, Carly. Kept clean and dry. Placed KCi mattress.
[2021-03-30] MEDS: NEPRO 1,000 ML BOTTLE GT PRN (17:19)
--- NOTE | 2021-03-30 17:34 | NUR ---
RT Pt received trached on mechanical ventilation with noted settings. Vent is plugged into red outlet with spare trach and BVM by bedside. No SOB or respiratory distress noted. Plan is to continue with current respiratory care orders. Addendum: 03/30/21 at 1735 by STEVEN BARRAGAN RT Amended: Links added.
--- NOTE | 2021-03-30 19:30 | NUR ---
RN NOTES Received patient obtunded, open eyes does not follow commands. on vent support setting tolerating well as ordered. No s/s of respiratory distress noted. IV'S intact for BP support Levo is running at 0.06 tolerating well will titrate as ordered, IVF NS with 20K at 75ml/hr. GT intact Nepro running at 40ml/hr with no residual noted. Clear fluid from the right HD cath still noted. Multiple skin issues see flow sheet. Safety measures in place, call light within reach. Will cont to monitor for corky.
[2021-03-31] VITALS (90 sets, daily range): BP systolic 81–125; BP diastolic 35–88
[2021-03-31 04:34] LABS: BASOPHILS # (AUTO) 0.1 K/uL (0.0-0.2); BASOPHILS % (AUTO) 0.3 % (0.0-2.0); EOSINOPHILS % (AUTO) 0.1 % (0.0-6.0); HEMATOCRIT 27 % (39-51); HEMOGLOBIN 8.6 g/dL (13.5-17.5); LYMPHOCYTES # (AUTO) 0.5 K/uL (0.8-4.8); LYMPHOCYTES % (AUTO) 2.1 % (20.0-44.0); MEAN CORPUSCULAR HGB CONC 32 g/dl (31.0-36.0); MEAN CORPUSCULAR VOLUME 103 fL (80-96); MONOCYTES # (AUTO) 0.9 K/uL (0.1-1.30); MONOCYTES % (AUTO) 3.5 % (2.0-12.0); PLATELET COUNT (AUTO) 293 K/uL (150-450); RED BLOOD CELL COUNT(AUTO) 2.63 MIL/uL (4.5-6.0); WHITE BLOOD COUNT (AUTO) 24.5 K/uL (4.3-11.0)
[2021-03-31 04:48] LABS: CALCIUM, SERUM 8.2 mg/dL (8.5-10.1); CARBON DIOXIDE 23 mmol/L (21-32); CHLORIDE 107 mmol/L (98-107); CREATININE 3.2 mg/dL (0.6-1.3); GLUCOSE 303 mg/dL (74-106); MAGNESIUM 2.3 mg/dL (1.8-2.4); POTASSIUM 3.2 mmol/L (3.5-5.1); SODIUM SERUM 144 mmol/L (136-145); UREA NITROGEN, BLOOD 76 mg/dL (7-18)
--- NOTE | 2021-03-31 06:52 | NUR ---
RN NOTES Patient continues on vent setting tolerating well, no s/s of acute distress noted. Continues on Levo, and IV fluids tolerating well. No s/s of pain or discomfort noted. GT intact Nepro running at 40ml/hr with no residual noted. Still noted with clear fluid from the right HD cath. Safety measures in place, call light within reach. Will endorse to AM nurse for corky.
[2021-03-31] MEDS ORDERED: POTASSIUM CHLORIDE 20 MEQ TAB.PRT.SR PO ONE (07:00)
[2021-03-31] MEDS: PANTOPRAZOLE 40 MG/PACK PACK GT SCH (08:19)
[2021-03-31] MEDS: VIT B CMPLX 3/FA/VIT C/BIOTIN 1 TAB TABLET GT SCH (08:19)
[2021-03-31] MEDS: ASPIRIN 81 MG TAB.CHEW GT SCH (08:19)
[2021-03-31] MEDS: LEVETIRACETAM SOL (5 ML) 100 MG/ML UDC GT SCH (08:19)
[2021-03-31] MEDS: MEROPENEM 500 MG in IV NS 0.9% 50 ML IV SCH ×2 (08:20→20:42)
[2021-03-31] MEDS: HYDROGEL DRESSING 90 GM TUBE TP PRN (08:20)
[2021-03-31] MEDS: CLOTRIMAZOLE 1% 15 GM TUBE TP SCH ×2 (08:21→16:05)
[2021-03-31] MEDS: Potassium Chloride 20 MEQ in IV NS 0.9% 1,000 ML IV PRN ×2 (08:21→23:02)
[2021-03-31] MEDS ORDERED: POTASSIUM CHLORIDE 20 MEQ POWDER PACKET GT ONE (09:00)
[2021-03-31 09:24] LABS: BILIRUBIN,DIRECT 0.5 mg/dL (0.0-0.2)
[2021-03-31] MEDS: HYDROGEL DRESSING 90 GM TUBE TP SCH (10:01)
--- NOTE | 2021-03-31 11:15 | NUR ---
RN NOTE 0715: Received patient opens eyes but unable to follow commands. With trache to vent, tolerated settings well. No respiratory distress noted at this time. With NELIDA midline intact. On Levo @ 0.06, will titrate as ordered. IVF with KCl infusing as ordered. ST 100-110's on the monitor. With GT intact, Feeding tolerated. Kept HOB elevated. 1000: S/E by Dr. Byrnes, no new order at this time. 1100: Minh called for MRSA blood, made ID aware, on Vanco and Merrem. Placed on iso prec.
[2021-03-31] MEDS: NOREPINEPHRINE 8 MG in IV NS 0.9% 242 ML IV PRN (14:18)
[2021-03-31] MEDS ORDERED: EPOETIN ALFA (10,000 UNIT) 10,000 UNIT/ML VIAL IV ONE (15:00)
--- NOTE | 2021-03-31 18:01 | NUR ---
RN NOTE HD nurse reported done with HD, with 1900mL out. Patient tolerated with pressors. Vanco given as ordered.
--- NOTE | 2021-03-31 19:30 | NUR ---
RN NOTE RECEIVED PT AWAKE, DOES NOT FOLLOW ANY COMMANDS. WITH TRACH ON VENT, NO S/SX OF DISTRESS NOTED. PT ON LEVOPHED AT O.1 MCG/KG/MIN AND NS W/ 20MEQ K, IV PATENT AND INTACT. GT IN PLACE AND PATENT, NO RESIDUAL NOTED. ON GT FEEDING OF NEPRO AT 40ML/HR. KEPT HOB ELEVATED. HD CATH ON R SUBCLAVIAN INTACT. TELE SHOWS SINUS TACH WITH HT OF 111. WILL CONTINUE TO MONITOR.
[2021-03-31] MEDS: ACETAMINOPHEN 325 MG TABLET MC PRN (20:43)
--- NOTE | 2021-03-31 21:15 | NUR ---
RN NOTE NOTED PT SWEATING, RECHECKED BODY TEMP AT 2039, WAS 101. COOL BATH, TYLENOL GIVEN.
[2021-04-01] VITALS (64 sets, daily range): BP systolic 89–119; BP diastolic 46–80
[2021-04-01] MEDS: NEPRO 1,000 ML BOTTLE GT PRN (00:43)
[2021-04-01 05:12] LABS: BASOPHILS # (AUTO) 0.1 K/uL (0.0-0.2); BASOPHILS % (AUTO) 0.4 % (0.0-2.0); EOSINOPHILS % (AUTO) 0.3 % (0.0-6.0); HEMATOCRIT 27 % (39-51); HEMOGLOBIN 8.5 g/dL (13.5-17.5); LYMPHOCYTES # (AUTO) 0.8 K/uL (0.8-4.8); LYMPHOCYTES % (AUTO) 3.1 % (20.0-44.0); MEAN CORPUSCULAR HGB CONC 31 g/dl (31.0-36.0); MEAN CORPUSCULAR VOLUME 103 fL (80-96); MONOCYTES % (AUTO) 4.2 % (2.0-12.0); NEUTROPHILS # (AUTO) 22.7 K/uL (1.8-8.9); PLATELET COUNT (AUTO) 292 K/uL (150-450); RED BLOOD CELL COUNT(AUTO) 2.63 MIL/uL (4.5-6.0); WHITE BLOOD COUNT (AUTO) 24.6 K/uL (4.3-11.0)
[2021-04-01 05:21] LABS: CALCIUM, SERUM 8.3 mg/dL (8.5-10.1); CREATININE 2.6 mg/dL (0.6-1.3); MAGNESIUM 2.1 mg/dL (1.8-2.4); PHOSPHORUS 2.6 mg/dL (2.5-4.9); POTASSIUM 4.4 mmol/L (3.5-5.1)
[2021-04-01] MEDS: ACETAMINOPHEN 325 MG TABLET MC PRN (06:09)
--- NOTE | 2021-04-01 06:15 | NUR ---
RN NOTE NOTED WITH INCREASED HR, TEMP AT 100.5. TYLENOL GIVEN.
--- NOTE | 2021-04-01 06:55 | NUR ---
RN NOTE PT TOLERATING VENT SETTINGS. NO SIGNS OF RESP DISTRESS NOTED. CONTINUE ON GT FEEDING OF NEPRO, TOLERATING WELL, NO RESIDUALS NOTED. KEPT HOB ELEVATED. PT CONTINUE ON IVFLUIDS AND LEVO AT 0.1, BP STABLE. WOUND DRESSINGS INTACT, REPOSITIONED Q2H. ALL SAFETY MEASURES MAINTAINED. WILL ENDORSE TO NEXT SHIFT NURSE FOR LUKE.
--- NOTE | 2021-04-01 07:46 | NUR ---
RN NOTE: PT RECIEVED OBTUNDED, ON VENT-TRAC, SETTINGS TOLERATING WELL. NO BREATHING DISTRESS NOTED AT THIS TIME. TUBE FEEDING TOLERATING WELL. ASPIRATION PRECAUTIONS OBSERVED. IV CATHETERS, D/C/I- RUNNING WITH IV FLUIDS ORDERED. SAFETY MEASURES OBSERVED. CONTINUE TO MONITOR.
[2021-04-01] MEDS: MEROPENEM 500 MG in IV NS 0.9% 50 ML IV SCH ×2 (08:54→20:44)
[2021-04-01] MEDS: LEVETIRACETAM SOL (5 ML) 100 MG/ML UDC GT SCH (08:54)
[2021-04-01] MEDS: VIT B CMPLX 3/FA/VIT C/BIOTIN 1 TAB TABLET GT SCH (08:54)
[2021-04-01] MEDS: ASPIRIN 81 MG TAB.CHEW GT SCH (08:54)
[2021-04-01] MEDS: PANTOPRAZOLE 40 MG/PACK PACK GT SCH (08:54)
[2021-04-01] MEDS: CLOTRIMAZOLE 1% 15 GM TUBE TP SCH ×2 (08:55→16:58)
[2021-04-01] MEDS: HYDROGEL DRESSING 90 GM TUBE TP SCH (08:55)
[2021-04-01] MEDS: Potassium Chloride 20 MEQ in IV NS 0.9% 1,000 ML IV PRN (12:06)
[2021-04-01] MEDS: NOREPINEPHRINE 8 MG in IV NS 0.9% 242 ML IV PRN (12:07)
--- NOTE | 2021-04-01 14:40 | NUR ---
RN Note: HD cath from Rt subclavian, removed by Jorge Cabrera at bedside. Applied pressure dressing. Continue to monitor.
--- NOTE | 2021-04-01 19:55 | NUR ---
RN NOTE REPORTED PT BLOOD GLUCOSE FROM AM LABS TO DR CARRASCO. WITH NEW ORDER OF SLIDING SCALE, CHARGE NURSE MADE AWARE.
[2021-04-01] MEDS ORDERED: DEXTROSE 50%-WATER 50 ML DISP.SYRIN IV PRN (20:00)
--- NOTE | 2021-04-01 20:00 | NUR ---
RN NOTE RECEIVED IN BED, OBTUNDED. WITH TRACH ON VENT, NO S/SX OF DISTRESS NOTED O2 SAT AT 95%. PT ON LEVOPHED AT O.1 MCG/KG/MIN AND IVF NS W/ 20MEQ K, IV PATENT AND INTACT. GT IN PLACE AND PATENT, NO RESIDUAL NOTED. ON GT FEEDING OF NEPRO AT 40ML/HR. KEPT HOB ELEVATED. HD CATH WERE REMOVED THIS AFTERNOON, SITE DRESSING DRY WITH NO BLEEDING NOTED. TELE SHOWS SINUS TACH WITH HR OF 121. WILL CONTINUE TO MONITOR.
[2021-04-01] MEDS ORDERED: IV PREMIX NS +20MEQ KCL 1 L IV ONE (22:32)
[2021-04-01] MEDS ORDERED: INSULIN REGULAR, HUMAN 100 UNIT/ML 3 ML VIAL ONE (22:33)
[2021-04-01] MEDS: BLOOD SUGAR DIAGNOSTIC 1 EACH STRIP IN SCH (23:19)
[2021-04-01] MEDS: INSULIN REGULAR, HUMAN 100 UNIT/ML 3 ML VIAL SQ PRN (23:44)
[2021-04-02] VITALS (91 sets, daily range): BP systolic 93–123; BP diastolic 54–85
[2021-04-02] MEDS: Potassium Chloride 20 MEQ in IV NS 0.9% 1,000 ML IV PRN (02:02)
[2021-04-02] MEDS: NEPRO 1,000 ML BOTTLE GT PRN (03:58)
[2021-04-02] MEDS: ACETAMINOPHEN 325 MG TABLET MC PRN ×3 (04:17→22:48)
--- NOTE | 2021-04-02 04:20 | NUR ---
RN NOTE NOTED TEMP 101.8, COOLING MEASURES WERE APPLIED. TYLENOL GIVEN. WILL CONTINUE TO MONITOR.
[2021-04-02] MEDS: IV NS 0.9% 250 ML IV PRN (04:30)
[2021-04-02 04:49] LABS: BASOPHILS % (AUTO) 0.1 % (0.0-2.0); EOSINOPHILS % (AUTO) 0.2 % (0.0-6.0); HEMATOCRIT 24 % (39-51); HEMOGLOBIN 7.7 g/dL (13.5-17.5); LYMPHOCYTES # (AUTO) 0.6 K/uL (0.8-4.8); LYMPHOCYTES % (AUTO) 2.3 % (20.0-44.0); MEAN CORPUSCULAR HGB CONC 32 g/dl (31.0-36.0); MEAN CORPUSCULAR VOLUME 102 fL (80-96); MONOCYTES # (AUTO) 0.9 K/uL (0.1-1.30); MONOCYTES % (AUTO) 3.3 % (2.0-12.0); NEUTROPHILS # (AUTO) 26.2 K/uL (1.8-8.9); NEUTROPHILS % (AUTO) 94.1 % (43.0-81.0); PLATELET COUNT (AUTO) 259 K/uL (150-450); RED BLOOD CELL COUNT(AUTO) 2.38 MIL/uL (4.5-6.0); WHITE BLOOD COUNT (AUTO) 27.9 K/uL (4.3-11.0)
[2021-04-02 04:57] LABS: CALCIUM, SERUM 8.3 mg/dL (8.5-10.1); CREATININE 2.1 mg/dL (0.6-1.3); PHOSPHORUS 1.9 mg/dL (2.5-4.9); POTASSIUM 4.4 mmol/L (3.5-5.1)
[2021-04-02] MEDS: INSULIN REGULAR, HUMAN 100 UNIT/ML 3 ML VIAL SQ PRN ×4 (06:32→23:40)
[2021-04-02] MEDS: BLOOD SUGAR DIAGNOSTIC 1 EACH STRIP IN SCH ×4 (06:35→23:36)
--- NOTE | 2021-04-02 07:00 | NUR ---
RN NOTE PT TEMP AT 99.8 NOW NO SIGNS OF DISTRESS NOTE. PT TOLERATING VENT SETTINGS. CONTINUE ON GT FEEDING OF NEPRO, TOLERATING WELL, NO RESIDUALS NOTED. KEPT HOB ELEVATED. PT CONTINUE ON IVFLUIDS NS W/ K 20MEQ AND LEVO AT 0.06 MCG/KG/MIN, TITRATED PER PROTOCOL. FSBS AT 231, INSULIN COVERAGE GIVEN ORDERD. WOUND DRESSINGS INTACT, REPOSITIONED Q2H. ALL SAFETY MEASURES MAINTAINED. WILL ENDORSE TO NEXT SHIFT NURSE FOR LUKE.
--- NOTE | 2021-04-02 07:00 | NUR ---
RN NOTE RECEIVED ON BED, OBTUNDED. TRACH / VENT DEPENDENT , TOLERATING CURRENT VENT SETTING WELL, TRACH CARE DONE, ON TELE ST HR IN 100'S , PT ON LEVOPHED AT O.06 MCG/KG/MIN FOR BP SUPPORT, IVF AT 75CC /HR , L UPPER ARM MIDLINE SITE CLEAN,DRY AND INTACT, GT IN PLACE AND PATENT, NO RESIDUAL NOTED. ON GT FEEDING OF NEPRO AT 40ML/HR. KEPT HOB ELEVATED. WILL CONTINUE TO MONITOR.
--- NOTE | 2021-04-02 07:50 | NUR ---
RT PATIENT REC'D TRACHED ON [facility] VENT PER MD ORDERS MINA WELL. TRACH SECURE AND IN PROPER POSITION. VENT SETTINGS AND ALARMS CHECKED + AUDIBLE. AMBU BAG AT [facility]. PATIENT REMAINS AWAKE, NON VERBAL, NON RESPONSIVE TO COMMANDS. NO SOB NOTED. Addendum: 04/04/21 at 1348 by ALEXEI AIKEN RT Amended: Links added.
[2021-04-02] MEDS ORDERED: NEUTRA PHOS 1 POWD.PACKET PO ONE (08:00)
[2021-04-02] MEDS ORDERED: NEUTRA PHOS 1 POWD.PACKET GT ONE (08:00)
[2021-04-02] MEDS: LEVETIRACETAM SOL (5 ML) 100 MG/ML UDC GT SCH (08:06)
[2021-04-02] MEDS: PANTOPRAZOLE 40 MG/PACK PACK GT SCH (08:06)
[2021-04-02] MEDS: VIT B CMPLX 3/FA/VIT C/BIOTIN 1 TAB TABLET GT SCH (08:07)
[2021-04-02] MEDS: MIDODRINE HCL (5MG) 5 MG TABLET GT SCH ×3 (08:07→16:03)
[2021-04-02] MEDS: MEROPENEM 500 MG in IV NS 0.9% 50 ML IV SCH ×2 (08:07→22:48)
[2021-04-02] MEDS: ASPIRIN 81 MG TAB.CHEW GT SCH (08:07)
[2021-04-02] MEDS: CLOTRIMAZOLE 1% 15 GM TUBE TP SCH ×2 (08:08→16:04)
[2021-04-02] MEDS: HYDROGEL DRESSING 90 GM TUBE TP SCH (08:09)
[2021-04-02] MEDS: NOREPINEPHRINE 8 MG in IV NS 0.9% 242 ML IV PRN (11:16)
--- NOTE | 2021-04-02 12:17 | NUR ---
RN NOTES ZHANNA PEREZ NOITFED REGRADING BLOOD CULTURE RESULTS .
--- NOTE | 2021-04-02 13:30 | NUR ---
RN NOTES URINE SAMPLE SENT TO LAB PER CONTACT AGENT ORDER .
--- NOTE | 2021-04-02 15:00 | NUR ---
RN NOTES LEVO DRIP DECREASED TO .04MCG/KG/MIN AT THIS TIME, CONTINUE TO MONITOR.
--- NOTE | 2021-04-02 18:18 | NUR ---
RN NOTE T= 99.4 AT THIS TIME, PT TOLERATING VENT SETTINGS WELL , TF AT 40CC/HR RUNNING , NO RESIDUAL NOTED, LEVO AT 0.04 MCG/KG/MIN, TITRATED PER PROTOCOL. LEFT UPPER ARM MIDLINE SITE CLEAN,DRY AND INTACT, SR UP x3, CALL LIGHT WITHIN EASY REACH, BED LOCKED AND IN LOWEST POSITION, WILL ENDORSE TO POULTRY SCIENTIST NURSE FOR CONTINUITY OF CARE ALL SAFETY MEASURES MAINTAINED.
--- NOTE | 2021-04-02 22:35 | NUR ---
HOT AIR FURNACE INSTALLER AND REPAIRER. INITIAL ASSESSMENT. RECEIVED THE PT REST ON THE BED. TRACH TO VENT CONNECTED. PORTEX #7, AC 16, TV 500, FIO2 30%. PEEP 5. SAT 989%.O ACUTE DISTRESS NOTED. CLINICAL ADMISSIONS MANAGER SHOWING S TACH. TEMPERATURE IS 100.5. HOB ELEVATED. GT INTACT, NEPRO 40 ML/H, WILLEM LOWER AND UPPER EXTREMITY CONTRACTED.IV LT UPPER ARM MID LINE. LEVOPHED 0.04MCG/KG/MIN, TEMPERATURE IS 100.5. WILL CONTINUE TO MONITOR VITALS.WILL CONTINUE TO MONITOR VITAL.
[2021-04-03] VITALS (88 sets, daily range): BP systolic 81–127; BP diastolic 45–85
--- NOTE | 2021-04-03 03:25 | NUR ---
agricultural extension educator. am care given. remaining same vent setting tolerated well. sat 98%. no acute distress noted. electric motor mechanic showinh gt feeding tolerated well. hob elevated. will continue to monitor vitals.
[2021-04-03 04:42] LABS: BASOPHILS # (AUTO) 0.1 K/uL (0.0-0.2); BASOPHILS % (AUTO) 0.5 % (0.0-2.0); EOSINOPHILS % (AUTO) 1.3 % (0.0-6.0); HEMATOCRIT 26 % (39-51); HEMOGLOBIN 8.1 g/dL (13.5-17.5); LYMPHOCYTES # (AUTO) 1.3 K/uL (0.8-4.8); LYMPHOCYTES % (AUTO) 5.6 % (20.0-44.0); MEAN CORPUSCULAR HGB CONC 31 g/dl (31.0-36.0); MEAN CORPUSCULAR VOLUME 104 fL (80-96); MONOCYTES # (AUTO) 1.1 K/uL (0.1-1.30); MONOCYTES % (AUTO) 4.9 % (2.0-12.0); NEUTROPHILS # (AUTO) 19.9 K/uL (1.8-8.9); NEUTROPHILS % (AUTO) 87.7 % (43.0-81.0); PLATELET COUNT (AUTO) 259 K/uL (150-450); WHITE BLOOD COUNT (AUTO) 22.7 K/uL (4.3-11.0)
[2021-04-03 04:55] LABS: CALCIUM, SERUM 8.4 mg/dL (8.5-10.1); CREATININE 2.7 mg/dL (0.6-1.3); MAGNESIUM 2.1 mg/dL (1.8-2.4); PHOSPHORUS 3.1 mg/dL (2.5-4.9)
[2021-04-03] MEDS: ACETAMINOPHEN 325 MG TABLET MC PRN ×3 (05:48→18:43)
[2021-04-03] MEDS: IV NS 0.9% 250 ML IV PRN (05:48)
[2021-04-03] MEDS: INSULIN REGULAR, HUMAN 100 UNIT/ML 3 ML VIAL SQ PRN ×4 (05:56→23:52)
[2021-04-03] MEDS: BLOOD SUGAR DIAGNOSTIC 1 EACH STRIP IN SCH ×4 (05:57→23:47)
--- NOTE | 2021-04-03 07:00 | NUR ---
RN NOTE RECEIVED ON BED, OBTUNDED. TRACH / VENT DEPENDENT , TOLERATING CURRENT VENT SETTING WELL, TRACH CARE DONE, ON TELE ST HR IN 100'S , PT ON LEVOPHED FOR BP SUPPORT, L UPPER ARM MIDLINE SITE CLEAN,DRY AND INTACT, GT IN PLACE AND PATENT, NO RESIDUAL NOTED. ON GT FEEDING OF NEPRO AT 40ML/HR. KEPT HOB ELEVATED. WILL CONTINUE TO MONITOR.
[2021-04-03] MEDS: NEPRO 1,000 ML BOTTLE GT PRN (07:09)
--- NOTE | 2021-04-03 07:55 | NUR ---
RT PATIENT REC'D TRACHED ON [facility] VENT PER MD ORDERS MINA WELL. TRACH SECURE AND IN PROPER POSITION. VENT SETTINGS AND ALARMS CHECKED + AUDIBLE. AMBU BAG AT [facility]. PATIENT REMAINS AWAKE, NON VERBAL, NON RESPONSIVE TO COMMANDS. NO SOB NOTED. Addendum: 04/04/21 at 1348 by ALEXEI AIKEN RT Amended: Links added.
[2021-04-03] MEDS: LEVETIRACETAM SOL (5 ML) 100 MG/ML UDC GT SCH (08:27)
[2021-04-03] MEDS: ASPIRIN 81 MG TAB.CHEW GT SCH (08:27)
[2021-04-03] MEDS: PANTOPRAZOLE 40 MG/PACK PACK GT SCH (08:27)
[2021-04-03] MEDS: VIT B CMPLX 3/FA/VIT C/BIOTIN 1 TAB TABLET GT SCH (08:27)
[2021-04-03] MEDS: MEROPENEM 500 MG in IV NS 0.9% 50 ML IV SCH (08:28)
[2021-04-03] MEDS: MIDODRINE HCL (5MG) 5 MG TABLET GT SCH ×3 (08:28→17:13)
[2021-04-03] MEDS: CLOTRIMAZOLE 1% 15 GM TUBE TP SCH ×2 (08:29→17:14)
[2021-04-03] MEDS: HYDROGEL DRESSING 90 GM TUBE TP SCH (08:29)
[2021-04-03] MEDS ORDERED: IV NS 0.9% 500 ML IV ONE (09:30)
[2021-04-03] MEDS: NOREPINEPHRINE 8 MG in IV NS 0.9% 242 ML IV PRN (12:32)
--- NOTE | 2021-04-03 14:00 | NUR ---
RN NOTES TRACH SUCTIONING DONE , CONTINUE TO MONITOR.
--- NOTE | 2021-04-03 15:30 | NUR ---
RT PER DR CRESPO PEEP LOWERED TO ZERO Addendum: 04/03/21 at 1612 by ALEXEI AIKEN RT Amended: Links added.
--- NOTE | 2021-04-03 16:00 | NUR ---
RN NOTES ZHANNA PEREZ NOTIFIED REGARDING BLOOD CULTURE RESULTS.
--- NOTE | 2021-04-03 18:46 | NUR ---
RN NOTE T= 100.9 RECTALLY , AT THIS TIME, TYLENOL GIVEN , COOLING MEASURES IN PLACED, PT TOLERATING VENT SETTINGS WELL , TF AT 40CC/HR RUNNING , NO RESIDUAL NOTED, LEVO AT 0.06 MCG/KG/MIN, TITRATED PER PROTOCOL. LEFT UPPER ARM MIDLINE SITE CLEAN,DRY AND INTACT, SR UP x3, CALL LIGHT WITHIN EASY REACH, BED LOCKED AND IN LOWEST POSITION, WILL ENDORSE TO BROOM WORKER NURSE FOR CONTINUITY OF CARE , ALL SAFETY MEASURES MAINTAINED.
--- NOTE | 2021-04-03 19:30 | NUR ---
RN NOTE RECEIVED PATIENT IN BED. OBTUNDED, OPENS EYS. ON MECHANICAL VENT. NO RESP DISTRESS. NO S/S PAIN AT THIS TIME. TELE MONITOR READS SINUS TACH HR 120 WITH OCCASIONAL PVC. IN NO APPARENT DISTRESS. IV ACCESS IN NELIDA MIDLINE RUNNING LEVO AT 0.06MCG/KG/MIN. GTUBE IS PRESENT, NO RESIDUAL, RUNNING NEPRO @40ML/HR. BED IS LOW AND LOCKED, HOB ELEVTAED IN SEMI FOWLERS, SIDE RAILS UP X3, WILL CONTINUE TO MONITOR THOUGHOUT SHIFT.
[2021-04-03 20:02] LABS: THYROID STIMULATING HORMONE 2.569 uIU/mL (0.358-3.74)
[2021-04-04] VITALS (75 sets, daily range): BP systolic 90–123; BP diastolic 61–79
[2021-04-04] MEDS: ACETAMINOPHEN 325 MG TABLET MC PRN (01:43)
[2021-04-04] MEDS: IV NS 0.9% 250 ML IV PRN (04:23)
[2021-04-04 04:32] LABS: BASOPHILS # (AUTO) 0.1 K/uL (0.0-0.2); BASOPHILS % (AUTO) 0.4 % (0.0-2.0); EOSINOPHILS % (AUTO) 1.8 % (0.0-6.0); HEMATOCRIT 25 % (39-51); HEMOGLOBIN 7.7 g/dL (13.5-17.5); LYMPHOCYTES # (AUTO) 1.2 K/uL (0.8-4.8); LYMPHOCYTES % (AUTO) 5.6 % (20.0-44.0); MEAN CORPUSCULAR HGB CONC 31 g/dl (31.0-36.0); MEAN CORPUSCULAR VOLUME 106 fL (80-96); MONOCYTES # (AUTO) 1.1 K/uL (0.1-1.30); NEUTROPHILS # (AUTO) 19.2 K/uL (1.8-8.9); NEUTROPHILS % (AUTO) 87.2 % (43.0-81.0); PLATELET COUNT (AUTO) 248 K/uL (150-450); RED BLOOD CELL COUNT(AUTO) 2.35 MIL/uL (4.5-6.0)
[2021-04-04 04:42] LABS: CALCIUM, SERUM 8.6 mg/dL (8.5-10.1); CREATININE 3.2 mg/dL (0.6-1.3); MAGNESIUM 2.3 mg/dL (1.8-2.4); PHOSPHORUS 3.6 mg/dL (2.5-4.9); POTASSIUM 4.7 mmol/L (3.5-5.1)
[2021-04-04] MEDS: BLOOD SUGAR DIAGNOSTIC 1 EACH STRIP IN SCH ×4 (06:18→23:25)
[2021-04-04] MEDS: INSULIN REGULAR, HUMAN 100 UNIT/ML 3 ML VIAL SQ PRN ×4 (06:19→23:27)
[2021-04-04 06:31] LABS: BAND % (MANUAL) 2 % (0.0-5.0); EOSINOPHILS % (MANUAL) 3 % (0-4); LYMPHOCYTES % (MANUAL) 4 % (16-48); MONOCYTES % (MANUAL) 2 % (0-11.0); NEUTROPHILS % (MANUAL) 88 (42-76); REACTIVE LYMPHOCYTES 1 % (0-0)
--- NOTE | 2021-04-04 07:09 | NUR ---
RN NOTE PATIENT RESTING IN BED. OBTUNDED. ON MECHANICAL VENT. NO RESP DISTRESS. NO S/S PAIN . TELE MONITOR READS SINUS TACH WITH OCCASIONAL PVC. NO DISTRESS. TEMP MAX IS 100.9 TYLENOL GIVEN TEMP NOW 99.6. IV IN NELIDA MIDLINE RUNNING LEVO AT 0.04MCG/KG/MIN. GTUBE RUNNING NEPRO @40ML/HR. BED IS LOW AND LOCKED, HOB ELEVTAED IN SEMI FOWLERS, SIDE RAILS UP X3, WILL ENDORSE TO ONCOMING SHIFT.
--- NOTE | 2021-04-04 07:50 | NUR ---
RT PATIENT REC'D TRACHED ON [facility] VENT PER MD ORDERS MINA WELL. TRACH SECURE AND IN PROPER POSITION. VENT SETTINGS AND ALARMS CHECKED + AUDIBLE. AMBU BAG AT [facility]. PATIENT REMAINS AWAKE, NON VERBAL, NON RESPONSIVE TO COMMANDS. NO SOB NOTED. Addendum: 04/04/21 at 1348 by ALEXEI AIKEN RT Amended: Links added.
--- NOTE | 2021-04-04 08:00 | NUR ---
SUPERVISING AIRPLANE PILOT RECEIVED PT OBTUNDED, DOES NOT FOLLOW COMMANDS, DOES NOT TRACK. TRACH INTACT, CONNECTED TO VENT. TOLERATING VENTS SETTINGS WELL WITH SPO2 CONSISTENTLY 98%. RESP EVEN AND UNLABORED. SUCTIONED SMALL AMOUNT THICK VARGAS SECRETIONS FROM TRACH. GT INTACT WITH CONTINUOUS TUBE FEEDING. 10 ML RESIDUAL ASPIRATED WITH SYRINGE, FLUSHED GT WITH 40 ML WATER FOR PATENCY. ON FIRST STEP MATTRESS. WOUNDS COVERED WITH DRESSINGS.
[2021-04-04] MEDS: ASPIRIN 81 MG TAB.CHEW GT SCH (08:37)
[2021-04-04] MEDS: VIT B CMPLX 3/FA/VIT C/BIOTIN 1 TAB TABLET GT SCH (08:37)
[2021-04-04] MEDS: PANTOPRAZOLE 40 MG/PACK PACK GT SCH (08:37)
[2021-04-04] MEDS: LEVETIRACETAM SOL (5 ML) 100 MG/ML UDC GT SCH (08:37)
[2021-04-04] MEDS: MIDODRINE HCL (5MG) 5 MG TABLET GT SCH ×3 (08:38→17:00)
[2021-04-04] MEDS: CLOTRIMAZOLE 1% 15 GM TUBE TP SCH ×2 (08:39→17:00)
[2021-04-04] MEDS: HYDROGEL DRESSING 90 GM TUBE TP PRN (08:39)
[2021-04-04] MEDS: HYDROGEL DRESSING 90 GM TUBE TP SCH (08:40)
--- NOTE | 2021-04-04 12:00 | NUR ---
ASSISTANT DIRECTOR SUCTIONED SMALL AMOUNT THICK VARGAS SECRETIONS. MIDLINE DRESSING COMING OFF, DIFFICULT TO FLUSH LINE. DRESSING REMOVED, PULLED LINE OUT 2 CM, ABLE TO ASPIRATED BLOOD EASILY, LINE FLUSHED WITH NS FOR CLEARANCE. AREA CLEANED AND NEW CLEAR DRESSING CHANGED.
--- NOTE | 2021-04-04 12:00 | NUR ---
VP [employer] ACCUCHECK >300. REG INSULIN GIVEN PER SCALE.
[2021-04-04] MEDS: NEPRO 1,000 ML BOTTLE GT PRN (12:12)
--- NOTE | 2021-04-04 12:30 | NUR ---
Endorsement received from charge nurse for care of the patient. Patient received alert and with eyes open. No grimacing or moaning noted. Patient noted with left upper arm midline tko. On g tubetol well. Per report patient is off of vasopressors. Will continue tomonitor. call light with in reach.
--- NOTE | 2021-04-04 19:15 | NUR ---
RECEIVED PT ON BED OBTUNDED, EYES OPEN BUT NOT FOLLOWING ANY COMMAND, ON TRACH/VENT SETTING PER MD FIO2 30% SPO2 99% HAVE SIERRA ML PATENT AND FLUSHED, HAVE GTUBE RESIDUAL 0 ML WITH RUNING JEVITY @ 40ML/HR INFUSING WELL, BED AT LOWEST POSITION AND LOCKED SIDE RAILS UP X2 WILL CONT TO MONITOR
--- NOTE | 2021-04-04 19:49 | NUR ---
FARMWORKER CLOSING NOTES Patient is in bed and in good stable condition. Patient is on g tube , evelin well with no residual today. No c/o pain or discomfort. Patient's midline discontinued to left arm and new one re inserted to right arm. Tip of midline sent to lab for culture. Called lab and spoke to parris for specimen cotton picking machine operator. Patient's hob kept elevated. Patient had bm x 2 during shift. Turned and repositioned q2h and prn. Call light with in reach.Report given to Bryan HUFFMAN for LUKE.
[2021-04-05] VITALS (28 sets, daily range): BP systolic 99–123; BP diastolic 61–75
--- NOTE | 2021-04-05 00:58 | NUR ---
PT ON BED ON STABLE CONDITION ON TRACH/VENT SETTING PER MD NO SIGN OF RESPIRATORY DISTRESS, NO PAIN NOTED, BED MAINTAIN ON LOWEST POSITION AND LOCKED SIDE RAILS UP X2 WILL CONT TO MONITOR
[2021-04-05] MEDS: BLOOD SUGAR DIAGNOSTIC 1 EACH STRIP IN SCH ×3 (05:38→18:23)
[2021-04-05] MEDS: INSULIN REGULAR, HUMAN 100 UNIT/ML 3 ML VIAL SQ PRN ×3 (05:40→18:27)
--- NOTE | 2021-04-05 06:09 | NUR ---
PT REMAINS ON BED STILL OBTUNDED, OPEN EYES BUT NOT FOLLOWING ANY COMMAND, STILL ON TRACH/VENT SETTING PER MD FIO2 30% SPO2 97% NO SIGN OF RESPIRATORY DISTRESS, BEDSIDE MONITOR READS SINUS TACHY 100'S NO SIGNIFICANT CHANGES ON CONDITION NOTED, ALL NEEDS ATTENDED, WOUND TREATMENT DONE, STILL ON NEPHRO @ 40ML/HR TOLERATING WELL RESIDUAL 0ML, BED ON LOWEST POSITION AND LOCKED SIDE RAILS UP X2 WILL CONT TO MONITOR
[2021-04-05] MEDS: ASPIRIN 81 MG TAB.CHEW GT SCH (08:16)
[2021-04-05] MEDS: LEVETIRACETAM SOL (5 ML) 100 MG/ML UDC GT SCH (08:16)
[2021-04-05] MEDS: PANTOPRAZOLE 40 MG/PACK PACK GT SCH (08:16)
[2021-04-05] MEDS: MIDODRINE HCL (5MG) 5 MG TABLET GT SCH ×3 (08:16→18:23)
[2021-04-05] MEDS: CLOTRIMAZOLE 1% 15 GM TUBE TP SCH ×2 (08:17→18:19)
[2021-04-05] MEDS: HYDROGEL DRESSING 90 GM TUBE TP SCH (08:17)
[2021-04-05] MEDS: VIT B CMPLX 3/FA/VIT C/BIOTIN 1 TAB TABLET GT SCH (08:28)
[2021-04-05 08:44] LABS: BASOPHILS # (AUTO) 0.3 K/uL (0.0-0.2); BASOPHILS % (AUTO) 1.3 % (0.0-2.0); EOSINOPHILS % (AUTO) 1.9 % (0.0-6.0); HEMATOCRIT 26 % (39-51); HEMOGLOBIN 7.9 g/dL (13.5-17.5); LYMPHOCYTES # (AUTO) 1.4 K/uL (0.8-4.8); LYMPHOCYTES % (AUTO) 6.5 % (20.0-44.0); MEAN CORPUSCULAR HGB CONC 30 g/dl (31.0-36.0); MEAN CORPUSCULAR VOLUME 109 fL (80-96); MONOCYTES # (AUTO) 0.8 K/uL (0.1-1.30); MONOCYTES % (AUTO) 3.8 % (2.0-12.0); NEUTROPHILS # (AUTO) 18.6 K/uL (1.8-8.9); NEUTROPHILS % (AUTO) 86.5 % (43.0-81.0); PLATELET COUNT (AUTO) 241 K/uL (150-450); RED BLOOD CELL COUNT(AUTO) 2.39 MIL/uL (4.5-6.0); WHITE BLOOD COUNT (AUTO) 21.5 K/uL (4.3-11.0)
[2021-04-05 08:52] LABS: CALCIUM, SERUM 9.1 mg/dL (8.5-10.1); CREATININE 3.6 mg/dL (0.6-1.3); MAGNESIUM 2.5 mg/dL (1.8-2.4); PHOSPHORUS 4.6 mg/dL (2.5-4.9); POTASSIUM 5.1 mmol/L (3.5-5.1)
[2021-04-05 11:18] LABS: EOSINOPHILS % (MANUAL) 1 % (0-4); LYMPHOCYTES % (MANUAL) 7 % (16-48); MONOCYTES % (MANUAL) 4 % (0-11.0); NEUTROPHILS % (MANUAL) 88 (42-76)
--- NOTE | 2021-04-05 12:00 | NUR ---
REPORT GIVEN TO MS GIOVANNA HUFFMAN OF 3W FOR LUKE
--- NOTE | 2021-04-05 12:05 | NUR ---
TRANSFER PT TO ROOM 323-1 VIA ACLS PROTOCOL, TOGETHER WITH RT, RECEIVING NURSE AT BEDSIDE, PT TRANSFER TOLERATED WELL, SPO2 98% NO SIGN OF RESPIRATORY DISTRESS
--- NOTE | 2021-04-05 12:10 | NUR ---
PT. TRANSFERRED HERE VIA BED FROM ICU.VENT SET UP,T-FEED SET UP AND SIDE RAILS UP HOOKED UP TO TELE STACH RATE OF105.VS TAKEN.
--- NOTE | 2021-04-05 12:13 | NUR ---
pt. move from icu to [facility], pt use same mechanical ventilator. vent plugged into red outlet with alarms on and functioning. BVM @ bedside Addendum: 04/05/21 at 1214 by FRANCESCA GARZA RT Amended: Links added.
--- NOTE | 2021-04-05 15:30 | NUR ---
NO RESIDUAL ON TUBE FEEDING.DR. IMTTAL'S NURSE IN AND WROTE ORDERS.NO DIALYSIS CATH AT THIS TIME.
[2021-04-05] MEDS: NEPRO 1,000 ML BOTTLE GT PRN (16:24)
--- NOTE | 2021-04-05 18:00 | NUR ---
SUPPLIES AT BEDSIDE FOR DEBRIDEMENT TOMORROW.
--- NOTE | 2021-04-05 19:30 | NUR ---
COMPOSING ROOM MACHINIST APPRENTICE OPENING NOTES RECEIVED PATIENT ON BED, OBTUNDED. ON TRACH/VENT SETTING PER MD WITH NO SIGNS OF RESPIRATORY DISTRESS. WITH NO SIGNS OF PAIN OR DISCOMFORT. WITH IV ACCESS AT RIGHT UPPER ARM MIDLINE, FLUSHED, PATENT AND INTACT. ON NEPRO FEEDING AT 40CC/HR VIA G-TUBE, WELL TOLERATED. SAFETY MEASURES IN PLACED. BED ON LOWEST, LOCKED POSITION. SIDE RAILS UP X 2. WILL CONTINUE TO MONITOR.
--- NOTE | 2021-04-05 19:30 | NUR ---
RN NOTES RECEIVED PATIENT ON BED, VENT DEPENDENT , NOT IN DISTRESS, ST ON TELE MONITOR HR-104 , NO PAIN NOTED, G-TUBE FEEDING , RESIDUAL CHECKED 50ML, [id number], BED IN LOCKED POSITION, WILL CONTINUE TO MONITOR
[2021-04-06] VITALS: BP 111/55
[2021-04-06] MEDS: INSULIN REGULAR, HUMAN 100 UNIT/ML 3 ML VIAL SQ PRN ×4 (00:05→17:39)
[2021-04-06] MEDS: BLOOD SUGAR DIAGNOSTIC 1 EACH STRIP IN SCH ×5 (00:13→23:46)
[2021-04-06 03:56] VITALS: BP 113/66
[2021-04-06 05:56] LABS: BASOPHILS # (AUTO) 0.1 K/uL (0.0-0.2); BASOPHILS % (AUTO) 0.6 % (0.0-2.0); EOSINOPHILS % (AUTO) 1.2 % (0.0-6.0); HEMATOCRIT 26 % (39-51); LYMPHOCYTES % (AUTO) 5.5 % (20.0-44.0); MEAN CORPUSCULAR HGB CONC 31 g/dl (31.0-36.0); MEAN CORPUSCULAR VOLUME 108 fL (80-96); MONOCYTES # (AUTO) 0.7 K/uL (0.1-1.30); MONOCYTES % (AUTO) 3.9 % (2.0-12.0); NEUTROPHILS # (AUTO) 16.1 K/uL (1.8-8.9); NEUTROPHILS % (AUTO) 88.8 % (43.0-81.0); PLATELET COUNT (AUTO) 234 K/uL (150-450); WHITE BLOOD COUNT (AUTO) 18.1 K/uL (4.3-11.0)
[2021-04-06] MEDS ORDERED: VANCOMYCIN POST DIALYSIS 500MG IV PRN (06:00)
[2021-04-06 06:11] LABS: CALCIUM, SERUM 9.2 mg/dL (8.5-10.1); CREATININE 4.3 mg/dL (0.6-1.3); MAGNESIUM 2.8 mg/dL (1.8-2.4); PHOSPHORUS 5.2 mg/dL (2.5-4.9)
--- NOTE | 2021-04-06 06:14 | NUR ---
RN NOTES SPOKE TO CLEVE HARVEY PATIENT'S SISTER AND GOT A TELEPHONE CONSENT REGARDING PATIENT SACRAL DEBRIDEMENT AT BEDSIDE, WITNESSED BY THE CHARGE NURSE RADHA
--- NOTE | 2021-04-06 06:32 | NUR ---
BAG LINER CLOSING NOTES PATIENT ON BED, RESTING, OBTUNDED. ON TRACH/VENT SETTING PER MD WITH NO SIGNS OF RESPIRATORY DISTRESS. WITH NO SIGNS OF PAIN OR DISCOMFORT. WITH IV ACCESS AT RIGHT UPPER ARM MIDLINE #18, FLUSHED, PATENT AND INTACT. ON NEPRO FEEDING AT 40CC/HR VIA G-TUBE, WELL TOLERATED. ALL MEDS GIVEN. SAFETY MEASURES IN PLACED. BED ON LOWEST, LOCKED POSITION. SIDE RAILS UP X 2. WILL ENDORSE TO ONCOMING SHIFT..
--- NOTE | 2021-04-06 07:42 | NUR ---
FORK LIFT TRUCK OPERATOR OPENING NOTES RECEIVED PATIENT IN BED, OBTUNDED. ON TRACH/VENT SETTING PER MD ORDER WITH NO SIGNS OF RESPIRATORY DISTRESS NOTED. NO SIGNS/SYMPTOMS OF PAIN OR DISCOMFORT NOTED AT THIS TIME. ON EXTERNAL MONITOR SHOWING SINUS TACHYCARDIA HR AT 109. WITH IV ACCESS ON RIGHT UPPER ARM MIDLINE, FLUSHES WELL, PATENT AND INTACT. ON NEPRO FEEDING AT 40CC/HR VIA G-TUBE, WELL TOLERATED, KEPT HEAD OF THE BED ELEVATED. SAFETY MEASURES IN PLACED. BED ON LOWEST LOCKED POSITION. SIDE RAILS UP X 2, CALL LIGHT WITHIN EASY REACH. WILL CONTINUE TO MONITOR ACCORDINGLY.
[2021-04-06 08:00] VITALS: BP 117/80
[2021-04-06] MEDS: VIT B CMPLX 3/FA/VIT C/BIOTIN 1 TAB TABLET GT SCH (08:43)
[2021-04-06] MEDS: LEVETIRACETAM SOL (5 ML) 100 MG/ML UDC GT SCH (08:43)
[2021-04-06] MEDS: ASPIRIN 81 MG TAB.CHEW GT SCH (08:43)
[2021-04-06] MEDS: PANTOPRAZOLE 40 MG/PACK PACK GT SCH (08:44)
[2021-04-06] MEDS: MIDODRINE HCL (5MG) 5 MG TABLET GT SCH ×3 (08:44→16:43)
[2021-04-06] MEDS: CLOTRIMAZOLE 1% 15 GM TUBE TP SCH ×2 (08:47→16:40)
[2021-04-06] MEDS: HYDROGEL DRESSING 90 GM TUBE TP PRN ×2 (08:47→08:49)
[2021-04-06] MEDS ORDERED: SODIUM POLYSTYRENE SULF. PWD 15 GM UDC PO ONE (09:00)
[2021-04-06] MEDS: HYDROGEL DRESSING 90 GM TUBE TP SCH (09:13)
[2021-04-06 10:10] LABS: BAND % (MANUAL) 1 % (0.0-5.0); LYMPHOCYTES % (MANUAL) 7 % (16-48); MONOCYTES % (MANUAL) 2 % (0-11.0); NEUTROPHILS % (MANUAL) 90 (42-76)
--- NOTE | 2021-04-06 11:52 | NUR ---
RN NOTES BLOOD SUGAR CHECKED, RESULT IS 198, REGULAR INSULIN GIVEN ORDERED.
[2021-04-06] MEDS: ZOSYN IVPB 2.25 G in IV D5W 50ml IV SCH ×3 (12:51→23:46)
[2021-04-06 16:00] VITALS: BP 108/69
--- NOTE | 2021-04-06 16:32 | NUR ---
RN NOTES S/P DEBRIDEMENT OF SACRAL WOUND, PATIENT TOLERATED PROCEDURE WELL.
--- NOTE | 2021-04-06 18:00 | NUR ---
RN NOTES BLOOD SUGAR CHECKED, RESULT OF 248, REGULAR INSULIN GIVEN ORDERED.
[2021-04-06] MEDS: NEPRO 1,000 ML BOTTLE GT PRN (18:06)
--- NOTE | 2021-04-06 18:29 | NUR ---
STRENGTH AND CONDITIONING COACH CLOSING NOTES PATIENT IN BED, OBTUNDED. ON TRACH/VENT SETTING PER MD ORDER WITH NO SIGNS OF RESPIRATORY DISTRESS NOTED. NO SIGNS/SYMPTOMS OF PAIN OR DISCOMFORT NOTED AT THIS TIME. ON EXTERNAL MONITOR SHOWING SINUS TACHYCARDIA HR AT 110. WITH IV ACCESS ON LEFT UPPER ARM MIDLINE, FLUSHES WELL, PATENT AND INTACT. ON NEPRO FEEDING AT 40CC/HR VIA G-TUBE, WELL TOLERATED, KEPT HEAD OF THE BED ELEVATED. SAFETY MEASURES IN PLACED. BED ON LOWEST LOCKED POSITION. SIDE RAILS UP X 2, CALL LIGHT WITHIN EASY REACH. ALL NEEDS ATTENDED AND MET, WILL ENDORSE TO ONCOMING SHIFT FOR [place].
[2021-04-06 20:00] VITALS: BP 100/68
[2021-04-06] MEDS ORDERED: VANCOMYCIN 1 GM in IV D5W 250 ML IV ONE (20:00)
[2021-04-07] VITALS (9 sets, daily range): BP systolic 96–133; BP diastolic 54–74
--- NOTE | 2021-04-07 04:23 | NUR ---
RT NOTE PT REC'D TRACHED ON [facility] VENT ON AC MODE. PT SHOWS NO SIGNS OF RESP DISTRESS OR SOB. TRACH IS PATENT AND SECURED. ALARMS ARE SET AND AUDIBLE. VENT PLUGGED INTO RED OUTLET. AMBU BAG BEDSIDE. WILL CONTINUE TO MONITOR. Addendum: 04/07/21 at 0424 by NISH PRADHAN RT Amended: Links added.
[2021-04-07] MEDS: BLOOD SUGAR DIAGNOSTIC 1 EACH STRIP IN SCH ×3 (05:49→18:23)
[2021-04-07] MEDS: ZOSYN IVPB 2.25 G in IV D5W 50ml IV SCH ×3 (05:49→19:28)
--- NOTE | 2021-04-07 06:30 | NUR ---
ACCOUNTS ADMINISTRATOR NOTES AWAKE & NON VERBAL. NOT IN ANY DISTRESS. NO SOB NOTED. NO S/SX OF ANY PAIN OR DISCOMFORT AT THIS TIME. ON TELE ST @ 108 WITH GTF INFUSING WELL. AM CARE DONE. MONITORED ACCORDINGLY. CALL LIGHT WITHIN REACH. BED IN LOWEST POSITION. SR UP X 3 WITH BED ALARM ON FOR SAFETY. WILL ENDORSE TO NEXT SHIFT.
[2021-04-07] MEDS: INSULIN REGULAR, HUMAN 100 UNIT/ML 3 ML VIAL SQ PRN ×3 (07:15→18:39)
--- NOTE | 2021-04-07 07:42 | NUR ---
SYSTEM CONTROLLER OPENING NOTES RECEIVED PATIENT IN BED, OBTUNDED. ON TRACH/VENT SETTING PER MD ORDER WITH NO SIGNS OF RESPIRATORY DISTRESS NOTED. NO SIGNS/SYMPTOMS OF PAIN OR DISCOMFORT NOTED AT THIS TIME. ON EXTERNAL MONITOR SHOWING SINUS TACHYCARDIA HR AT 109. WITH IV ACCESS ON LEFT UPPER ARM MIDLINE, FLUSHES WELL, PATENT AND INTACT. ON NEPRO FEEDING AT 40CC/HR VIA G-TUBE, WELL TOLERATED, KEPT HEAD OF THE BED ELEVATED. RIGHT IJ CATH FOR DIALYSIS ACCESS NOTED, WITH DRY AND INTACT DRESSING IN PLACE. SAFETY MEASURES IN PLACED. BED ON LOWEST LOCKED POSITION. SIDE RAILS UP X 2, CALL LIGHT WITHIN EASY REACH. WILL CONTINUE TO MONITOR ACCORDINGLY.
[2021-04-07] MEDS: HYDROGEL DRESSING 90 GM TUBE TP PRN (08:26)
[2021-04-07] MEDS: LEVETIRACETAM SOL (5 ML) 100 MG/ML UDC GT SCH (08:27)
[2021-04-07] MEDS: CLOTRIMAZOLE 1% 15 GM TUBE TP SCH ×2 (08:27→16:58)
[2021-04-07] MEDS: PANTOPRAZOLE 40 MG/PACK PACK GT SCH (08:27)
[2021-04-07] MEDS: VIT B CMPLX 3/FA/VIT C/BIOTIN 1 TAB TABLET GT SCH (08:27)
[2021-04-07] MEDS: ASPIRIN 81 MG TAB.CHEW GT SCH (08:27)
[2021-04-07] MEDS: MIDODRINE HCL (5MG) 5 MG TABLET GT SCH ×3 (08:28→16:57)
[2021-04-07] MEDS: HYDROGEL DRESSING 90 GM TUBE TP SCH (08:36)
[2021-04-07 10:24] LABS: CALCIUM, SERUM 8.7 mg/dL (8.5-10.1); CREATININE 4.7 mg/dL (0.6-1.3); POTASSIUM 4.7 mmol/L (3.5-5.1)
[2021-04-07 11:01] LABS: EOSINOPHILS % (AUTO) 1.2 % (0.0-6.0); HEMATOCRIT 22 % (39-51); LYMPHOCYTES # (AUTO) 0.8 K/uL (0.8-4.8); LYMPHOCYTES % (AUTO) 4.2 % (20.0-44.0); MEAN CORPUSCULAR HGB CONC 31 g/dl (31.0-36.0); MEAN CORPUSCULAR VOLUME 109 fL (80-96); MONOCYTES # (AUTO) 0.7 K/uL (0.1-1.30); MONOCYTES % (AUTO) 3.9 % (2.0-12.0); NEUTROPHILS # (AUTO) 16.3 K/uL (1.8-8.9); NEUTROPHILS % (AUTO) 90.7 % (43.0-81.0); PLATELET COUNT (AUTO) 162 K/uL (150-450)
[2021-04-07 11:12] LABS: RED BLOOD CELL COUNT(AUTO) 1.98 MIL/uL (4.5-6.0)
[2021-04-07 11:15] LABS: HEMOGLOBIN 6.8 g/dL (13.5-17.5)
[2021-04-07 11:23] LABS: MAGNESIUM 2.8 mg/dL (1.8-2.4); PHOSPHORUS 6.4 mg/dL (2.5-4.9)
--- NOTE | 2021-04-07 11:45 | NUR ---
RN NOTES RECEIVED A CRITICAL LAB VALUE OF HGB 6.8. INFORMED MELLISA CASTILLO NP WITH ORDERS MADE AND CARRIED OUT. CONSENT FOR BLOOD TRANSFUSION OBTAINED FROM PATIENT'S SISTER, CLEVE VIA PHONE CALL WITH ANOTHER WITNESS, TARAN HUFMFAN.
[2021-04-07 12:00] LABS: EOSINOPHILS % (MANUAL) 1 % (0-4); LYMPHOCYTES % (MANUAL) 7 % (16-48); MONOCYTES % (MANUAL) 3 % (0-11.0); NEUTROPHILS % (MANUAL) 89 (42-76)
--- NOTE | 2021-04-07 12:07 | NUR ---
RN BASHIR MOJICA THROUGH RESULT OF , RELAYED TO PHARMACY DEPT, SPOKE TO ROBERTO,.
--- NOTE | 2021-04-07 17:00 | NUR ---
RN NOTES ONGOING HD. INFORM DIALYSIS NURSE THAT PATIENT HAS TRANSFUSION ORDER OF 1 UNIT PRBC WITH HD. T 1654 STARTED TRANSFUSION OF 1 UNIT PRBC PROPERLY TYPED AND CROSSMATCHED. VITAL SIGNS FOLLOWS: TEMP 98.2, KS 90, RR 16, BP 114/56.
--- NOTE | 2021-04-07 17:37 | NUR ---
RN NOTES BLOOD TRANSFUSION DONE, PATIENT ABLE TO TOLERATE TRANSFUSION, NO UNTOWARD REACTION NOTED.
--- NOTE | 2021-04-07 18:33 | NUR ---
BOX ORDER PERSON CLOSING NOTES PATIENT IN BED, OBTUNDED. ON TRACH/VENT SETTING PER MD ORDER WITH NO SIGNS OF RESPIRATORY DISTRESS NOTED. NO SIGNS/SYMPTOMS OF PAIN OR DISCOMFORT NOTED AT THIS TIME. ON EXTERNAL MONITOR SHOWING SINUS TACHYCARDIA HR AT 110. WITH IV ACCESS ON LEFT UPPER ARM MIDLINE, FLUSHES WELL, PATENT AND INTACT. ON NEPRO FEEDING AT 40CC/HR VIA G-TUBE, WELL TOLERATED, KEPT HEAD OF THE BED ELEVATED. SAFETY MEASURES IN PLACED. BED ON LOWEST LOCKED POSITION. SIDE RAILS UP X 2, CALL LIGHT WITHIN EASY REACH. ONGOING HEMODIALYSIS, S/P BLOOD TRANSFUSION OF 1 UNIT PRBC, TOLERATED WELL, NO UNTOWARD REACTION NOTED. ALL NEEDS ATTENDED AND MET, WILL ENDORSE TO ONCOMING SHIFT FOR [facility].
--- NOTE | 2021-04-07 19:45 | NUR ---
IMMIGRATION LAWYER OPENING NOTE PATIENT RESTING IN BED, PT NON-VERBAL AND OBTUNDED. PT ON TRACH/VENT, NO S/S OF DISTRESS OR SOB NOTED, BREATHING EVEN AND UNLABORED, SPO2 95%. PT ON TELE MONITORING, READING SINUS RHYTHM, HR 94. PATIENT JUST FINISHED HEMODIALYSIS WITH 1 LITER OUT, VITAL SIGNS STABLE. LEFT UPPER ARM MIDLINE INTACT AND FLUSHING WELL, RIGHT IJ CATH CLEAN, DRY AND INTACT. PT ON G-TUBE FEEDING, SITE CLEAN, DRY AND INTACT, NEPRO RUNNING AT 40 ML/HR. PER ARMIDA JOHNSON UNABLE TO GIVE DOSE OF ZOSYN SCHEDULED FOR 1800 D/T HEMODIALYSIS WITH ORDERS TO HANG BAG ONCE HD WAS FINISHED, CALLED PHARMACY TO VERIFY IF DOSE SCHEDULE NEEDED TO BE ADJUSTED BUT WAS TOLD IT WAS NOT NECESSARY AND TO GIVE KATT. SAFETY MEASURES IN PLACE: CALL LIGHT WITHIN REACH, BED LOCKED IN LOW POSITION, BED ALARM ON, HOB ELEVATED TO PREVENT ASPIRATION. WILL CONTINUE TO MONITOR PATIENT THROUGHOUT SHIFT
--- NOTE | 2021-04-07 20:31 | NUR ---
RT NOTE PT REC'D TRACHED ON [facility] VENT ON AC MODE. PT SHOWS NO SIGNS OF RESP DISTRESS OR SOB. TRACH IS PATENT AND SECURED. ALARMS ARE SET AND AUDIBLE. VENT PLUGGED INTO RED OUTLET. AMBU BAG BEDSIDE. WILL CONTINUE TO MONITOR. Addendum: 04/07/21 at 2030 by NISH PRADHAN RT Amended: Links added.
[2021-04-08] VITALS: BP 130/81
[2021-04-08] MEDS: BLOOD SUGAR DIAGNOSTIC 1 EACH STRIP IN SCH ×4 (00:10→17:24)
[2021-04-08] MEDS: ZOSYN IVPB 2.25 G in IV D5W 50ml IV SCH ×5 (00:10→23:22)
[2021-04-08] MEDS: INSULIN REGULAR, HUMAN 100 UNIT/ML 3 ML VIAL SQ PRN ×4 (00:15→23:31)
[2021-04-08 04:00] VITALS: BP 125/76
[2021-04-08] MEDS: NEPRO 1,000 ML BOTTLE GT PRN (06:30)
[2021-04-08 06:54] LABS: BASOPHILS # (AUTO) 0.1 K/uL (0.0-0.2); BASOPHILS % (AUTO) 0.4 % (0.0-2.0); EOSINOPHILS % (AUTO) 0.9 % (0.0-6.0); HEMATOCRIT 26 % (39-51); HEMOGLOBIN 8.3 g/dL (13.5-17.5); LYMPHOCYTES # (AUTO) 0.6 K/uL (0.8-4.8); LYMPHOCYTES % (AUTO) 3.4 % (20.0-44.0); MEAN CORPUSCULAR HGB CONC 32 g/dl (31.0-36.0); MEAN CORPUSCULAR VOLUME 102 fL (80-96); MONOCYTES % (AUTO) 5.3 % (2.0-12.0); NEUTROPHILS # (AUTO) 16.1 K/uL (1.8-8.9); PLATELET COUNT (AUTO) 149 K/uL (150-450); RED BLOOD CELL COUNT(AUTO) 2.55 MIL/uL (4.5-6.0); WHITE BLOOD COUNT (AUTO) 17.9 K/uL (4.3-11.0)
--- NOTE | 2021-04-08 07:42 | NUR ---
FLAME HARDENING MACHINE SETTER CLOSING NOTES PATIENT REMAINED STABLE DURING SHIFT. NO S/S OF DISTRESS OR SOB NOTED, BREATHING EVEN AND UNLABORED. PATIENT SINUS RHYTHM ON TELE MONITORING. MEDICATIONS GIVEN ORDERED, PT NEEDS MET THROUGHOUT SHIFT. WOUND TREATMENT DONE IN SACRUM. NEPRO G TUBE FEEDING RUNNING AT 40 ML/HR. SAFETY MEASURES IN PLACE, CALL LIGHT WITHIN REACH, BED LOCKED IN LOW POSITION, SIDE RAILS UP X 3, HOB ELEVATED. WILL ENDORSE TO DAY SHIFT NURSE FOR CONTINUITY OF CARE
[2021-04-08 07:52] LABS: CALCIUM, SERUM 8.5 mg/dL (8.5-10.1); CREATININE 3.3 mg/dL (0.6-1.3); MAGNESIUM 2.4 mg/dL (1.8-2.4); PHOSPHORUS 4.9 mg/dL (2.5-4.9); POTASSIUM 3.6 mmol/L (3.5-5.1)
[2021-04-08 08:00] VITALS: BP 101/67
--- NOTE | 2021-04-08 08:00 | NUR ---
SLUMBER ROOM ATTENDANT OPENING NOTES RECEIVED PATIENT LYING IN BED, OBTUNDED. NON VERBAL. VENT SETTINGS - PORTEX 7, FI02 30%, TV 500, AC 16, PEEP 0. NO DISTRESS/DISCOMFORT NOTED. ON TELE MONITOR - READS SINUS RHYTHM. G TUBE NOTED - RUNNING NEPRO @ 40ML/HR. IV ACCESS TO LEFT UPPER ARM - MIDLINE, INTACT AND PATENT. NO ABERNATHY NOTED. SAFETY MEASURES IN PLACE. CALL LIGHT WITHIN REACH. WILL CONTINUE TO MONITOR.
[2021-04-08] MEDS: VIT B CMPLX 3/FA/VIT C/BIOTIN 1 TAB TABLET GT SCH (08:53)
[2021-04-08] MEDS: ACETAMINOPHEN 325 MG TABLET MC PRN (08:53)
[2021-04-08] MEDS: PANTOPRAZOLE 40 MG/PACK PACK GT SCH (08:54)
[2021-04-08] MEDS: MIDODRINE HCL (5MG) 5 MG TABLET GT SCH ×3 (08:54→16:26)
[2021-04-08] MEDS: LEVETIRACETAM SOL (5 ML) 100 MG/ML UDC GT SCH (08:54)
[2021-04-08] MEDS: ASPIRIN 81 MG TAB.CHEW GT SCH (08:56)
[2021-04-08] MEDS: HYDROGEL DRESSING 90 GM TUBE TP SCH (09:00)
[2021-04-08] MEDS: CLOTRIMAZOLE 1% 15 GM TUBE TP SCH ×2 (09:01→16:19)
[2021-04-08] MEDS ORDERED: ALBUMIN 25% 25 GM in PREMIX 1 EA IV PRN (10:30)
[2021-04-08 12:00] VITALS: BP 97/56
[2021-04-08 16:00] VITALS: BP 96/56
--- NOTE | 2021-04-08 18:48 | NUR ---
TABLE ASSEMBLER METAL CLOSING NOTE PATIENT CURRENTLY LYING IN BED, RESTING, OBTUNDED. NON VERBAL. VENT SETTINGS - PORTEX 7, FI02 30%, TV 500, AC 16, PEEP 0. NO DISTRESS/DISCOMFORT NOTED. ON TELE MONITOR - READS SINUS RHYTHM. G TUBE NOTED - RUNNING NEPRO @ 40ML/HR. IV ACCESS TO LEFT UPPER ARM - MIDLINE, INTACT AND PATENT. WOUND DRESSINGS CHANGED. NO ABERNATHY NOTED. SAFETY MEASURES IN PLACE. CALL LIGHT WITHIN REACH. WILL ENDORSE TO NURSE PRACTITIONER HOSPITALIST NURSE FOR [facility].
--- NOTE | 2021-04-08 19:30 | NUR ---
CAUSTIC PURIFICATION OPERATOR OPENING NOTES RECEIVED PATIENT LYING ON BED, RESTING, OBTUNDED AND NON-VERBAL. VENT SETTINGS - PORTEX 7, FI02 30%, TV 500, AC 16, PEEP 0. NO SIGNS OF DISTRESS/DISCOMFORT NOTED. ON TELE MONITOR - READING SINUS RHYTHM AT 91BPM. ON NEPRO FEEDING AT 40ML/HR VIA G-TUBE. WITH IV ACCESS AT LEFT UPPER ARM - MIDLINE, FLUSHED, INTACT AND PATENT. SAFETY MEASURES IN PLACED. CALL LIGHT WITHIN REACH. WILL CONTINUE TO MONITOR.
[2021-04-08 20:00] VITALS: BP 94/55
[2021-04-09] VITALS: BP 97/57
[2021-04-09] MEDS: BLOOD SUGAR DIAGNOSTIC 1 EACH STRIP IN SCH ×4 (00:32→17:07)
[2021-04-09 04:00] VITALS: BP 103/64
[2021-04-09] MEDS: NEPRO 1,000 ML BOTTLE GT PRN (05:17)
[2021-04-09] MEDS: ZOSYN IVPB 2.25 G in IV D5W 50ml IV SCH ×4 (05:34→23:27)
[2021-04-09] MEDS: INSULIN REGULAR, HUMAN 100 UNIT/ML 3 ML VIAL SQ PRN ×4 (05:35→23:55)
--- NOTE | 2021-04-09 06:13 | NUR ---
BATCH MAKER CLOSING NOTE PATIENT ON BED, RESTING, OBTUNDED. NON VERBAL. VENT SETTINGS - PORTEX 7, FI02 30%, TV 500, AC 16, PEEP 0. NOT IN DISTRESS. ON TELE MONITOR - READS SINUS TACHYCARDIA AT 103BPM. ON NEPRO FEEDING @ 40ML/HR. IV ACCESS TO LEFT UPPER ARM - MIDLINE, INTACT AND PATENT. SAFETY MEASURES IN PLACED. CALL LIGHT WITHIN REACH. WILL ENDORSE TO NEXT SHIFT NURSE FOR [facility].
[2021-04-09 06:32] LABS: BASOPHILS % (AUTO) 0.2 % (0.0-2.0); EOSINOPHILS % (AUTO) 1.2 % (0.0-6.0); HEMATOCRIT 26 % (39-51); HEMOGLOBIN 8.5 g/dL (13.5-17.5); LYMPHOCYTES # (AUTO) 0.7 K/uL (0.8-4.8); LYMPHOCYTES % (AUTO) 3.8 % (20.0-44.0); MEAN CORPUSCULAR HGB CONC 32 g/dl (31.0-36.0); MEAN CORPUSCULAR VOLUME 103 fL (80-96); MONOCYTES # (AUTO) 0.8 K/uL (0.1-1.30); MONOCYTES % (AUTO) 4.7 % (2.0-12.0); NEUTROPHILS # (AUTO) 15.5 K/uL (1.8-8.9); NEUTROPHILS % (AUTO) 90.1 % (43.0-81.0); PLATELET COUNT (AUTO) 139 K/uL (150-450); RED BLOOD CELL COUNT(AUTO) 2.57 MIL/uL (4.5-6.0); WHITE BLOOD COUNT (AUTO) 17.2 K/uL (4.3-11.0)
--- NOTE | 2021-04-09 07:28 | NUR ---
COMEDIAN OPENING NOTES RECEIVED PATIENT LYING ON BED, RESTING, OBTUNDED AND NON-VERBAL. PATIENT IS ON VENT SETTINGS - PORTEX 7, FI02 30%, TV 500, AC 16, PEEP 0. NO SIGNS OF DISTRESS/DISCOMFORT NOTED. PATIENT IS ON TELE MONITOR - READING SINUS RHYTHM AT 89 BPM. PATIENT IS ON NEPRO FEEDING AT 40ML/HR VIA G-TUBE. PATIENT NOTED WITH WITH IV ACCESS AT LEFT UPPER ARM - MIDLINE, FLUSHED, INTACT AND PATENT. SAFETY MEASURES IN PLACED. CALL LIGHT WITHIN REACH. WILL CONTINUE TO MONITOR.
[2021-04-09 08:00] VITALS: BP 93/70
[2021-04-09 08:02] LABS: CALCIUM, SERUM 8.3 mg/dL (8.5-10.1); CREATININE 2.3 mg/dL (0.6-1.3); POTASSIUM 3.8 mmol/L (3.5-5.1)
[2021-04-09] MEDS: ASPIRIN 81 MG TAB.CHEW GT SCH (08:17)
[2021-04-09] MEDS: MIDODRINE HCL (5MG) 5 MG TABLET GT SCH ×3 (08:18→16:13)
[2021-04-09] MEDS: LEVETIRACETAM SOL (5 ML) 100 MG/ML UDC GT SCH (08:18)
[2021-04-09] MEDS: PANTOPRAZOLE 40 MG/PACK PACK GT SCH (08:18)
[2021-04-09] MEDS: VIT B CMPLX 3/FA/VIT C/BIOTIN 1 TAB TABLET GT SCH (08:18)
[2021-04-09] MEDS: CLOTRIMAZOLE 1% 15 GM TUBE TP SCH ×2 (08:19→16:13)
[2021-04-09] MEDS: HYDROGEL DRESSING 90 GM TUBE TP SCH (08:20)
[2021-04-09 12:00] VITALS: BP 83/51
--- NOTE | 2021-04-09 12:30 | NUR ---
RN NOTE PATIENTS BP 83/53. MD NOTIFIED. STATED TO GIVE AFTERNOON DOSE OF MIDODRINE. RECHECKED BP NOW 96/63. NO NEW ORDERS. WILL CONTINUE TO MONITOR
--- NOTE | 2021-04-09 12:39 | NUR ---
RN NOTE LABORATORY CALLED FOR POSITIVE BLOOD CULTURE, MRSA. MD NOTIFIED NO NEW ORDER AT THIS TIME. CONTINUE TO MONITOR
[2021-04-09 16:00] VITALS: BP 89/66
--- NOTE | 2021-04-09 18:23 | NUR ---
VISUAL EDUCATOR CLOSING NOTES PATIENT LYING ON BED, RESTING, OBTUNDED AND NON-VERBAL. PATIENT IS ON VENT SETTINGS - PORTEX 7, FI02 30%, TV 500, AC 16, PEEP 02 SATURATION 99%. NO SIGNS OF DISTRESS/DISCOMFORT NOTED. PATIENT IS ON TELE MONITOR - READING SINUS RHYTHM. PATIENT IS ON NEPRO FEEDING AT 40ML/HR VIA G-TUBE. PATIENT NOTED WITH WITH IV ACCESS AT LEFT UPPER ARM - MIDLINE, FLUSHED, INTACT AND PATENT. ALL MEDICATIONS GIVEN ORDERED. WOUND CARE PERFORMED DURING SHIFT, PATIENT WAS TURNED AND POSITIONED Q2HRS. SAFETY MEASURES IN PLACED BED LOW LOCKED. CALL LIGHT WITHIN REACH. WILL ENDORSE TO ONCOMING SHIFT.
--- NOTE | 2021-04-09 19:30 | NUR ---
GUEST SERVICES OFFICER OPENING NOTES RECEIVED PATIENT LYING ON BED, RESTING, OBTUNDED AND NON-VERBAL. PATIENT IS ON VENT SETTINGS - PORTEX 7, FI02 30%, TV 500, AC 16, PEEP 0. NO SIGNS OF DISTRESS/DISCOMFORT NOTED. PATIENT IS ON TELE MONITOR - READING SINUS RHYTHM AT 97 BPM. PATIENT IS ON NEPRO FEEDING AT 40ML/HR VIA G-TUBE. WITH WITH IV ACCESS AT LEFT UPPER ARM - MIDLINE, FLUSHED, INTACT AND PATENT. SAFETY MEASURES IN PLACED. CALL LIGHT WITHIN REACH. WILL CONTINUE TO MONITOR.
[2021-04-09 20:00] VITALS: BP 91/62
[2021-04-09] MEDS: IV NS 0.9% 250 ML IV PRN (23:30)
[2021-04-10] VITALS: BP 95/65
[2021-04-10] MEDS: BLOOD SUGAR DIAGNOSTIC 1 EACH STRIP IN SCH ×5 (00:09→23:18)
[2021-04-10 04:00] VITALS: BP 95/70
[2021-04-10] MEDS: ZOSYN IVPB 2.25 G in IV D5W 50ml IV SCH ×3 (05:09→17:34)
[2021-04-10] MEDS: NEPRO 1,000 ML BOTTLE GT PRN (05:09)
[2021-04-10] MEDS: INSULIN REGULAR, HUMAN 100 UNIT/ML 3 ML VIAL SQ PRN ×4 (05:31→23:56)
--- NOTE | 2021-04-10 06:42 | NUR ---
CUSTOMS OPENER VERIFIER PACKER CLOSING NOTES PATIENT ON BED, RESTING, OBTUNDED AND NON-VERBAL. PATIENT IS ON VENT SETTINGS - PORTEX 7, FI02 30%, TV 500, AC 16, PEEP 0. NO SIGNS OF DISTRESS/DISCOMFORT NOTED. PATIENT IS ON TELE MONITOR - READING SINUS TACHYCARDIA AT 102BPM. ON NEPRO FEEDING AT 40ML/HR VIA G-TUBE. WITH WITH IV ACCESS AT LEFT UPPER ARM - MIDLINE, FLUSHED, INTACT AND PATENT. SAFETY MEASURES IN PLACED. CALL LIGHT WITHIN REACH. WILL CONTINUE TO MONITOR.
--- NOTE | 2021-04-10 08:00 | NUR ---
SURGICAL NURSE OPENING NOTES RECEIVED PATIENT LYING IN BED, OBTUNDED. NON VERBAL. VENT SETTINGS - PORTEX 7, FI02 30%, TV 500, AC 16, PEEP 0. NO DISTRESS/DISCOMFORT NOTED. ON TELE MONITOR - READS SINUS RHYTHM. G TUBE NOTED - FLUSHES WELL - RUNNING NEPRO @ 40ML/HR. IV ACCESS TO LEFT UPPER ARM - MIDLINE, INTACT AND PATENT. NO ABERNATHY NOTED. SAFETY MEASURES IN PLACE. CALL LIGHT WITHIN REACH. WILL CONTINUE TO MONITOR.
[2021-04-10] MEDS: LEVETIRACETAM SOL (5 ML) 100 MG/ML UDC GT SCH (08:12)
[2021-04-10] MEDS: MIDODRINE HCL (5MG) 5 MG TABLET GT SCH ×3 (08:12→17:12)
[2021-04-10] MEDS: PANTOPRAZOLE 40 MG/PACK PACK GT SCH (08:12)
[2021-04-10] MEDS: ASPIRIN 81 MG TAB.CHEW GT SCH (08:12)
[2021-04-10] MEDS: VIT B CMPLX 3/FA/VIT C/BIOTIN 1 TAB TABLET GT SCH (08:13)
[2021-04-10] MEDS: HYDROGEL DRESSING 90 GM TUBE TP SCH (08:18)
[2021-04-10 08:20] VITALS: BP 90/56
[2021-04-10] MEDS: CLOTRIMAZOLE 1% 15 GM TUBE TP SCH ×2 (08:25→17:13)
[2021-04-10 16:05] VITALS: BP 94/56
--- NOTE | 2021-04-10 18:25 | NUR ---
SALES PROCESS MANAGER CLOSING NOTE PATIENT CURRENTLY LYING IN BED, RESTING, OBTUNDED. NON VERBAL. VENT SETTINGS - PORTEX 7, FI02 30%, TV 500, AC 16, PEEP 0. NO DISTRESS/DISCOMFORT NOTED. ON TELE MONITOR - READS SINUS RHYTHM. G TUBE NOTED - RUNNING NEPRO @ 40ML/HR. IV ACCESS TO LEFT UPPER ARM - MIDLINE, INTACT AND PATENT. WOUND DRESSINGS CHANGED. NO ABERNATHY NOTED. SAFETY MEASURES IN PLACE. CALL LIGHT WITHIN REACH. WILL ENDORSE TO GOURMET COFFEE ATTENDANT NURSE FOR [facility]KE.
[2021-04-10 20:00] VITALS: BP 95/53
--- NOTE | 2021-04-10 20:00 | NUR ---
GROUP LEADER SEMICONDUCTOR PROCESSING OPENING NOTE RECEIVED PT IN BED, OBTUNDED AND NON-VERBAL. PT NOTED ON VENT WITH PRESCRIBED SETTINGS - PORTEX 7, FI02 30%, TV 500, AC 16, PEEP 0. NO SOB OR S/S OF RESPIRATORY DISTRESS NOTED. PT ON EXTERNAL ROSE GRADING SUPERVISOR READING SR AT 96 BPM. PT NOTED WITH GTUBE IN PLACE RUNNING NEPRO @ 40ML/HR, INTACT AND PATENT. IV ACCESS NOTED IN LEFT UPPER ARM - MIDLINE, INTACT AND PATENT. SAFETY PRECAUTIONS MAINTAINED. BED IN LOWEST LOCKED POSITION, HOB ELEVATED, SIDE RAILS UP X2. CALL LIGHT AND TABLE WITHIN REACH. WILL CONTINUE WITH PLAN OF CARE.
[2021-04-11] VITALS: BP 93/52
[2021-04-11] MEDS: ZOSYN IVPB 2.25 G in IV D5W 50ml IV SCH ×5 (00:03→23:21)
[2021-04-11 04:00] VITALS: BP 96/53
[2021-04-11] MEDS: BLOOD SUGAR DIAGNOSTIC 1 EACH STRIP IN SCH ×4 (05:18→23:16)
[2021-04-11] MEDS: INSULIN REGULAR, HUMAN 100 UNIT/ML 3 ML VIAL SQ PRN ×3 (05:24→23:20)
[2021-04-11 06:18] LABS: BASOPHILS # (AUTO) 0.1 K/uL (0.0-0.2); BASOPHILS % (AUTO) 0.6 % (0.0-2.0); EOSINOPHILS % (AUTO) 1.1 % (0.0-6.0); HEMATOCRIT 27 % (39-51); HEMOGLOBIN 8.5 g/dL (13.5-17.5); LYMPHOCYTES # (AUTO) 0.7 K/uL (0.8-4.8); MEAN CORPUSCULAR HGB CONC 32 g/dl (31.0-36.0); MEAN CORPUSCULAR VOLUME 103 fL (80-96); MONOCYTES # (AUTO) 0.9 K/uL (0.1-1.30); MONOCYTES % (AUTO) 6.5 % (2.0-12.0); NEUTROPHILS # (AUTO) 11.9 K/uL (1.8-8.9); NEUTROPHILS % (AUTO) 86.8 % (43.0-81.0); PLATELET COUNT (AUTO) 160 K/uL (150-450); RED BLOOD CELL COUNT(AUTO) 2.57 MIL/uL (4.5-6.0); WHITE BLOOD COUNT (AUTO) 13.7 K/uL (4.3-11.0)
--- NOTE | 2021-04-11 06:23 | NUR ---
DIRECTOR OF DIETARY CLOSING NOTE PT IS IN BED, OBTUNDED AND NON-VERBAL. PT NOTED ON VENT WITH PRESCRIBED SETTINGS - PORTEX 7, FI02 30%, TV 500, AC 16, PEEP 0. NO SOB OR S/S OF RESPIRATORY DISTRESS NOTED. PT ON EXTERNAL SEAM STEAMER READING SR AT 97 BPM. PT NOTED WITH GTUBE IN PLACE RUNNING NEPRO @ 40ML/HR, INTACT AND PATENT. IV ACCESS IS INTACT, PATENT, AND FLUSHING WELL. ALL NEEDS HAVE BEEN MET. WOUND CARE ADMINISTERED PER ORDER. PT REPOSITIONED Q2H AND PRN. SAFETY AND SEIZURE PRECAUTIONS MAINTAINED AT ALL TIMES. BED IN LOWEST LOCKED POSITION, HOB ELEVATED, SIDE RAILS UP X2. CALL LIGHT AND TABLE WITHIN REACH. WILL ENDORSE TO ONCOMING NURSE FOR [facility].
--- NOTE | 2021-04-11 07:15 | NUR ---
RN OPENING NOTE RECEIVED PATIENT IN BED. NON VERBAL, OPENS EYES. OBTUNDED. ON [facility] VENT PORTEX 7 WITH SETTINGS AC 16 TV 500 Fi02 30% PEEP 0. TELE READING SHOWS ST 105. R IJ HD CATH C/D/I. IV ACCESS ON NELIDA MIDLINE, INTACT AND PATENT. NEPRO RUNNING AT 40 ML/HR. SAFETY MEASURES MAINTAINED. BED IN LOWEST POSITION, BRAKES LOCKED. SIDE RAILS UP X2. CALL LIGHT WITHIN REACH. WILL CONTINUE PLAN OF CARE.
[2021-04-11 08:00] VITALS: BP 100/60
[2021-04-11] MEDS: PANTOPRAZOLE 40 MG/PACK PACK GT SCH (08:41)
[2021-04-11] MEDS: LEVETIRACETAM SOL (5 ML) 100 MG/ML UDC GT SCH (08:41)
[2021-04-11] MEDS: VIT B CMPLX 3/FA/VIT C/BIOTIN 1 TAB TABLET GT SCH (08:41)
[2021-04-11] MEDS: ASPIRIN 81 MG TAB.CHEW GT SCH (08:41)
[2021-04-11] MEDS: MIDODRINE HCL (5MG) 5 MG TABLET GT SCH ×3 (08:42→16:22)
[2021-04-11] MEDS: HYDROGEL DRESSING 90 GM TUBE TP SCH (08:43)
[2021-04-11] MEDS: CLOTRIMAZOLE 1% 15 GM TUBE TP SCH ×2 (08:43→16:24)
[2021-04-11 12:00] VITALS: BP 118/68
[2021-04-11 16:00] VITALS: BP 103/71
[2021-04-11] MEDS: ARGININE/GLUTAMINE/CALCIUM BMB 1 EACH POWD.PACK PEG SCH (16:22)
[2021-04-11] MEDS: NEPRO 1,000 ML BOTTLE GT PRN (18:18)
--- NOTE | 2021-04-11 18:30 | NUR ---
RN CLOSING NOTE PATIENT RESTING IN BED. NON VERBAL, OPENS EYES. OBTUNDED. ON [facility] VENT PORTEX 7 WITH SETTINGS AC 16 TV 500 Fi02 30% PEEP 0. TOLERATING SETTINGS WELL. TELE READING SHOWS ST 101. R IJ HD CATH C/D/I. IV ACCESS ON NELIDA MIDLINE, INTACT AND PATENT. NO SIGNS OF INFILTRATION. GT FEEDING NEPRO RUNNING AT 40 ML/HR. DUE MEDS GIVEN ORDERED. SAFETY MEASURES MAINTAINED. BED IN LOWEST POSITION, BRAKES LOCKED. SIDE RAILS UP X2. KEPT CALL LIGHT WITHIN REACH. WILL ENDORSE CONTINUITY OF CARE TO ONCOMING SHIFT.
--- NOTE | 2021-04-11 19:40 | NUR ---
SITE MEDICAL DIRECTOR OPENING NOTE RECEIVED PT IN BED. NON-VERBAL, OBTUNDED, AND OPENS EYES. PT NOTED ON VENT WITH PRESCRIBED SETTINGS - PORTEX 7, FI02 30%, TV 500, AC 16, PEEP 0. NO SOB OR S/S OF RESPIRATORY DISTRESS NOTED. PT ON EXTERNAL ICE CREAM VAULT WORKER READING ST AT 102 BPM. PT NOTED WITH GTUBE IN PLACE RUNNING NEPRO @ 40ML/HR, INTACT AND PATENT. IV ACCESS NOTED IN LEFT UPPER ARM - MIDLINE, INTACT AND PATENT. SAFETY AND SEIZURE PRECAUTIONS MAINTAINED. BED IN LOWEST LOCKED POSITION, HOB ELEVATED, SIDE RAILS UP X2. CALL LIGHT AND TABLE WITHIN REACH. WILL CONTINUE WITH PLAN OF CARE.
[2021-04-11 20:00] VITALS: BP 98/63
[2021-04-12] VITALS: BP 95/65
[2021-04-12 04:00] VITALS: BP 104/70
[2021-04-12] MEDS: ZOSYN IVPB 2.25 G in IV D5W 50ml IV SCH ×3 (05:05→18:02)
[2021-04-12] MEDS: BLOOD SUGAR DIAGNOSTIC 1 EACH STRIP IN SCH ×2 (05:22→12:32)
[2021-04-12] MEDS: INSULIN REGULAR, HUMAN 100 UNIT/ML 3 ML VIAL SQ PRN (05:24)
[2021-04-12 06:04] LABS: BASOPHILS # (AUTO) 0.1 K/uL (0.0-0.2); EOSINOPHILS % (AUTO) 1.7 % (0.0-6.0); HEMATOCRIT 26 % (39-51); HEMOGLOBIN 8.4 g/dL (13.5-17.5); LYMPHOCYTES # (AUTO) 0.9 K/uL (0.8-4.8); LYMPHOCYTES % (AUTO) 6.3 % (20.0-44.0); MEAN CORPUSCULAR HGB CONC 32 g/dl (31.0-36.0); MEAN CORPUSCULAR VOLUME 103 fL (80-96); MONOCYTES # (AUTO) 1.2 K/uL (0.1-1.30); PLATELET COUNT (AUTO) 200 K/uL (150-450); RED BLOOD CELL COUNT(AUTO) 2.55 MIL/uL (4.5-6.0); WHITE BLOOD COUNT (AUTO) 13.5 K/uL (4.3-11.0)
--- NOTE | 2021-04-12 06:19 | NUR ---
ROOFING LAYER CLOSING NOTE PT IS RESTING IN BED. NON-VERBAL, OBTUNDED, AND OPENS EYES. PT NOTED ON VENT WITH PRESCRIBED SETTINGS - PORTEX 7, FI02 30%, TV 500, AC 16, PEEP 0. NO SOB OR S/S OF RESPIRATORY DISTRESS NOTED. PT ON EXTERNAL SHOE STOCK ASSOCIATE READING ST AT 101 BPM. PT NOTED WITH GTUBE IN PLACE RUNNING NEPRO @ 40ML/HR, INTACT AND PATENT. IV ACCESS IS INTACT, PATENT, AND FLUSHING WELL. ALL NEEDS HAVE BEEN MET. SAFETY AND SEIZURE PRECAUTIONS MAINTAINED AT ALL TIMES. WOUND CARE ADMINISTERED PER ORDER. PT REPOSITIONED Q2H AND PRN. BED IN LOWEST LOCKED POSITION, HOB ELEVATED, SIDE RAILS UP X2. CALL LIGHT AND TABLE WITHIN REACH. WILL ENDORSE TO ONCOMING NURSE FOR [facility].
[2021-04-12 06:47] LABS: CALCIUM, SERUM 8.6 mg/dL (8.5-10.1); CREATININE 2.7 mg/dL (0.6-1.3); POTASSIUM 3.7 mmol/L (3.5-5.1)
--- NOTE | 2021-04-12 07:15 | NUR ---
GRAPHIC ENGINEER OPENING NOTE RECEIVED PT ON BED AWAKE, NON-VERBAL WITH SPONTANEOUS EYE OPENING. PT IS STABLE ON ROOM AIR, NO SOB OR S/S OF RESPIRATORY DISTRESS NOTED. PT ON EXTERNAL BOILER HOUSE INSPECTOR READING SR TO ST. PT HAS NO SIGNS AND SYMPTOMS PAIN OR DISCOMFORT AT THIS TIME. IV ACCESS NOTED IN NELIDA MIDLINE, INTACT AND PATENT. WITH TRACH TO MECHANICAL VENTILATOR. WITH G-TUBE, WITH ONGOING G-TUBE FEEDING OF NEPHRO AT 40ML/HR, TOLERATED WELL. SAFETY PRECAUTIONS MAINTAINED. BED IN LOWEST LOCKED POSITION, HOB ELEVATED, SIDE RAILS UP X2. CALL LIGHT AND TABLE WITHIN REACH. WILL CONTINUE WITH PLAN OF CARE.
[2021-04-12 08:00] VITALS: BP 106/77
[2021-04-12] MEDS: ASPIRIN 81 MG TAB.CHEW GT SCH (09:07)
[2021-04-12] MEDS: LEVETIRACETAM SOL (5 ML) 100 MG/ML UDC GT SCH (09:08)
[2021-04-12] MEDS: MIDODRINE HCL (5MG) 5 MG TABLET GT SCH ×3 (09:08→18:03)
[2021-04-12] MEDS: PANTOPRAZOLE 40 MG/PACK PACK GT SCH (09:08)
[2021-04-12] MEDS: VIT B CMPLX 3/FA/VIT C/BIOTIN 1 TAB TABLET GT SCH (09:13)
[2021-04-12] MEDS: HYDROGEL DRESSING 90 GM TUBE TP SCH (09:21)
[2021-04-12] MEDS: CLOTRIMAZOLE 1% 15 GM TUBE TP SCH ×2 (09:21→18:02)
--- NOTE | 2021-04-12 11:15 | NUR ---
CHIEF WRITER NOTE PATIENT STARTED ON HEMODIALYSIS ORDERED. WILL CONTINUE TO MONITOR PATIENT.
[2021-04-12] MEDS: ARGININE/GLUTAMINE/CALCIUM BMB 1 EACH POWD.PACK PEG SCH ×2 (12:44→18:02)
[2021-04-12] MEDS ORDERED: VANCOMYCIN 1 GM in IV D5W 250ml IV ONE (13:30)
[2021-04-12 16:09] VITALS: BP 117/89
--- NOTE | 2021-04-12 18:00 | NUR ---
FREELANCE PHOTOGRAPHER NOTE PATIENT WITH ORDER FOR DISCHARGE/ TRANSFER TO [place]. PATIENT ENDORSED TO [facility] AT [facility]. INLUCING S/P HD STATUS WITH 2LITERS OUT. PATIENT IN STABLE CONDITION. WILL CONTINUE TO MONITOR PATIENT.
[2021-04-12 18:03] VITALS: BP 117/89
--- NOTE | 2021-04-12 19:10 | NUR ---
PROCUREMENT PROFESSIONAL NOTE PATIENT TRANSFERRED TO [place] ORDERED. IN STABLE CONDITION. ACCOMPANIED BY 3 EMT PERSONNEL INCLUDING A RT FOR THE VENT. ENDORSED ACCORDINGLY.
== END 2021-04-12 19:00 | DRG 264 ==
LOC: ER 17:32 → TRANSITION 20:19 → ICU 21:04 → TELE 04-05 12:14
PROVIDERS: ADMIT Internal Medicine; ATTEND Nurse Practitioner Acute Care
PROC: 5A1955Z Respiratory Ventilation, Greater than 96 Consecutive Hours (ICD-10-PCS; principal; 2021-03-29)
PROC: 05H633Z Insertion of Infusion Device into Left Subclavian Vein, Percutaneous Approach (ICD-10-PCS; 2021-03-30)
PROC: B547ZZA Ultrasonography of Left Subclavian Vein, Guidance (ICD-10-PCS; 2021-03-30)
PROC: 5A1D70Z Performance of Urinary Filtration, Intermittent, Less than 6 Hours Per Day (ICD-10-PCS; 2021-03-31)
PROC: 05PYX3Z Removal of Infusion Device from Upper Vein, External Approach (ICD-10-PCS; 2021-04-01)
PROC: 05H533Z Insertion of Infusion Device into Right Subclavian Vein, Percutaneous Approach (ICD-10-PCS; 2021-04-04)
PROC: B546ZZA Ultrasonography of Right Subclavian Vein, Guidance (ICD-10-PCS; 2021-04-04)
PROC: 0JB70ZZ Excision of Back Subcutaneous Tissue and Fascia, Open Approach (ICD-10-PCS; 2021-04-06)
PROC: 05H633Z Insertion of Infusion Device into Left Subclavian Vein, Percutaneous Approach (ICD-10-PCS; 2021-04-06)
PROC: B547ZZA Ultrasonography of Left Subclavian Vein, Guidance (ICD-10-PCS; 2021-04-06)
PROC: 02HV33Z Insertion of Infusion Device into Superior Vena Cava, Percutaneous Approach (ICD-10-PCS; 2021-04-06)
PROC: B548ZZA Ultrasonography of Superior Vena Cava, Guidance (ICD-10-PCS; 2021-04-06)
PROC: 30233N1 Transfusion of Nonautologous Red Blood Cells into Peripheral Vein, Percutaneous Approach (ICD-10-PCS; 2021-04-07)
DX: T80.211A Bloodstream infection due to central venous catheter, initial encounter (principal); A41.02 Sepsis due to Methicillin resistant Staphylococcus aureus; I21.4 Non-ST elevation (NSTEMI) myocardial infarction; G92 Toxic encephalopathy; J69.0 Pneumonitis due to inhalation of food and vomit; E43 Unspecified severe protein-calorie malnutrition; R65.21 Severe sepsis with septic shock; N18.6 End stage renal disease; L89.153 Pressure ulcer of sacral region, stage 3; L89.323 Pressure ulcer of left buttock, stage 3; R53.2 Functional quadriplegia; D68.59 Other primary thrombophilia; I12.0 Hypertensive chronic kidney disease with stage 5 chronic kidney disease or end stage renal disease; J96.10 Chronic respiratory failure, unspecified whether with hypoxia or hypercapnia; E87.0 Hyperosmolality and hypernatremia; E87.2 Acidosis; N39.0 Urinary tract infection, site not specified; R64 Cachexia; Z99.11 Dependence on respirator [ventilator] status; J90 Pleural effusion, not elsewhere classified; I27.20 Pulmonary hypertension, unspecified; Z20.822 Contact with and (suspected) exposure to COVID-19; Z93.0 Tracheostomy status; Z93.1 Gastrostomy status; D63.1 Anemia in chronic kidney disease; E11.22 Type 2 diabetes mellitus with diabetic chronic kidney disease; E78.5 Hyperlipidemia, unspecified; E83.39 Other disorders of phosphorus metabolism; I25.10 Atherosclerotic heart disease of native coronary artery without angina pectoris; Z85.038 Personal history of other malignant neoplasm of large intestine; Z99.2 Dependence on renal dialysis; N40.1 Benign prostatic hyperplasia with lower urinary tract symptoms; M24.571 Contracture, right ankle; M24.572 Contracture, left ankle; I34.0 Nonrheumatic mitral (valve) insufficiency; Z74.09 Other reduced mobility; Z86.19 Personal history of other infectious and parasitic diseases; Z68.23 Body mass index [BMI] 23.0-23.9, adult; M24.522 Contracture, left elbow; M24.521 Contracture, right elbow; M62.50 Muscle wasting and atrophy, not elsewhere classified, unspecified site; B96.5 Pseudomonas (aeruginosa) (mallei) (pseudomallei) as the cause of diseases classified elsewhere; K21.9 Gastro-esophageal reflux disease without esophagitis; L89.329 Pressure ulcer of left buttock, unspecified stage; R13.10 Dysphagia, unspecified; Y84.8 Other medical procedures as the cause of abnormal reaction of the patient, or of later complication, without mention of misadventure at the time of the procedure; Y92.129 Unspecified place in nursing home as the place of occurrence of the external cause; E87.6 Hypokalemia
CPT/HCPCS: 31720; 36410; 36415; 70450-TC; 71045-TC; 80048-TC; 80053-TC; 80061-TC; 80202-TC; 81001; 82248-TC; 82378; 82533; 82962-TC; 83540-TC; 83605-TC; 83735-TC; 83880; 84100-TC; 84439-TC; 84443-TC; 84484-TC; 85025-TC; 86706; 86803; 86850-TC; 87040-TC; 87070-TC; 87081-TC; 87086-TC; 87186-TC; 87340; 90935-TC; 93307-TC; 94002-TC; 94003-TC; 94640-TC; 94760-TC; 94762-TC; 94799-TC; A4216; A6248; A6253; A6403; C1750; G0378; J0885; J1815; J1953; J2185; J2543; J3370; J3480; J3490; J7030; J7040; J7050; J7060; P9016; P9047